=== PATIENT | male | born 1950 | race Caucasian/White ===

== ENCOUNTER → 2017-12-14 09:04 | Outpatient (CLI) | payer MEDICARE, OTHER, SELFPAY ==
[2017-12-14 09:44] VITALS: BP 145/74; BP 149/88; PULSE 110; PULSE 67; RESP 18; RESP 22; O2SAT 75; O2SAT 88
== END ==
PROVIDERS: PCP Family Medicine; Visit Provider Internal Medicine
DX: R06.02 Shortness of breath (principal); J84.9 Interstitial pulmonary disease, unspecified; R09.02 Hypoxemia
CPT/HCPCS: 94618

== ENCOUNTER → 2018-01-08 10:10 | Outpatient (POV) | payer MEDICARE, OTHER, SELFPAY ==
[2018-01-08 12:33] LABS: Basophils # 0.1 K/mm3 (0-0.2); Basophils % 0.7 % (0.1-2.0); Eosinophils # 0.2 K/mm3 (0.0-0.4); Hematocrit 48.2 % (42.0-52.0); Hemoglobin 16.1 g/dL (14.1-18.0); Lymphocytes # 2.2 K/mm3 (0.7-4.5); Lymphocytes % 28.4 K/mm3 (10-50); Mean Corpuscular HGB Conc 33.4 g/dL (31.8-35.4); Mean Corpuscular Hemoglobin 34.7 pg (27.0-31.2); Mean Platelet Volume 8.4 fl (7.4-10.4); Monocytes # 0.5 K/mm3 (0.1-1.0); Monocytes % 6.1 % (1.7-9.3); Platelet Count 192 K/mm3 (142-424); Red Blood Count 4.63 M/mm3 (4.60-6.20); White Blood Count 7.9 K/mm3 (4.8-10.8)
[2018-01-08 13:13] LABS: Alanine Aminotransferase 39 U/L (12-78); Albumin Level 3.7 gm/dL (3.4-5.0); Albumin/Globulin Ratio 0.9 (1.1-1.8); Alkaline Phosphatase 79 U/L (46-116); Anion Gap 14.5 mEq/L (5-15); Aspartate Amino Transferase 35 U/L (15-37); Bilirubin,Total 0.8 mg/dL (0.2-1.0); Blood Urea Nitrogen 15 mg/dL (7-18); Calcium 9.5 mg/dL (8.5-10.1); Carbon Dioxide 28 mmol/L (21.0-32.0); Chloride 103 mmol/L (98-107); Creatinine,Serum 0.93 mg/dL (0.70-1.30); Estimated Glomerular Filt Rate 81 ml/min (>60); GFR (African American) 98 ML/MIN (>60); Globulin 4.1 gm/dl (1.3-3.2); Glucose 108 mg/dL (74-106); Potassium 3.5 mmoL/L (3.5-5.1); Sodium 142 mmol/L (136-145); Total Protein,Serum 7.8 gm/dL (6.4-8.2)
== END ==
PROVIDERS: PCP Family Medicine; Visit Provider Internal Medicine
DX: J84.112 Idiopathic pulmonary fibrosis (principal)
CPT/HCPCS: 36415; 80053; 85025

== ENCOUNTER → 2018-06-12 12:13 | Outpatient (CLI) | payer MEDICARE, OTHER, SELFPAY ==
[2018-06-12 13:00] VITALS: PULSE 82; PULSE 88
[2018-06-12 13:30] VITALS: BP 128/87; BP 150/95; PULSE 127; PULSE 83; RESP 18; RESP 24; O2SAT 82; O2SAT 93
--- NOTE | 2018-06-12 13:38 | CT_ITS ---
CT chest wo con HISTORY: idiopathic pulmonary fibrosis ITS.REASON: SHORTNESS OF BREATH,HYPOXEMIA,IPF ORDERING PHYSICIAN: Fausto Medina MD PATIENT AGE: 67 years COMPARISON: 06/06/2017 Technique: Axial images obtained with sagittal and coronal reformats. All CT scans at the facility use one or more dose reduction, viz: automated exposure control, ma/kV adjustment per patient size (including targeted exams where dose is matched to indication, i.e. head), or iterative reconstruction technique. FINDINGS: Scattered small nodes are present in the mediastinum. There is diffuse coronary artery calcification. No evidence of aortic aneurysm. The main pulmonary artery and right and left main pulmonary arteries are somewhat prominent with the pulmonary artery/aortic ratio slightly greater than 1 which may be seen with pulmonary arterial hypertension. No mediastinal or hilar mass. There are centrilobular emphysematous changes. There is mild diffuse pulmonary fibrosis in the peripheral lung sorto most prominent in the mid and lower lung zones. This is similar when compared to the previous exam. Mild diffuse bronchial thickening and mild traction bronchiectasis noted in the lung bases No suspicious nodules or infiltrates. No effusions. Upper abdominal images are unremarkable. IMPRESSION: 1. Mild diffuse pulmonary fibrosis with centrilobular emphysema and diffuse bronchial thickening with traction bronchiectasis overall not significantly changed 2. Coronary artery disease with 3. Mild prominence of the pulmonary arteries suggesting pulmonary arterial hypertension
== END ==
PROVIDERS: PCP Family Medicine; Visit Provider Internal Medicine
DX: R06.02 Shortness of breath (principal); J84.112 Idiopathic pulmonary fibrosis
CPT/HCPCS: 71250; 94060; 94618; 94640; 94726; 94729

== ENCOUNTER → 2018-07-23 08:35 | Outpatient (POV) | payer MEDICARE, OTHER, SELFPAY ==
--- NOTE | 2018-07-23 09:43 | CA_ITS ---
PROCEDURE: 2-D M-mode and color Doppler study INDICATIONS FOR THE TEST: Chest pain COPD Heart Murmur Tobacco Smoking Palpitations Fatigue Syncope Edema Hypertension Diabetes Mellitus Rheumatic Fever SOB+LENZ Obesity Hyperlipidemia Family History HD Additional History PULMONARY HTN PATIENT INFORMATION HEIGHT: 72 WEIGHT:240 GENDER: Male B/P:127/74 2-D/M-MODE INTERPRETATION: 2-D MEASUREMENTS OBSERVED VALUES IN CMS Right Ventricular Dimension (RVDd) 2.2 Interventricular Septum (Thickness)(IVsd) 1.2 Left Ventricular Internal Dimensions(LVIDd) 5.6 Left Ventricular Posterior Wall (Thickness)(LVPWd) 0.8 Aortic Root 3.3 Aortic Cusp Separation 2.0 Left Atrial Dimensions (LAD) 4.1 2D 1. Left atrium is mildly enlarged, left ventricle is normal size, mild concentric left ventricular hypertrophy, visually estimated ejection fraction 55% with no regional wall motion abnormality. 2. The right atrium and right ventricle are mildly enlarged with normal contractility. 3. The aortic valve is minimally thickened and fibrosed. 4. The mitral and tricuspid valvular grossly normal. 5. The pulmonic valve is poorly visualized. 6. No significant pericardial effusion noted. DOPPLER INTERROGATION: Doppler interrogation of the aortic, mitral and tricuspid valvular presence of mild mitral and tricuspid regurgitation, tricuspid regurgitation jet velocity is inadequate for calculation of the right ventricular systolic pressure, grade 1 diastolic dysfunction seen with tissue Doppler evidence of raised left atrial pressure. CONCLUSION: 1. Mild biatrial enlargement, normal left ventricular size, visually estimated ejection fraction 55% with no regional wall motion abnormality, grade 1 diastolic dysfunction seen with tissue Doppler evidence of raised left atrial pressure. 2. Mildly enlarged right ventricle with normal contractility. 3. Mild mitral and tricuspid regurgitation 4. No significant pericardial effusion noted.
[2018-07-23 10:38] LABS: Basophils # 0.1 K/mm3 (0-0.2); Basophils % 0.5 % (0.1-2.0); Eosinophils # 0.1 K/mm3 (0.0-0.4); Eosinophils % 1.4 % (0.1-12.0); Hemoglobin 16.3 g/dL (14.1-18.0); Lymphocytes # 1.9 K/mm3 (0.7-4.5); Lymphocytes % 22.6 K/mm3 (10-50); Mean Corpuscular HGB Conc 32.5 g/dL (31.8-35.4); Mean Corpuscular Hemoglobin 34.3 pg (27.0-31.2); Mean Corpuscular Volume 105.4 fl (80-94); Mean Platelet Volume 7.3 fl (7.4-10.4); Monocytes # 0.5 K/mm3 (0.1-1.0); Neutrophils # 5.8 K/mm3 (1.8-7.8); Neutrophils % 69.6 % (37.0-80.0); Platelet Count 207 K/mm3 (142-424); Red Blood Count 4.75 M/mm3 (4.60-6.20); Red Cell Distribution Width 13.4 % (11.5-17.5); White Blood Count 8.4 K/mm3 (4.8-10.8)
[2018-07-23 12:18] LABS: Alanine Aminotransferase 34 U/L (12-78); Albumin Level 3.8 gm/dL (3.4-5.0); Alkaline Phosphatase 67 U/L (46-116); Aspartate Amino Transferase 35 U/L (15-37); Bilirubin,Direct 0.3 mg/dL (0.0-0.2); Bilirubin,Total 0.8 mg/dL (0.2-1.0); Blood Urea Nitrogen 10 mg/dL (7-18); Carbon Dioxide 25 mmol/L (21.0-32.0); Chloride 99 mmol/L (98-107); Creatinine,Serum 0.94 mg/dL (0.70-1.30); Estimated Glomerular Filt Rate 80 ml/min (>60); GFR (African American) 97 ML/MIN (>60); Glucose 101 mg/dL (74-106); Sodium 139 mmol/L (136-145); Thyroid Stimulating Hormone 1.73 uIU/ml (0.358-3.740); Total Protein,Serum 7.8 gm/dL (6.4-8.2)
== END ==
LOC: SC 08:36 → RT 09:34
PROVIDERS: PCP Family Medicine; Visit Provider Internal Medicine
DX: I27.23 Pulmonary hypertension due to lung diseases and hypoxia (principal); J84.112 Idiopathic pulmonary fibrosis; Z79.899 Other long term (current) drug therapy
CPT/HCPCS: 36415; 80053; 80076; 82248; 84443; 85025; 93306

== ENCOUNTER 2018-09-08 08:59 | Inpatient (IN) ==
--- NOTE | 2018-09-08 09:18 | Emergency Department Note ---
ED Disposition Clinical Impression: Pulmonary fibrosis, Dyspnea on exertion, Hypoxia Community acquired pneumonia Qualifiers: Laterality: unspecified laterality Qualified Code(s): J18.9 - Pneumonia, unspecified organism Dyspnea Qualifiers: Dyspnea type: unspecified Qualified Code(s): R06.00 - Dyspnea, unspecified Disposition: Admitted As Inpatient Condition on Discharge: Fair (Stable) Referrals: Pilar Saez MD [Primary Care Provider] - Madi Toth MD [Staff Physician] - Time of Disposition: 11:35 - Critical Care Critical Care Time: No Attestation: On 09/08/18, the high probability of a clinically significant, sudden or life threatening deterioration of the following system(s) required my full and direct attention, intervention and personal management. The time I documented below is in addition to time spent performing reported procedures but includes the following listed in this critical care notation. Medical Decision Making - Medical Records Medical records reviewed: Yes: I reviewed the patient's medical records. - Subhash Inquiry Pt receiving controlled substance: No Subhash was queried for this patient: No Vital Signs: 09/08/18 09:00 09/08/18 09:04 09/08/18 09:17 Temperature 97.6 F Temperature Source Oral Pulse Rate 77 Pulse Rate [Apical] 77 114 H Respiratory Rate 20 28 H Blood Pressure [Right Radial Artery] 155/89 H 151/103 H Blood Pressure Mean [Right Radial Artery] 111 119 Blood Pressure Source [Right Radial Artery] Automatic Cuff Automatic Cuff Blood Pressure Position [Right Radial Artery] Sitting Sitting 02 Sat by Pulse Oximetry 94 L 70 L 93 L Oxygen Delivery Method Non-Rebreather Nasal Cannula Non-Rebreather Oxygen Flow Rate (LPM) 12 3 15 09/08/18 09:30 09/08/18 10:00 09/08/18 10:49 Temperature Temperature Source Pulse Rate Pulse Rate [Apical] 74 75 60 Respiratory Rate 20 22 20 Blood Pressure [Right Radial Artery] 144/88 H 137/88 132/72 Blood Pressure Mean [Right Radial Artery] 106 104 92 Blood Pressure Source [Right Radial Artery] Automatic Cuff Automatic Cuff Automatic Cuff Blood Pressure Position [Right Radial Artery] Sitting Sitting Sitting 02 Sat by Pulse Oximetry 92 L 93 L 93 L Oxygen Delivery Method Non-Rebreather Venturi Mask Venturi Mask Oxygen Flow Rate (LPM) 12 12 12 - Lab Data Lab results reviewed: Yes: I reviewed the patient's lab results. Lab Results 09/08/18 09:12: Specimen Source Right radial, O2 % 40, ABG pH 7.52 H, ABG pCO2 28.2 L, ABG pO2 60.9 L, ABG HCO3 22.4, ABG Total CO2 23.2, ABG O2 Saturation 92, ABG Base Excess -0.5, Jean Test Acceptable 09/08/18 09:14: WBC 8.8, RBC 4.66, Hgb 16.8, Hct 49.0, MCV 105.3 H, MCH 36.1 H, MCHC 34.3, RDW 14.4, Plt Count 202, MPV 8.0, Neut % (Auto) 73.5, Lymph % (Auto) 18.8, [place] % (Auto) 5.1, Eos % (Auto) 2.0, Baso % (Auto) 0.6, Neut # (Auto) 6.4, Lymph # (Auto) 1.7, [place] # (Auto) 0.4, Eos # (Auto) 0.2, Baso # (Auto) 0.1 09/08/18 09:14: Sodium 140, Potassium 3.1 L, Chloride 100, Carbon Dioxide 27, Anion Gap 12.7, BUN 14, Creatinine 1.09, Estimated Creat Clear 98, Estimated GFR 67, Est GFR ( Amer) 81, Glucose 137 H, Calcium 9.9, Total Bilirubin 1.2 H , AST 23, ALT 28, Alkaline Phosphatase 79, Total Creatine Kinase 50, CK-MB (CK-2) 0.7, Troponin I < 0.02, Total Protein 8.6 H, Albumin 3.7, Globulin 4.9 H, Albumin/Globulin Ratio 0.8 L 09/08/18 09:14: D-Dimer 768 H* 09/08/18 09:14: Magnesium 1.4 09/08/18 09:14: B-Natriuretic Peptide 128 H Result diagrams: 09/08/18 09:14 09/08/18 09:14 Orders (Tests/Meds): ED MEDICATIONS Generic Name Dose Route Start Last Admin Trade Name Freq PRN Reason Stop Dose Admin Aspirin 81 mg 09/08/18 11:45 Aspirin 81mg Enteric Coated Tablet PO 10/08/18 11:44 DAILY GINA Hydrochlorothiazide 25 mg 09/08/18 11:45 Hctz 25mg Tablet PO 10/08/18 11:44 DAILY GINA Azithromycin 500 mg/ Sodium 250 mls @ 250 mls/hr 09/08/18 11:45 Chloride IV 09/22/18 11:44 Q24H [facility] Protocol Ceftriaxone Sodium 1 gm/ 50 mls @ 100 mls/hr 09/08/18 11:45 Sodium Chloride IV 09/22/18 11:44 Q24H [facility] Protocol Metoprolol Tartrate 50 mg 09/08/18 11:45 Lopressor 50mg Tablet PO 10/08/18 11:44 BID GINA Non-Formulary Medication 1 cap 09/08/18 11:45 Beta-Carotene(A)-Vits C,E/Mins [Antioxidant Softgel] PO 10/08/18 11:44 DAILY GINA Non-Formulary Medication 20 mg 09/08/18 11:37 Esomeprazole Magnesium [Esomeprazole Magnesium] PO DAILY PRN stomach Non-Formulary Medication 267 mg 09/08/18 13:00 Pirfenidone [Esbriet] PO 10/08/18 12:59 TID GINA Non-Formulary Medication 100 mg 09/08/18 11:45 Ubidecarenone [Coenzyme Q10] PO 10/08/18 11:44 DAILY [facility] Pravastatin Sodium 40 mg 09/08/18 11:45 Pravachol 40mg Tablet PO 10/08/18 11:44 DAILY [facility] Sodium Chloride 3 ml 09/08/18 09:12 Sodium Chloride 3% 15ml [facility] 10/08/18 09:11 ONCE PRN INDUCE SPUTUM COLLECTION Discontinued Medications Generic Name Dose Route Start Last Admin Trade Name Freq PRN Reason Stop Dose Admin Albuterol/Ipratropium 3 ml 09/08/18 09:12 09/08/18 09:17 Duoneb 3ml Neb 09/08/18 09:13 3 ml ONCE ONE Administration Iopamidol 75 ml 09/08/18 10:42 09/08/18 10:43 [id number]; 75ml Vial IV 09/08/18 10:43 75 ml ONCE ONE Administration Protocol Methylprednisolone Sodium Succinate 125 mg 09/08/18 09:24 09/08/18 09:31 Solu-Medrol 125mg/2ml Vial IV 09/08/18 09:25 125 mg ONCE ONE Administration Potassium Chloride 40 meq 09/08/18 09:57 09/08/18 10:48 Klor-Con 20meq Tablet PO 09/08/18 09:58 40 meq ONCE ONE Administration Sodium Chloride 10 ml 09/08/18 10:42 09/08/18 10:42 Rad-Saline Flush 10ml Syringe IV 09/08/18 10:43 10 ml ONCE ONE Administration Sodium Chloride 50 ml 09/08/18 10:42 09/08/18 10:43 Rad-Sod Chloride 0.9% 250ml IV 09/08/18 10:43 50 ml ONCE ONE Administration ORDERS Category Date Time Status Blood Culture Stat Micro 09/08/18 09:14 Ordered Sputum Culture & Gram Stain Stat Micro 09/08/18 09:12 Ordered Arterial Blood Gas Stat RT 09/08/18 09:12 Ordered EKG Request [ECG Request by /Dread] Stat Y 09/08/18 09:13 Ordered - Radiology Data #1 Image(s): Chest Image Reviewed: Yes I reviewed the patient's radiology image Bilateral pulmonary fibrosis changes. Increased opacification LLL. - ECG Data Tracing #1 I reviewed this ECG and interpreted as documented below: (EKG at 09:32 showed NSR at 72 BPM with age undetermined anterior and inferior infarct changes.) Medical Decision Narrative: 09:21 Pt evaluated. EKG, PCXR and screening labs ordered. DuoNeb ordered. 10:04 EKG, PCXR and labs reviewed. D-dimer elevated so CT PE chest ordered. KCL 40 mEq PO ordered for potassium 3.1. Results of work up to this point discussed with pt, spouse and family. All questions answered. 11:32 CT PE report reviewed. Rocephin 1 gm IVPB and Zithromax 500 mg IVPB ordered. Results of work up, diagnosis and care plan discussed with pt, spouse and family. They understand and all questions answered. I will contact Dr. Toth hearing care practitioner for Dr. Saez and pt will be admitted. Resp/SOB HPI - General Stated Complaint: SOB Time Seen by Provider: 09/08/18 09:07 Mode of Arrival: Wheelchair Source of Information: Patient, Spouse, Relative Limitations: No Limitations - History of Present Illness Pt is here in the ER via POV from home for evaluation c/o increasing dyspnea and LENZ over the past 5 days. Pt does have pulmonary fibrosis and has been getting treated by pipeline engineer Dr. Medina in [place]. He has had a cough that has been nonproductive. No chest pain. Pt is scheduled for a stress test next Sunday. He uses home O2 at night. Pt has not taken any of his usual home medicines this morning. No other complaints. - Related Data Home Medications Medication Instructions Recorded Confirmed aspirin 81 mg tablet,delayed 81 mg PO DAILY 09/04/18 09/08/18 release coenzyme Q10 100 mg capsule 100 mg PO DAILY 09/04/18 09/08/18 esomeprazole magnesium 20 mg 20 mg PO DAILY PRN 09/04/18 09/08/18 capsule,delayed release hydrochlorothiazide 25 mg tablet 25 mg PO DAILY 09/04/18 09/08/18 metoprolol tartrate 50 mg tablet 50 mg PO BID 09/04/18 09/08/18 pirfenidone 267 mg capsule 267 mg PO TID 09/04/18 09/08/18 pravastatin 40 mg tablet 40 mg PO DAILY 09/04/18 09/08/18 vitamin A-vitamin C-vit E-min 1 cap PO DAILY cap 09/04/18 09/08/18 capsule Allergies Allergy/AdvReac Type Severity Reaction Status Date / Time No Known Allergies Allergy Unknown Uncoded 09/18/17 14:49 [facility] History I have reviewed the patient's past medical history: Yes Medical History: Reports:: Gastroesophageal Reflux Disease(GERD), Hepatitis (as a kid), Home Oxygen, Hyperlipidemia, Hypertension, Lung Disease (Pulmonary fibrosis) Comment: Pulmonary fibrosis Other Surgeries: Yes: Appendectomy Amputation: No Fractures: No - Social History Smoking Status: Former smoker Alcohol Intake: current Alcohol Intake Frequency:: holidays/special occasions only Substance Use Type: denies use Household Members: spouse Family Hx:: No significant family history ROS Obtained: Yes All systems reviewed & no additional complaints - Constitutional Constitutional: Reports system reviewed and no additional complaints, except as docu - Eyes Eyes: Reports system reviewed and no additional complaints, except as docu - ENT Ears, Nose, Mouth, and Throat: Reports system reviewed and no additional complaints, except as docu - Cardiovascular Cardiovascular: Reports system reviewed and no additional complaints, except as docu - Respiratory Respiratory: Yes system reviewed and no additional complaints, except as docu, Yes as per HPI, Yes non-productive cough, Yes dyspnea, Yes dyspnea on exertion - Gastrointestinal Gastrointestingal: Reports: system reviewed and no additional complaints, except as docu - Genitourinary Male Genitourinary: Reports system reviewed and no additional complaints, except as docu - Musculoskeletal Musculoskeletal: Reports system reviewed and no additional complaints, except as docu - Integumentary/Breasts Skin/Breast: Reports system reviewed and no additional complaints, except as docu - Neurologic Neurologic: Reports system reviewed and no additional complaints, except as docu - Endocrine Endocrine: Reports system reviewed and no additional complaints, except as docu - Hematologic/Lymphatic Henatologic/Lymphatic: Reports system reviewed and no additional complaints, except as docu - Allergic/Immunologic Allergic/Immunologic: Reports system reviewed and no additional complaints, except as docu Physical Exam - General General appearance: alert, anxious (mild), other (appears dyspneic) - Head Head exam: atraumatic, normocephalic - Eye Eye exam: Present: PERRL, EOMI - ENT ENT exam: Present: mucous membranes moist - Neck Neck exam: Present: trachea midline - Chest Chest inspection: Present: normal inspection, symmetric chest wall rise - Respiratory Respiratory exam: Present: other (Equally diminished BS bilaterally with scattered end expiratory wheeze.) - Cardiovascular Cardiovascular exam: Present: tachycardia, normal heart sounds - Abdominal Exam Abdominal exam: Present: soft. Absent: tenderness, rebound - Extremities Exam Extremities exam: Present: normal inspection, full ROM. Absent: tenderness, pedal edema - Neurological Exam Neurological exam: Present: alert, oriented X3, CN II-XII intact - Psychiatric Psychiatric exam: Present: anxious (mildly) - Skin Skin exam: Present: warm, dry, other (ashen )
[2018-09-08 09:34] LABS: Basophils # 0.1 K/mm3 (0-0.2); Basophils % 0.6 % (0.1-2.0); Eosinophils # 0.2 K/mm3 (0.0-0.4); Hemoglobin 16.8 g/dL (14.1-18.0); Lymphocytes # 1.7 K/mm3 (0.7-4.5); Lymphocytes % 18.8 % (10-50); Mean Corpuscular HGB Conc 34.3 g/dL (31.8-35.4); Mean Corpuscular Hemoglobin 36.1 pg (27.0-31.2); Mean Corpuscular Volume 105.3 fl (80-94); Monocytes # 0.4 K/mm3 (0.1-1.0); Monocytes % 5.1 % (1.7-9.3); Neutrophils # 6.4 K/mm3 (1.8-7.8); Neutrophils % 73.5 % (37.0-80.0); Platelet Count 202 K/mm3 (142-424); Red Blood Count 4.66 M/mm3 (4.60-6.20); Red Cell Distribution Width 14.4 % (11.5-17.5); White Blood Count 8.8 K/mm3 (4.8-10.8)
[2018-09-08 09:42] LABS: ABG Base Excess -0.5 mmol/L (-2.4-2.3); ABG HCO3 22.4 mmhg (22.0-26.0); ABG Oxygen Saturation 92 % (90-100); ABG PCO2 28.2 mmhg (35.0-45.0); ABG PH 7.52 mmol/L (7.35-7.45); ABG PO2 60.9 mmhg (80-100); ABG TCO2 23.2 mmhg (23-27)
[2018-09-08 09:44] LABS: Oxygen 40 %
[2018-09-08 09:45] LABS: Allen's Test Acceptable
[2018-09-08 09:55] LABS: Anion Gap 12.7 mEq/L (5-15); Blood Urea Nitrogen 14 mg/dL (7-18); Carbon Dioxide 27 mmol/L (21.0-32.0); Chloride 100 mmol/L (98-107); Creatine Kinase 50 U/L (39-308); Potassium 3.1 mmoL/L (3.5-5.1); Sodium 140 mmol/L (136-145)
[2018-09-08 09:56] LABS: Alanine Aminotransferase 28 U/L (12-78); Albumin Level 3.7 gm/dL (3.4-5.0); Albumin/Globulin Ratio 0.8 (1.1-1.8); Alkaline Phosphatase 79 U/L (46-116); Aspartate Amino Transferase 23 U/L (15-37); Bilirubin,Total 1.2 mg/dL (0.2-1.0); Calcium 9.9 mg/dL (8.5-10.1); Globulin 4.9 gm/dl (1.3-3.2); Glucose 137 mg/dL (74-106); Total Protein,Serum 8.6 gm/dL (6.4-8.2)
--- NOTE | 2018-09-08 12:39 | Pharmacy Consult Notes ---
[facility] Pharmacy VTE Monitoring - Patient Demographics Admission date: 09/08/18 Report Date: 09/08/18 Time: 12:39 Allergies/Adverse Reactions: Patient Allergies No Known Allergies Allergy (Unverified 09/08/18 12:32) Height: 1.83 m Weight: 108.862 kg Patient Problems: Current Active Problems Community acquired pneumonia (Acute) Dyspnea (Acute) Dyspnea on exertion (Acute) Hypoxia (Acute) Pulmonary fibrosis (Chronic) - VTE Risk Labs: VTE Related Lab Results Hgb 16.8 g/dL (14.1-18.0) 09/08/18 09:14 Hct 49.0 % (42.0-52.0) 09/08/18 09:14 Plt Count 202 K/mm3 (142-424) 09/08/18 09:14 BUN 14 mg/dL (7-18) 09/08/18 09:14 Creatinine 1.09 mg/dL (0.70-1.30) 09/08/18 09:14 Estimated Creat Clear 98 mL/min (50-200) 09/08/18 09:14 - Prophylaxis VTE Prophylaxis Ordered?: Yes Types of VTE Prophylaxis: TEDS Knee High Location of Applied Device: Bilateral Lower Extremeties - VTE Diagnosis Confirmed Treatment or plan recommended: Continue Current Treatment
--- NOTE | 2018-09-09 08:55 | History & Physical Report ---
*Admission Date: 09/08/18 <Suzie Lowry 09/09/18 08:55> *Chief complaint: Shortness of breath <Suzie Lowry 09/09/18 08:55> *History of present illness: Mr. Aviles is a 68-year-old male with a history of idiopathic pulmonary fibrosis/pulmonary emphysema, pulmonary hypertension due to the interstitial lung disease, and high risk medication use. Presented to [facility] emergency room yesterday after progressive shortness of breath over the past 4 to 5 days. Describes a dry nonproductive cough. He has had difficulty ambulating very short distances. He denies fever and chest pain. Patient is followed by cigar brander Dr. Medina in [place]. Pt is scheduled for a stress test next Sunday. He uses home O2 at night. He is also on the drug Esbriet which has caused diarrhea. He has had minimal p.o. intake for the last 2-3 days. <Suzie Lowry 09/09/18 09:17> [facility] History Medical History: Reports:: Gastroesophageal Reflux Disease(GERD), Hepatitis (as a kid), Home Oxygen, Hyperlipidemia, Hypertension, Lung Disease (Pulmonary fibrosis) Denies:: Cancer, Diabetes Mellitus Type 1, Diabetes Mellitus Type 2, Pulmonary Embolism <Suzie Lowry 09/09/18 09:17> Comment: Pulmonary fibrosis; pulmonary hypertension <Suzie Lowry 09/09/18 09:17> Other Surgeries: Yes: Appendectomy <Suzie Lowry 09/09/18 08:55> Amputation: No <Suzie Lowry 09/09/18 08:55> Fractures: No <Suzie Lowry 09/09/18 08:55> - *Social History Educational Level: Attended College <Suzie Lowry 09/09/18 08:55> Tobacco Type: e-cigarettes <Suzie Lowry 09/09/18 08:55> Alcohol Intake: current <Suzie Lowry 09/09/18 08:55> Alcohol Intake Frequency:: holidays/special occasions only <Suzie Lowry 09/09/18 08:55> Substance Use Type: denies use <Suzie Lowry 09/09/18 08:55> Occupational Status: employed, retired <Suzie Lowry 09/09/18 08:55> Household Members: spouse <Suzie Lowry 09/09/18 08:55> - Psychiatric History Expresses thoughts of harming self/others: None <Suzie oLwry 09/09/18 08:55> Suicide Plan Description: No Plan <Suzie Lowry 09/09/18 08:55> *Family Hx:: No significant family history <Suzie Lowry 09/09/18 08:55> Review of Systems - Constitutional Reports weakness, Denies fever(s) <Suzie Lowry 09/09/18 09:17> - ENT Denies headache(s), Denies sore throat <Suzie Lowry 09/09/18 09:17> - *Cardiovascular Reports shortness of breath, Reports shortness of breath with activity, Denies chest pain, Denies generalized swelling, Denies irregular heart rhythm, Denies leg swelling, Denies rapid, pounding, or irregular heartbeat <Suzie Lowry 09/09/18 09:17> - *Respiratory Reports cough, Reports shortness of breath, Reports shortness of breath with activity, Denies chest congestion, Denies coughing up blood, Denies pain with cough, Denies wheezing <Suzie Lowry 09/09/18 09:17> - *Gastrointestinal Reports loose stools (Watery stools 2 times daily. Occurs mostly after he eats), Denies abdominal pain, Denies heartburn, Denies black, tarry stools, Denies nausea, Denies vomiting <LowrySuzie 09/09/18 09:17> - *Genitourinary Denies difficulty urinating <Suzie Lowry 09/09/18 09:17> - *Musculoskeletal Comments: Shortness of breath with walking to the bathroom <Suzie Lowry 09/09/18 09:17> - *Neurologic Reports dizziness, Denies behavioral changes, Denies confusion, Denies seizure- like activity, Denies seizure-like activity <Suzie Lowry 09/09/18 09:17> Meds Home Medications Medication Instructions Recorded Confirmed Type aspirin 81 mg tablet,delayed 81 mg PO DAILY 09/04/18 09/08/18 History release coenzyme Q10 100 mg capsule 100 mg PO DAILY 09/04/18 09/08/18 History esomeprazole magnesium 20 mg 20 mg PO DAILYP PRN 09/04/18 09/08/18 History capsule,delayed release hydrochlorothiazide 25 mg tablet 25 mg PO DAILY 09/04/18 09/08/18 History metoprolol tartrate 50 mg tablet 50 mg PO BID 09/04/18 09/08/18 History pirfenidone 267 mg capsule 267 mg PO TID 09/04/18 09/08/18 History pravastatin 40 mg tablet 40 mg PO DAILY 09/04/18 09/08/18 History vitamin A-vitamin C-vit E-min 1 cap PO DAILY cap 09/04/18 09/08/18 History capsule Losartan Potassium [Cozaar] 50 mg PO DAILY 09/08/18 09/08/18 History <Madi Toth - 09/09/18 14:18> Allergies Allergy/AdvReac Type Severity Reaction Status Date / Time No Known Allergies Allergy Unverified 09/08/18 12:32 <Madi Toth - 09/09/18 14:18> Exam Vital signs and Labs for Last 24 Hours: Temp Pulse Resp BP Pulse Ox 97.5 F L 85 22 126/74 92 L 09/09/18 11:41 09/09/18 13:28 09/09/18 11:41 09/09/18 11:41 09/09/18 11:41 Laboratory Results - last 24 hr 09/08/18 15:36: Lactate 1.7 09/09/18 09:40: Sodium 140, Potassium 3.3 L, Chloride 104, Carbon Dioxide 23, Anion Gap 16.3 H, BUN 17, Creatinine 1.11, Estimated Creat Clear 95, Estimated GFR 66, Est GFR ( Amer) 79, Glucose 231 H, Calcium 8.2 L D <Madi Toth - 09/09/18 14:18> Temp Pulse Resp BP Pulse Ox 97.5 F L 93 H 21 137/64 91 L 09/09/18 08:00 09/09/18 08:00 09/09/18 08:00 09/09/18 08:00 09/09/18 08:00 Laboratory Results - last 24 hr 09/08/18 09:12: Specimen Source Right radial, O2 % 40, ABG pH 7.52 H, ABG pCO2 28.2 L, ABG pO2 60.9 L, ABG HCO3 22.4, ABG Total CO2 23.2, ABG O2 Saturation 92, ABG Base Excess -0.5, Jean Test Acceptable 09/08/18 09:14: WBC 8.8, RBC 4.66, Hgb 16.8, Hct 49.0, MCV 105.3 H, MCH 36.1 H, MCHC 34.3, RDW 14.4, Plt Count 202, MPV 8.0, Neut % (Auto) 73.5, Lymph % (Auto) 18.8, [place] % (Auto) 5.1, Eos % (Auto) 2.0, Baso % (Auto) 0.6, Neut # (Auto) 6.4, Lymph # (Auto) 1.7, [place] # (Auto) 0.4, Eos # (Auto) 0.2, Baso # (Auto) 0.1 09/08/18 09:14: Sodium 140, Potassium 3.1 L, Chloride 100, Carbon Dioxide 27, Anion Gap 12.7, BUN 14, Creatinine 1.09, Estimated Creat Clear 98, Estimated GFR 67, Est GFR ( Amer) 81, Glucose 137 H, Calcium 9.9, Total Bilirubin 1.2 H, AST 23, ALT 28, Alkaline Phosphatase 79, Total Creatine Kinase 50, CK-MB (CK- 2) 0.7, Troponin I < 0.02, Total Protein 8.6 H, Albumin 3.7, Globulin 4.9 H, Albumin/Globulin Ratio 0.8 L 09/08/18 09:14: D-Dimer 768 H* 09/08/18 09:14: Magnesium 1.4 09/08/18 09:14: B-Natriuretic Peptide 128 H 09/08/18 09:14: Lactate 3.0 H 09/08/18 13:30: Lactate 2.3 H 09/08/18 15:36: Lactate 1.7 <Suzie Lowry - 09/09/18 08:55> I & O for Last 24 hours: Intake & Output 09/07/18 09/08/18 09/09/18 09/10/18 11:59 11:59 11:59 11:59 Intake Total 222 / 2227 480 / 480 Balance 2226 / 2227 480 / 480 Weight 240 lb 236 lb 6 oz <Madi Toth - 09/09/18 14:18> Intake & Output 09/06/18 09/07/18 09/08/18 09/09/18 11:59 11:59 11:59 11:59 Intake Total 2226 / 7 Balance 222 / 2227 Weight 240 lb 236 lb 6 oz <Suzie Lowry - 09/09/18 08:55> Microbiology Reports for the Last 24 Hours: Microbiology 09/09/18 11:10 Sputum - Expectorated Sputum Gram Stain - Final <Madi Toth - 09/09/18 14:18> Radiology Reports for the Last 24 Hours: 09/08/2018 chest x-ray IMPRESSION: Cardiomegaly with pulmonary fibrosis 09/08/2018 CT of chest IMPRESSION: 1. No evidence of pulmonary embolus, aortic aneurysm, or aortic dissection. 2. Diffuse pulmonary fibrosis with superimposed ground glass density in the left upper lobe, right apex, and right lower lobe which could be due to edema or pneumonitis <Suzie Lowry 09/09/18 09:17> - Constitutional no acute distress <Suzie Lowry 09/09/18 09:17> - *Routine HEENT Exam Head: Present: normocephalic, atraumatic <Suzie Lowry 09/09/18 09:17> Eye: Present: PERRL. Absent: conjunctival icterus, scleral injection <Suzie Lowry 09/09/18 09:17> ENT: Present: mucous membranes moist, oropharynx clear <Suzie Lowry 09/09/18 09:17> - *Routine Neck Exam Present: supple, full ROM. Absent: carotid bruit, lymphadenopathy, thyromegaly <Suzie Lowry 09/09/18 09:17> - *Routine Respiratory Exam Comments: Fibrotic crackles posteriorly and bases <Suzie Lowry 09/09/18 09:17> - *Routine Cardiovascular Exam Present: RRR <Suzie Lowry 09/09/18 09:17> Comments: Monitor showing sinus rhythm in the 90s <Suzie Lowry 09/09/18 09:17> - *Routine Abdominal Exam Present: soft, normoactive bowel sounds. Absent: tenderness, distended, guarding <Suzie Lowry - 09/09/18 09:17> - *Routine Extremities Exam Absent: edema, calf tenderness <Suzie Lowry - 09/09/18 09:17> - *Routine Neurological Exam Present: alert, oriented X3 <Suzie Lowry - 09/09/18 09:17> Assessment and Plan (1) Community acquired pneumonia Current visit: Yes Status: Acute Qualifiers: Laterality: unspecified laterality Qualified Code(s): J18.9 - Pneumonia, unspecified organism Category: Medical Code(s): J18.9 - Pneumonia, unspecified organism (2) Pulmonary hypertension Current visit: Yes Status: Chronic Category: Medical Code(s): I27.20 - Pulmonary hypertension, unspecified (3) High risk medication use Current visit: Yes Status: Chronic Category: Medical Code(s): Z79.899 - Other usp (current) drug therapy (4) Dyspnea Current visit: Yes Status: Acute Qualifiers: Dyspnea type: unspecified Qualified Code(s): R06.00 - Dyspnea, unspecified Category: Medical Code(s): R06.00 - Dyspnea, unspecified (5) Hypoxia Current visit: Yes Status: Acute Category: Medical Code(s): R09.02 - Hypoxemia (6) Pulmonary fibrosis Current visit: Yes Status: Chronic Category: Medical Code(s): J84.10 - Pulmonary fibrosis, unspecified (7) Dizziness Current visit: No Status: Acute Category: Medical Code(s): R42 - Dizziness and giddiness <Madi Toth - 09/09/18 14:18> (1) Community acquired pneumonia Current visit: Yes Status: Acute Qualifiers: Laterality: unspecified laterality Qualified Code(s): J18.9 - Pneumonia, unspecified organism Category: Medical Code(s): J18.9 - Pneumonia, unspecified organism (2) Pulmonary hypertension Current visit: Yes Status: Chronic Category: Medical Code(s): I27.20 - Pulmonary hypertension, unspecified (3) High risk medication use Current visit: Yes Status: Chronic Category: Medical Code(s): Z79.899 - Other field supervisor (current) drug therapy (4) Dyspnea Current visit: Yes Status: Acute Qualifiers: Dyspnea type: unspecified Qualified Code(s): R06.00 - Dyspnea, unspecified Category: Medical Code(s): R06.00 - Dyspnea, unspecified (5) Hypoxia Current visit: Yes Status: Acute Category: Medical Code(s): R09.02 - Hypoxemia (6) Pulmonary fibrosis Current visit: Yes Status: Chronic Category: Medical Code(s): J84.10 - Pulmonary fibrosis, unspecified (7) Dizziness Current visit: No Status: Acute Category: Medical Code(s): R42 - Dizziness and giddiness <Suzie Lowry - 09/09/18 08:57> - Assessment and plan all Dx Assessment and Plan for all problems:: Saw patient, agree with above note. <Madi Toth - 09/09/18 14:18> Antibiotics Rocephin and Zithromax, duo nebs, and steroids. Will repeat BMP this morning. IV fluid rate decreased. <Suzie Lowry - 09/09/18 09:17>
[2018-09-09 10:06] LABS: Anion Gap 16.3 mEq/L (5-15); Potassium 3.3 mmoL/L (3.5-5.1)
[2018-09-09 10:12] LABS: Calcium 8.2 mg/dL (8.5-10.1)
--- NOTE | 2018-09-09 21:46 | Cardiology Report ---
PROCEDURE: 2-D M-mode and color Doppler study INDICATIONS FOR THE TEST: Chest pain COPD Heart Murmur Tobacco Smoking+ Palpitations Fatigue Syncope Edema Hypertension+Diabetes Mellitus Rheumatic Fever SOB+LENZ Obesity Hyperlipidemia+ Family History HD Additional History pulmonary fibrosis, pulmonary htn PATIENT INFORMATION HEIGHT:72 WEIGHT:236 GENDER: Male B/P:137/64 2-D/M-MODE INTERPRETATION: 2-D MEASUREMENTS OBSERVED VALUES IN CMS Right Ventricular Dimension (RVDd) 1.8 Interventricular Septum (Thickness)(IVsd) 0.8 Left Ventricular Internal Dimensions(LVIDd) 5.1 Left Ventricular Posterior Wall (Thickness)(LVPWd) 0.7 Aortic Root 2.8 Aortic Cusp Separation 1.6 Left Atrial Dimensions (LAD) 4.3 2D 1. Technically very difficult study because of the patient's factor and poor acoustic windows 2. Left atrium is mildly enlarged, left ventricle is normal size, mild concentric left ventricular hypertrophy, preserved left ventricular systolic function, visually estimated ejection fraction of 55% with no regional wall motion abnormality. Endocardial surfaces are poorly visualized. 3. The right atrium and right ventricle are moderately enlarged, contractility of the right ventricle is normal. 4. The aortic valve is thickened and calcified leaflet continue to display mobility 5. The mitral and tricuspid valve leaflets are minimally thickened. 6. The pulmonic valve is poorly visualized. 7. No significant pericardial effusion noted. DOPPLER INTERROGATION: Doppler interrogation of the aortic, mitral and tricuspid valvular presence of mild mitral and tricuspid regurgitation, tricuspid regurgitation jet velocity is inadequate for calculation of the right ventricular systolic pressure, diastolic parameters are inconclusive. CONCLUSION: 1. Biatrial enlargement, normal left ventricular size, mild concentric left ventricular hypertrophy, visually estimated ejection fraction of 55% with no regional wall motion abnormality. Diastolic parameters are inconclusive. 2. Moderately enlarged right ventricle with normal contractility. 3. Mild mitral and tricuspid regurgitation 4. No significant pericardial effusion noted.
[2018-09-10 06:21] LABS: Hematocrit 44.3 % (42.0-52.0); Hemoglobin 13.9 g/dL (14.1-18.0); Lymphocytes # 0.7 K/mm3 (0.7-4.5); Lymphocytes % 4.9 % (10-50); Mean Corpuscular HGB Conc 31.3 g/dL (31.8-35.4); Mean Corpuscular Hemoglobin 33.7 pg (27.0-31.2); Mean Corpuscular Volume 107.4 fl (80-94); Mean Platelet Volume 8.3 fl (7.4-10.4); Monocytes # 0.3 K/mm3 (0.1-1.0); Monocytes % 2.2 % (1.7-9.3); Neutrophils # 12.2 K/mm3 (1.8-7.8); Neutrophils % 92.8 % (37.0-80.0); Platelet Count 168 K/mm3 (142-424); Red Blood Count 4.12 M/mm3 (4.60-6.20); Red Cell Distribution Width 14.4 % (11.5-17.5); White Blood Count 13.2 K/mm3 (4.8-10.8)
[2018-09-10 06:24] LABS: Anion Gap 14.6 mEq/L (5-15); Calcium 8.2 mg/dL (8.5-10.1); Potassium 3.6 mmoL/L (3.5-5.1)
--- NOTE | 2018-09-10 07:48 | Progress Note ---
<Suzie Lowry - Last Filed: 09/10/18 07:42> Internal Medicine - PN: Subj *Date: 09/10/18 *Time: 07:42 Interval history: Walked into [facility] and patient found extremely SOB after walking to BR with help; O2 sat low at 43% and increased to 70's with O2 at 4 LPM. Changed to nathan mask at 50% with ncrease in sats to 89%; given IV lasix 40mg ( reviewed I&O for last 24 hours). Labs reviewed. Pt denies CP but did feel like he would pass out. Stat EKG,ABG's TI,CXR to be done. 751AM pt better --changed back to O2 per NC at 4 1/2 LPM . pt hungry and wants to eat. IV changed to saline lock Patient states he did sleep well last night. He is hungry this AM; states he never has CP. Exam Vital signs and Labs for Last 24 Hours: Temp Pulse Resp BP Pulse Ox 97.9 F 94 H 22 142/86 H 90 L 09/10/18 04:00 09/10/18 06:12 09/10/18 04:00 09/10/18 04:00 09/10/18 06:12 Laboratory Results - last 24 hr 09/09/18 09:40: Sodium 140, Potassium 3.3 L, Chloride 104, Carbon Dioxide 23, Anion Gap 16.3 H, BUN 17, Creatinine 1.11, Estimated Creat Clear 95, Estimated GFR 66, Est GFR ( Amer) 79, Glucose 231 H, Calcium 8.2 L D 09/10/18 06:05: WBC 13.2 H D, RBC 4.12 L, Hgb 13.9 L, Hct 44.3, MCV 107.4 H, MCH 33.7 H, MCHC 31.3 L, RDW 14.4, Plt Count 168, MPV 8.3, Neut % (Auto) 92.8 H, Lymph % (Auto) 4.9 L, [place] % (Auto) 2.2, Eos % (Auto) 0.0 L, Baso % (Auto) 0.0 L , Neut # (Auto) 12.2 H, Lymph # (Auto) 0.7, [place] # (Auto) 0.3, Eos # (Auto) 0.0, Baso # (Auto) 0.0 09/10/18 06:05: Sodium 142, Potassium 3.6, Chloride 107, Carbon Dioxide 24, Anion Gap 14.6, BUN 18, Creatinine 1.10, Estimated Creat Clear 96, Estimated GFR 66, Est GFR ( Amer) 80, Glucose 180 H D, Calcium 8.2 L I & O for Last 24 hours: Intake & Output 09/07/18 09/08/18 09/09/18 09/10/18 11:59 11:59 11:59 11:59 Intake Total 2227 / 2227 2787 / 2787 Output Total 400 / 400 Balance 2227 / 2227 2387 / 2387 Weight 240 lb 236 lb 6 oz Microbiology Reports for the Last 24 Hours: Microbiology 09/09/18 11:10 Sputum - Expectorated Sputum Gram Stain - Final - Constitutional severe distress Comments: see note; dyspneic with talking - *Routine Respiratory Exam Comments: fine crackles throughout - *Routine Cardiovascular Exam Present: RRR (tachcardia) - *Routine Abdominal Exam Present: soft, normoactive bowel sounds. Absent: tenderness - *Routine Extremities Exam Absent: edema, calf tenderness - *Routine Skin Exam Comments: cyanotic nailbeds - *Routine Neurological Exam Present: alert, oriented X3 Assessment and Plan (1) Community acquired pneumonia Current visit: Yes Status: Acute Qualifiers: Laterality: unspecified laterality Qualified Code(s): J18.9 - Pneumonia, unspecified organism Category: Medical Code(s): J18.9 - Pneumonia, unspecified organism (2) Pulmonary hypertension Current visit: Yes Status: Chronic Category: Medical Code(s): I27.20 - Pulmonary hypertension, unspecified (3) High risk medication use Current visit: Yes Status: Chronic Category: Medical Code(s): Z79.899 - Other custodial (current) drug therapy (4) Dyspnea Current visit: Yes Status: Acute Qualifiers: Dyspnea type: unspecified Qualified Code(s): R06.00 - Dyspnea, unspecified Category: Medical Code(s): R06.00 - Dyspnea, unspecified (5) Hypoxia Current visit: Yes Status: Acute Category: Medical Code(s): R09.02 - Hypoxemia (6) Pulmonary fibrosis Current visit: Yes Status: Chronic Category: Medical Code(s): J84.10 - Pulmonary fibrosis, unspecified (7) Dizziness Current visit: No Status: Acute Category: Medical Code(s): R42 - Dizziness and giddiness - Assessment and plan all Dx Assessment and Plan for all problems:: tests as listed; will do continuous O2 monitoring and adjust O2 accordingly; Lasix has been given; O2 decreased on O2 per NC and will change back to a mask; will place in stepdown as well. <Madi Toth - Last Filed: 09/10/18 09:11> Exam Vital signs and Labs for Last 24 Hours: Temp Pulse Resp BP Pulse Ox 97.9 F 94 H 22 142/86 H 90 L 09/10/18 04:00 09/10/18 06:12 09/10/18 04:00 09/10/18 04:00 09/10/18 06:12 Laboratory Results - last 24 hr 09/09/18 09:40: Sodium 140, Potassium 3.3 L, Chloride 104, Carbon Dioxide 23, Anion Gap 16.3 H, BUN 17, Creatinine 1.11, Estimated Creat Clear 95, Estimated GFR 66, Est GFR ( Amer) 79, Glucose 231 H, Calcium 8.2 L D 09/10/18 06:05: WBC 13.2 H D, RBC 4.12 L, Hgb 13.9 L, Hct 44.3, MCV 107.4 H, MCH 33.7 H, MCHC 31.3 L, RDW 14.4, Plt Count 168, MPV 8.3, Neut % (Auto) 92.8 H, Lymph % (Auto) 4.9 L, [place] % (Auto) 2.2, Eos % (Auto) 0.0 L, Baso % (Auto) 0.0 L , Neut # (Auto) 12.2 H, Lymph # (Auto) 0.7, [place] # (Auto) 0.3, Eos # (Auto) 0.0, Baso # (Auto) 0.0 09/10/18 06:05: Sodium 142, Potassium 3.6, Chloride 107, Carbon Dioxide 24, Anion Gap 14.6, BUN 18, Creatinine 1.10, Estimated Creat Clear 96, Estimated GFR 66, Est GFR ( Amer) 80, Glucose 180 H D, Calcium 8.2 L 09/10/18 07:48: Specimen Source R radial, O2 % 4.5lpm, ABG pH 7.47 H, ABG pCO2 25.0 L, ABG pO2 45.6 L, ABG HCO3 17.6 L, ABG Total CO2 18.3 L, ABG O2 Saturation 82 L*, ABG Base Excess -6.2 L, Jean Test Acceptable 09/10/18 07:58: Troponin I < 0.02 I & O for Last 24 hours: Intake & Output 09/07/18 09/08/18 09/09/18 09/10/18 11:59 11:59 11:59 11:59 Intake Total 2227 / 2227 2787 / 2787 Output Total 550 / 550 Balance 2227 / 2227 2237 / 2237 Weight 240 lb 236 lb 6 oz Microbiology Reports for the Last 24 Hours: Microbiology 09/09/18 11:10 Sputum - Expectorated Sputum Gram Stain - Final 09/09/18 11:10 Sputum - Expectorated Sputum Sputum Culture - Preliminary Assessment and Plan (1) Community acquired pneumonia Current visit: Yes Status: Acute Qualifiers: Laterality: unspecified laterality Qualified Code(s): J18.9 - Pneumonia, unspecified organism Category: Medical Code(s): J18.9 - Pneumonia, unspecified organism (2) Pulmonary hypertension Current visit: Yes Status: Chronic Category: Medical Code(s): I27.20 - Pulmonary hypertension, unspecified (3) High risk medication use Current visit: Yes Status: Chronic Category: Medical Code(s): Z79.899 - Other custodial (current) drug therapy (4) Dyspnea Current visit: Yes Status: Acute Qualifiers: Dyspnea type: unspecified Qualified Code(s): R06.00 - Dyspnea, unspecified Category: Medical Code(s): R06.00 - Dyspnea, unspecified (5) Hypoxia Current visit: Yes Status: Acute Category: Medical Code(s): R09.02 - Hypoxemia (6) Pulmonary fibrosis Current visit: Yes Status: Chronic Category: Medical Code(s): J84.10 - Pulmonary fibrosis, unspecified (7) Dizziness Current visit: No Status: Acute Category: Medical Code(s): R42 - Dizziness and giddiness - Assessment and plan all Dx Assessment and Plan for all problems:: Saw patient, agree with above note. He is on NRB mask at this point, sats re in mid 90's, have asked Dr. Medina to see patient today.
[2018-09-10 08:14] LABS: ABG Base Excess -6.2 mmol/L (-2.4-2.3); ABG HCO3 17.6 mmhg (22.0-26.0); ABG Oxygen Saturation 82 % (90-100); ABG PH 7.47 mmol/L (7.35-7.45); ABG TCO2 18.3 mmhg (23-27); Allen's Test ACCEPTABLE; Oxygen 4.5LPM %
[2018-09-10 08:15] LABS: ABG PO2 45.6 mmhg (80-100)
[2018-09-10 09:53] LABS: Lymphocytes % 2 % (10-50); Macrocytosis 2+; Monocytes % 1 % (2-9); Neutrophils % 96 % (42-76); Total Cells Counted 100
--- NOTE | 2018-09-10 12:32 | Consult Report ---
*Admission Date: 09/08/18 *Chief complaint: I'm so short of breath. *History of present illness: Mr. 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 He has been taking Esbriet for over a year and I have had to reduce the dose, initially because of elevated liver function tests and, most recently, because of diarrhea. When I last saw him in July, he was feeling more breathless on exertion to the point where it was difficult to carry groceries in from the car. Pulmonary function studies showed a decline in total lung capacity and diffusing capacity over the prior year but the CT scan of the chest had not changed much in the year. I thought that, possibly, orthostatic hypotension might be contributing to some of his symptoms and asked him to modify his blood pressure medication. A week or so ago, he called me to say that he was feeling worse and I had him check his blood pressure from home. He did seem to drop significantly with standing and I totally stopped his blood pressure medication and asked him to see cardiology. He was evaluated last Sunday but, upon leaving the clinic, felt much more short of breath. Dyspnea progressed over the weekend to the point where he could not even put on is closed without turning blue and becoming quite short winded. His and daughter have been sick with a respiratory illness consisting of cough and weakness. He has had no fever or chills and no chest pain, nausea or vomiting. Diarrhea seems less. He said no symptoms of esophageal reflux. His appetite had been pretty good up to this point and his weight has been stable. [facility] History Medical History: Reports:: Gastroesophageal Reflux Disease(GERD), Hepatitis (as a kid), Home Oxygen, Hyperlipidemia, Hypertension, Lung Disease (Pulmonary fibrosis) Denies:: Cancer, Diabetes Mellitus Type 1, Diabetes Mellitus Type 2, Pulmonary Embolism Other Surgeries: Yes: Appendectomy Amputation: No Fractures: No - *Social History Educational Level: Attended College Smoking Status: Current every day smoker Tobacco Type: e-cigarettes Alcohol Intake: current Alcohol Intake Frequency:: holidays/special occasions only Substance Use Type: denies use Occupational Status: employed, retired Household Members: spouse - Psychiatric History Expresses thoughts of harming self/others: None Suicide Plan Description: No Plan *Family Hx:: No significant family history Review of Systems - Review of Systems Review of systems:: pertinent systems reviewed and negative unless documented below - *Gastrointestinal Comments: see hpi - *Genitourinary Comments: occas nocturia - *Neurologic Reports dizziness, Reports weakness, Denies behavioral changes, Denies confusion, Denies seizure-like activity, Denies headache(s), Denies seizure-like activity Meds Home Medications Medication Instructions Recorded Confirmed Type aspirin 81 mg tablet,delayed 81 mg PO DAILY 09/04/18 09/08/18 History release coenzyme Q10 100 mg capsule 100 mg PO DAILY 09/04/18 09/08/18 History esomeprazole magnesium 20 mg 20 mg PO DAILYP PRN 09/04/18 09/08/18 History capsule,delayed release hydrochlorothiazide 25 mg tablet 25 mg PO DAILY 09/04/18 09/08/18 History metoprolol tartrate 50 mg tablet 50 mg PO BID 09/04/18 09/08/18 History pirfenidone 267 mg capsule 267 mg PO TID 09/04/18 09/08/18 History pravastatin 40 mg tablet 40 mg PO DAILY 09/04/18 09/08/18 History vitamin A-vitamin C-vit E-min 1 cap PO DAILY cap 09/04/18 09/08/18 History capsule Losartan Potassium [Cozaar] 50 mg PO DAILY 09/08/18 09/08/18 History Allergies Allergy/AdvReac Type Severity Reaction Status Date / Time No Known Allergies Allergy Unverified 09/08/18 12:32 Exam Vital signs and Labs for Last 24 Hours: Temp Pulse Resp BP Pulse Ox 97.8 F 94 H 30 H 143/87 H 96 09/10/18 12:00 09/10/18 12:00 09/10/18 12:00 09/10/18 12:00 09/10/18 12:00 Laboratory Results - last 24 hr 09/10/18 06:05: WBC 13.2 H D, RBC 4.12 L, Hgb 13.9 L, Hct 44.3, MCV 107.4 H, MCH 33.7 H, MCHC 31.3 L, RDW 14.4, Plt Count 168, MPV 8.3, Neut % (Auto) 92.8 H, Lymph % (Auto) 4.9 L, [place] % (Auto) 2.2, Eos % (Auto) 0.0 L, Baso % (Auto) 0.0 L , Neut # (Auto) 12.2 H, Lymph # (Auto) 0.7, [place] # (Auto) 0.3, Eos # (Auto) 0.0, Baso # (Auto) 0.0, Total Counted 100, Neutrophils % (Manual) 96 H, Lymphocytes % (Manual) 2 L, Atypical Lymphs % 1.0, Monocytes % (Manual) 1 L, Platelet Estimate Normal, Macrocytosis 2+ 09/10/18 06:05: Sodium 142, Potassium 3.6, Chloride 107, Carbon Dioxide 24, Anion Gap 14.6, BUN 18, Creatinine 1.10, Estimated Creat Clear 96, Estimated GFR 66, Est GFR ( Amer) 80, Glucose 180 H D, Calcium 8.2 L 09/10/18 07:48: Specimen Source R radial, O2 % 4.5lpm, ABG pH 7.47 H, ABG pCO2 25.0 L, ABG pO2 45.6 L, ABG HCO3 17.6 L, ABG Total CO2 18.3 L, ABG O2 Saturation 82 L*, ABG Base Excess -6.2 L, Jean Test Acceptable 09/10/18 07:58: Troponin I < 0.02 I & O for Last 24 hours: Intake & Output 09/07/18 09/08/18 09/09/18 09/10/18 23:59 23:59 23:59 23:59 Intake Total 1090 / 1090 3349 / 3349 815 / 815 Output Total 200 / 200 1000 / 1000 Balance 1090 / 1090 3149 / 3149 -185 / -185 Weight 107.218 kg Microbiology Reports for the Last 24 Hours: Microbiology 09/08/18 09:14 Blood Blood Culture - Preliminary NO GROWTH AFTER 48 HOURS 09/08/18 09:14 Blood Blood Culture - Preliminary NO GROWTH AFTER 48 HOURS 09/09/18 11:10 Sputum - Expectorated Sputum Gram Stain - Final 09/09/18 11:10 Sputum - Expectorated Sputum Sputum Culture - Preliminary Narrative: Mr. Aviles is a very pleasant and articulate, overweight man who is sitting upright in bed wearing a nonrebreather mask. He does not seem very breathless in conversation but quickly becomes short of breath if he moves about in bed. HEENT: Sclerae clear; conjunctivae pink; external nares unremarkable; oropharynx shows no mucosal lesions but his mouth is dry. Neck: No JVD; no adenopathy. Chest: Symmetrical expansion; normal percussion note bilaterally; good breath sounds with high-pitched inspiratory crackles at both bases, extending to the mid scapula on the right. Heart: Regular rhythm; no murmur Abdomen: Bowel sounds diminished; soft, nontender, no masses or organomegaly Extremities: No clubbing and trace ankle edema. Internal Medicine - CN: Reslt - Labs CBC & Chem 7: 09/10/18 06:05 09/10/18 06:05 Labs: Short CBC 09/10/18 Range/Units 06:05 WBC 13.2 H D (4.8-10.8) K/mm3 Hgb 13.9 L (14.1-18.0) g/dL Hct 44.3 (42.0-52.0) % Plt Count 168 (142-424) K/mm3 BMP 09/10/18 06:05 Sodium 142 Potassium 3.6 Chloride 107 Carbon Dioxide 24 BUN 18 Creatinine 1.10 Glucose 180 H D Calcium 8.2 L Cardiac Enzymes 09/10/18 Range/Units 07:58 Troponin I < 0.02 (0.00-0.06) ng/ml - ABG Interpretation ABG results: 09/08/18 09/10/18 09:12 07:48 ABG pH 7.52 H 7.47 H ABG pCO2 28.2 L 25.0 L ABG pO2 60.9 L 45.6 L ABG HCO3 22.4 17.6 L ABG Total CO2 23.2 18.3 L ABG O2 Saturation 92 82 L* ABG Base Excess -0.5 -6.2 L Interpretation: respiratory alkalosis (ABG shows a partially compensated respiratory alkalosis with significant hypoxemia.) - Imaging and Cardiology CT scan - chest Additional comments: I personally reviewed the CT scan of the chest are compared to prior CTs. He has extensive changes consistent with the usual interstitial pneumonia pattern of idiopathic pulmonary fibrosis. There may be some subtle increase in these changes, especially on the left. He also has groundglass opacities which are patchy in nature, especially in the left upper lobe. There is no evidence of pneumothorax, atelectasis or consolidation. Assessment and Plan (1) Community acquired pneumonia Current visit: Yes Status: Acute Qualifiers: Laterality: unspecified laterality Qualified Code(s): J18.9 - Pneumonia, unspecified organism Category: Medical Code(s): J18.9 - Pneumonia, unspecified organism (2) Pulmonary hypertension Current visit: Yes Status: Chronic Category: Medical Code(s): I27.20 - Pulmonary hypertension, unspecified (3) High risk medication use Current visit: Yes Status: Chronic Category: Medical Code(s): Z79.899 - Other jail (current) drug therapy (4) Dyspnea Current visit: Yes Status: Acute Qualifiers: Dyspnea type: unspecified Qualified Code(s): R06.00 - Dyspnea, unspecified Category: Medical Code(s): R06.00 - Dyspnea, unspecified (5) Hypoxia Current visit: Yes Status: Acute Category: Medical Code(s): R09.02 - Hypoxemia (6) Pulmonary fibrosis Current visit: Yes Status: Chronic Category: Medical Code(s): J84.10 - Pulmonary fibrosis, unspecified (7) Dizziness Current visit: No Status: Acute Category: Medical Code(s): R42 - Dizziness and giddiness - Assessment and plan all Dx Assessment and Plan for all problems:: Mr. Aviles has idiopathic pulmonary fibrosis complicated by chronic respiratory failure but has developed acute respiratory failure recently. His and daughter have been ill and he does have a patchy groundglass infiltrate. He has not had fever but has had an increasing cough. I think it is possible he is suffering from an atypical pneumonia, possible viral and I have ordered viral PCR. I would continue treatment with a azithromycin for now. I agree with corticosteroids in case this is an acute exacerbation of idiopathic pulmonary f ibrosis. Sometimes, it will respond to pulse dose steroids. I would taper the dose down in a couple of days, however. He has had abnormal liver function tests in the past were presumably related to Esbriet. I have ordered a comprehensive metabolic panel to investigate this. Because he has become so profoundly hypoxemic with minimal exertion, I have ordered a bubble echo to look for a patent foramen ovale with [id number] shunt. The high flow oxygen is drying his nose and mouth quite a bit. It would help if you could humidify it. Please keep in touch with me over the next several days and, if he does not improve, please let me know. Thank you for the opportunity to participate in Mr. Aviles's care.
[2018-09-10 13:04] LABS: Coronavirus 229E Not Detected (NotDetected); Coronavirus NL63 Not Detected (NotDetected); Coronavirus OC43 Not Detected (NotDetected); Coronovirus HKU1,PCR Not Detected (NotDetected)
[2018-09-10 13:31] LABS: Albumin Level 3.2 gm/dL (3.4-5.0); Albumin/Globulin Ratio 0.8 (1.1-1.8); Anion Gap 16.2 mEq/L (5-15); Bilirubin,Total 0.6 mg/dL (0.2-1.0); Calcium 8.1 mg/dL (8.5-10.1); Globulin 4.2 gm/dl (1.3-3.2); Potassium 3.2 mmoL/L (3.5-5.1); Total Protein,Serum 7.4 gm/dL (6.4-8.2)
--- NOTE | 2018-09-10 22:41 | Cardiology Report ---
PROCEDURE: Saline contrast bubble study INDICATIONS FOR THE TEST: Chest pain COPD Heart Murmur Tobacco Smoking + Palpitations Fatigue Syncope Edema Hypertension+Diabetes Mellitus Rheumatic Fever SOB+LENZ Obesity Hyperlipidemia+ Family History HD Additional History PULMONARY FIBROSIS, FULL ECHO YESTERDAY, PUL HTN, BUBBLE STUDY ONLY PATIENT INFORMATION HEIGHT:72 WEIGHT:236 GENDER: Male B/P:137/61 2-D/M-MODE INTERPRETATION: 2-D MEASUREMENTS OBSERVED VALUES IN CMS Right Ventricular Dimension (RVDd) Interventricular Septum (Thickness)(IVsd) Left Ventricular Internal Dimensions(LVIDd) Left Ventricular Posterior Wall (Thickness)(LVPWd) Aortic Root Aortic Cusp Separation Left Atrial Dimensions (LAD) 2D DOPPLER INTERROGATION: CONCLUSION: Saline contrast study fails to identify intracardiac shunt
[2018-09-11 06:11] LABS: Hematocrit 44.3 % (42.0-52.0); Hemoglobin 14.1 g/dL (14.1-18.0); Lymphocytes # 0.8 K/mm3 (0.7-4.5); Lymphocytes % 8.3 % (10-50); Mean Corpuscular HGB Conc 31.8 g/dL (31.8-35.4); Mean Corpuscular Hemoglobin 33.9 pg (27.0-31.2); Mean Corpuscular Volume 106.6 fl (80-94); Mean Platelet Volume 7.8 fl (7.4-10.4); Monocytes # 0.4 K/mm3 (0.1-1.0); Monocytes % 3.5 % (1.7-9.3); Neutrophils # 8.9 K/mm3 (1.8-7.8); Neutrophils % 88.1 % (37.0-80.0); Platelet Count 178 K/mm3 (142-424); Red Blood Count 4.15 M/mm3 (4.60-6.20); Red Cell Distribution Width 14.5 % (11.5-17.5); White Blood Count 10.1 K/mm3 (4.8-10.8)
[2018-09-11 06:17] LABS: Anion Gap 14.6 mEq/L (5-15); Calcium 8.1 mg/dL (8.5-10.1); Potassium 3.6 mmoL/L (3.5-5.1)
[2018-09-11 07:14] LABS: Lymphocytes % 6 % (10-50); Monocytes % 3 % (2-9); Neutrophils % 91 % (42-76); Total Cells Counted 100
[2018-09-11 07:16] LABS: Macrocytosis 2+
--- NOTE | 2018-09-11 08:03 | Progress Note ---
Internal Medicine - PN: Subj *Date: 09/11/18 *Time: 08:03 Exam Vital signs and Labs for Last 24 Hours: Temp Pulse Resp BP Pulse Ox 97.8 F 63 18 146/84 H 97 09/11/18 04:00 09/11/18 06:34 09/11/18 06:34 09/11/18 06:34 09/11/18 06:34 Laboratory Results - last 24 hr 09/10/18 06:05: Total Counted 100, Neutrophils % (Manual) 96 H, Lymphocytes % (Manual) 2 L, Atypical Lymphs % 1.0, Monocytes % (Manual) 1 L, Platelet Estimate Normal, Macrocytosis 2+ 09/10/18 07:48: Specimen Source R radial, O2 % 4.5lpm, ABG pH 7.47 H, ABG pCO2 25.0 L, ABG pO2 45.6 L, ABG HCO3 17.6 L, ABG Total CO2 18.3 L, ABG O2 Saturation 82 L*, ABG Base Excess -6.2 L, Jean Test Acceptable 09/10/18 07:58: Troponin I < 0.02 09/10/18 12:30: Chlamy pneumoniae PCR Not detected, Adenovirus (PCR) Not detected, B. pertussis DNA (PCR) Not detected, Coronavirus OC43 (PCR) Not detected, Coronavirus HKU1 (PCR) Not detected, Coronavirus 229E (PCR) Not detected, Coronavirus NL63 (PCR) Not detected, Human Metapneumovir PCR Not detected, Influenza A (H1) PCR Not detected, Influ A (H1N1/09) PCR Not detected, Influenza A (H3) PCR Not detected, Influenza Type A (PCR) Not detected, Influenza Type B (PCR) Not detected, M. pneumoniae (PCR) Not detected, Parainfluenza 1 (PCR) Not detected, Parainfluenza 2 (PCR) Not detected, Parainfluenza 3 (PCR) Not detected, Parainfluenza 4 (PCR) Not detected, RSV (PCR) Not detected, Entero/Rhino (PCR) Not detected 09/10/18 12:55: Sodium 141, Potassium 3.2 L, Chloride 104, Carbon Dioxide 24, Anion Gap 16.2 H, BUN 20 H, Creatinine 1.31 H, Estimated Creat Clear 81, E stimated GFR 54 L, Est GFR ( Amer) 66, Glucose 160 H, Calcium 8.1 L, Total Bilirubin 0.6, AST 34 D, ALT 37 D, Alkaline Phosphatase 60, Total Protein 7.4, Albumin 3.2 L, Globulin 4.2 H, Albumin/Globulin Ratio 0.8 L 09/11/18 05:30: WBC 10.1, RBC 4.15 L, Hgb 14.1, Hct 44.3, MCV 106.6 H, MCH 33.9 H, MCHC 31.8, RDW 14.5, Plt Count 178, MPV 7.8, Neut % (Auto) 88.1 H, Lymph % (Auto) 8.3 L, [place] % (Auto) 3.5, Eos % (Auto) 0.0 L, Baso % (Auto) 0.0 L, Neut # (Auto) 8.9 H, Lymph # (Auto) 0.8, [place] # (Auto) 0.4, Eos # (Auto) 0.0, Baso # (Auto) 0.0, Total Counted 100, Neutrophils % (Manual) 91 H, Lymphocytes % (Manual) 6 L, Monocytes % (Manual) 3, Platelet Estimate Normal, Macrocytosis 2+ 09/11/18 05:30: Sodium 139, Potassium 3.6, Chloride 104, Carbon Dioxide 24, Anion Gap 14.6, BUN 26 H D, Creatinine 1.00 D, Estimated Creat Clear 106, Estimated GFR 74, Est GFR ( Amer) 90 D, Glucose 149 H, Calcium 8.1 L I & O for Last 24 hours: Intake & Output 09/08/18 09/09/18 09/10/18 09/11/18 23:59 23:59 23:59 23:59 Intake Total 1090 / 1090 3349 / 3349 2927 / 2927 Output Total 200 / 200 1400 / 1400 450 / 450 Balance 1090 / 1090 3149 / 3149 1527 / 1527 -450 / -450 Weight 107.218 kg Microbiology Reports for the Last 24 Hours: Microbiology 09/09/18 11:10 Sputum - Expectorated Sputum Gram Stain - Final 09/09/18 11:10 Sputum - Expectorated Sputum Sputum Culture - Preliminary 09/08/18 09:14 Blood Blood Culture - Preliminary NO GROWTH AFTER 48 HOURS 09/08/18 09:14 Blood Blood Culture - Preliminary NO GROWTH AFTER 48 HOURS Assessment and Plan (1) Community acquired pneumonia Current visit: Yes Status: Acute Qualifiers: Laterality: unspecified laterality Qualified Code(s): J18.9 - Pneumonia, unspecified organism Category: Medical Code(s): J18.9 - Pneumonia, unspecified organism (2) Pulmonary hypertension Current visit: Yes Status: Chronic Category: Medical Code(s): I27.20 - Pul monary hypertension, unspecified (3) High risk medication use Current visit: Yes Status: Chronic Category: Medical Code(s): Z79.899 - Other retirement (current) drug therapy (4) Dyspnea Current visit: Yes Status: Acute Qualifiers: Dyspnea type: unspecified Qualified Code(s): R06.00 - Dyspnea, unspecified Category: Medical Code(s): R06.00 - Dyspnea, unspecified (5) Hypoxia Current visit: Yes Status: Acute Category: Medical Code(s): R09.02 - Hypoxemia (6) Pulmonary fibrosis Current visit: Yes Status: Chronic Category: Medical Code(s): J84.10 - Pulmonary fibrosis, unspecified (7) Dizziness Current visit: No Status: Acute Category: Medical Code(s): R42 - Dizziness and giddiness The patient's infection will respond to the chosen ABx?: Yes Is the patient receiving the right drug, dose, and route?: Yes Could a more targeted ABx be ordered?: No
--- NOTE | 2018-09-11 08:18 | Progress Note ---
<Suzie Lowry - Last Filed: 09/11/18 08:14> Internal Medicine - PN: Subj *Date: 09/11/18 (radha) *Time: 08:15 (Pavel) Interval history: Seems somewhat better today. States his O2 stats dropped when getting up to the bedside commode and with using the bedpan. His main complaint is nasal congestion of the lip left nares. States he uses [id number] nasal sprays for this at home. He continues he continues with a productive cough and has some hemoptysis. He is eating without difficulty. Bowels have moved.. Kidneys are functioning well. He denies chest pain. Patient was switched to Vapotherm yesterday and is now on 100%. Exam Vital signs and Labs for Last 24 Hours: Temp Pulse Resp BP Pulse Ox 97.8 F 63 18 146/84 H 97 09/11/18 04:00 09/11/18 06:34 09/11/18 06:34 09/11/18 06:34 09/11/18 06:34 Laboratory Results - last 24 hr 09/10/18 06:05: Total Counted 100, Neutrophils % (Manual) 96 H, Lymphocytes % (Manual) 2 L, Atypical Lymphs % 1.0, Monocytes % (Manual) 1 L, Platelet Estimate Normal, Macrocytosis 2+ 09/10/18 07:48: Specimen Source R radial, O2 % 4.5lpm, ABG pH 7.47 H, ABG pCO2 25.0 L, ABG pO2 45.6 L, ABG HCO3 17.6 L, ABG Total CO2 18.3 L, ABG O2 Saturation 82 L*, ABG Base Excess -6.2 L, Jean Test Acceptable 09/10/18 07:58: Troponin I < 0.02 09/10/18 12:30: Chlamy pneumoniae PCR Not detected, Adenovirus (PCR) Not detected, B. pertussis DNA (PCR) Not detected, Coronavirus OC43 (PCR) Not detected, Coronavirus HKU1 (PCR) Not detected, Coronavirus 229E (PCR) Not detected, Coronavirus NL63 (PCR) Not detected, Human Metapneumovir PCR Not detected, Influenza A (H1) PCR Not detected, Influ A (H1N1/09) PCR Not detected, Influenza A (H3) PCR Not detected, Influenza Type A (PCR) Not detected, Influenza Type B (PCR) Not detected, M. pneumoniae (PCR) Not detected, Parainfluenza 1 (PCR) Not detected, Parainfluenza 2 (PCR) Not detected, Parainfluenza 3 (PCR) Not detected, Parainfluenza 4 (PCR) Not detected, RSV (PCR) Not detected, Entero/Rhino (PCR) Not detected 09/10/18 12:55: Sodium 141, Potassium 3.2 L, Chloride 104, Carbon Dioxide 24, Anion Gap 16.2 H, BUN 20 H, Creatinine 1.31 H, Estimated Creat Clear 81, Estimated GFR 54 L, Est GFR ( Amer) 66, Glucose 160 H, Calcium 8.1 L, Total Bilirubin 0.6, AST 34 D, ALT 37 D, Alkaline Phosphatase 60, Total Protein 7.4, Albumin 3.2 L, Globulin 4.2 H, Albumin/Globulin Ratio 0.8 L 09/11/18 05:30: WBC 10.1, RBC 4.15 L, Hgb 14.1, Hct 44.3, MCV 106.6 H, MCH 33.9 H, MCHC 31.8, RDW 14.5, Plt Count 178, MPV 7.8, Neut % (Auto) 88.1 H, Lymph % (Auto) 8.3 L, [place] % (Auto) 3.5, Eos % (Auto) 0.0 L, Baso % (Auto) 0.0 L, Neut # (Auto) 8.9 H, Lymph # (Auto) 0.8, [place] # (Auto) 0.4, Eos # (Auto) 0.0, Baso # (Auto) 0.0, Total Counted 100, Neutrophils % (Manual) 91 H, Lymphocytes % (Manual) 6 L, Monocytes % (Manual) 3, Platelet Estimate Normal, Macrocytosis 2+ 09/11/18 05:30: Sodium 139, Potassium 3.6, Chloride 104, Carbon Dioxide 24, Anion Gap 14.6, BUN 26 H D, Creatinine 1.00 D, Estimated Creat Clear 106, Estimated GFR 74, Est GFR ( Amer) 90 D, Glucose 149 H, Calcium 8.1 L I & O for Last 24 hours: Intake & Output 09/08/18 09/09/18 09/10/18 09/11/18 11:59 11:59 11:59 11:59 Intake Total 2226 / 7 3027 / 3027 2112 / 2112 Output Total 825 / 825 1225 / 1225 Balance 7 / 2227 2202 / 2202 887 / 887 Weight 240 lb 236 lb 6 oz Microbiology Reports for the Last 24 Hours: Microbiology 09/09/18 11:10 Sputum - Expectorated Sputum Gram Stain - Final 09/09/18 11:10 Sputum - Expectorated Sputum Sputum Culture - Preliminary 09/08/18 09:14 Blood Blood Culture - Preliminary NO GROWTH AFTER 48 HOURS 09/08/18 09:14 Blood Blood Culture - Preliminary NO GROWTH AFTER 48 HOURS - Constitutional no acute distress Comments: Sitting up in the bed doing crossword puzzles and appears comfortable. Breathing not labored today with talking. - *Routine Respiratory Exam Comments: Bilateral expiratory wheezing. - *Routine Cardiovascular Exam Present: RRR Comments: Monitor showing sinus rhythm - *Routine Abdominal Exam Present: soft, normoactive bowel sounds. Absent: tenderness - *Routine Extremities Exam Absent: edema, calf tenderness - *Routine Neurological Exam Present: alert, oriented X3 Assessment and Plan (1) Community acquired pneumonia Current visit: Yes Status: Acute Qualifiers: Laterality: unspecified laterality Qualified Code(s): J18.9 - Pneumonia, unspecified organism Category: Medical Code(s): J18.9 - Pneumonia, unspecified organism (2) Pulmonary hypertension Current visit: Yes Status: Chronic Category: Medical Code(s): I27.20 - Pulmonary hypertension, unspecified (3) High risk medication use Current visit: Yes Status: Chronic Category: Medical Code(s): Z79.899 - Other long term care social worker (current) drug therapy (4) Dyspnea Current visit: Yes Status: Acute Qualifiers: Dyspnea type: unspecified Qualified Code(s): R06.00 - Dyspnea, unspecified Category: Medical Code(s): R06.00 - Dyspnea, unspecified (5) Hypoxia Current visit: Yes Status: Acute Category: Medical Code(s): R09.02 - Hypoxemia (6) Pulmonary fibrosis Current visit: Yes Status: Chronic Category: Medical Code(s): J84.10 - Pulmonary fibrosis, unspecified (7) Dizziness Current visit: No Status: Acute Category: Medical Code(s): R42 - Dizziness and giddiness - Assessment and plan all Dx Assessment and Plan for all problems:: Will give an additional dose of Lasix today. We will add a nasal spray for nasal congestion. Otherwise will continue with current care. White blood cell count has normalized this a.m. liver function studies were normal yesterday. Repeat echocardiogram is pending. <Sergei Tothian - Last Filed: 09/11/18 08:27> Exam Vital signs and Labs for Last 24 Hours: Temp Pulse Resp BP Pulse Ox 97.8 F 63 18 146/84 H 97 09/11/18 04:00 09/11/18 06:34 09/11/18 06:34 09/11/18 06:34 09/11/18 06:34 Laboratory Results - last 24 hr 09/10/18 06:05: Total Counted 100, Neutrophils % (Manual) 96 H, Lymphocytes % (Manual) 2 L, Atypical Lymphs % 1.0, Monocytes % (Manual) 1 L, Platelet Estimate Normal, Macrocytosis 2+ 09/10/18 07:58: Troponin I < 0.02 09/10/18 12:30: Chlamy pneumoniae PCR Not detected, Adenovirus (PCR) Not detected, B. pertussis DNA (PCR) Not detected, Coronavirus OC43 (PCR) Not detected, Coronavirus HKU1 (PCR) Not detected, Coronavirus 229E (PCR) Not detected, Coronavirus NL63 (PCR) Not detected, Human Metapneumovir PCR Not detected, Influenza A (H1) PCR Not detected, Influ A (H1N1/09) PCR Not detected, Influenza A (H3) PCR Not detected, Influenza Type A (PCR) Not detected, Influenza Type B (PCR) Not detected, M. pneumoniae (PCR) Not detected, Parainfluenza 1 (PCR) Not detected, Parainfluenza 2 (PCR) Not detected, Pa rainfluenza 3 (PCR) Not detected, Parainfluenza 4 (PCR) Not detected, RSV (PCR) Not detected, Entero/Rhino (PCR) Not detected 09/10/18 12:55: Sodium 141, Potassium 3.2 L, Chloride 104, Carbon Dioxide 24, Anion Gap 16.2 H, BUN 20 H, Creatinine 1.31 H, Estimated Creat Clear 81, Estimated GFR 54 L, Est GFR ( Amer) 66, Glucose 160 H, Calcium 8.1 L, Total Bilirubin 0.6, AST 34 D, ALT 37 D, Alkaline Phosphatase 60, Total Protein 7.4, Albumin 3.2 L, Globulin 4.2 H, Albumin/Globulin Ratio 0.8 L 09/11/18 05:30: WBC 10.1, RBC 4.15 L, Hgb 14.1, Hct 44.3, MCV 106.6 H, MCH 33.9 H, MCHC 31.8, RDW 14.5, Plt Count 178, MPV 7.8, Neut % (Auto) 88.1 H, Lymph % (Auto) 8.3 L, [place] % (Auto) 3.5, Eos % (Auto) 0.0 L, Baso % (Auto) 0.0 L, Neut # (Auto) 8.9 H, Lymph # (Auto) 0.8, [place] # (Auto) 0.4, Eos # (Auto) 0.0, Baso # (Auto) 0.0, Total Counted 100, Neutrophils % (Manual) 91 H, Lymphocytes % (Manual) 6 L, Monocytes % (Manual) 3, Platelet Estimate Normal, Macrocytosis 2+ 09/11/18 05:30: Sodium 139, Potassium 3.6, Chloride 104, Carbon Dioxide 24, Anion Gap 14.6, BUN 26 H D, Creatinine 1.00 D, Estimated Creat Clear 106, Estimated GFR 74, Est GFR ( Amer) 90 D, Glucose 149 H, Calcium 8.1 L I & O for Last 24 hours: Intake & Output 09/08/18 09/09/18 09/10/18 09/11/18 11:59 11:59 11:59 11:59 Intake Total 2227 / 2227 3027 / 3027 211 / 2112 Output Total 825 / 825 1225 / 1225 Balance 2227 / 2227 2202 / 2202 887 / 887 Weight 240 lb 236 lb 6 oz Microbiology Reports for the Last 24 Hours: Microbiology 09/09/18 11:10 Sputum - Expectorated Sputum Gram Stain - Final 09/09/18 11:10 Sputum - Expectorated Sputum Sputum Culture - Preliminary 09/08/18 09:14 Blood Blood Culture - Preliminary NO GROWTH AFTER 48 HOURS 09/08/18 09:14 Blood Blood Culture - Preliminary NO GROWTH AFTER 48 HOURS Assessment and Plan (1) Community acquired pneumonia Current visit: Yes Status: Acute Qualifiers: Laterality: unspecified laterality Qualified Code(s): J18.9 - Pneumonia, unspecified organism Category: Medical Code(s): J18.9 - Pneumonia, unspecified organism (2) Pulmonary hypertension Current visit: Yes Status: Chronic Category: Medical Code(s): I27.20 - Pu lmonary hypertension, unspecified (3) High risk medication use Current visit: Yes Status: Chronic Category: Medical Code(s): Z79.899 - Other long term care social worker (current) drug therapy (4) Dyspnea Current visit: Yes Status: Acute Qualifiers: Dyspnea type: unspecified Qualified Code(s): R06.00 - Dyspnea, unspecified Category: Medical Code(s): R06.00 - Dyspnea, unspecified (5) Hypoxia Current visit: Yes Status: Acute Category: Medical Code(s): R09.02 - Hypoxemia (6) Pulmonary fibrosis Current visit: Yes Status: Chronic Category: Medical Code(s): J84.10 - Pulmonary fibrosis, unspecified (7) Dizziness Current visit: No Status: Acute Category: Medical Code(s): R42 - Dizziness and giddiness - Assessment and plan all Dx Assessment and Plan for all problems:: Saw patient, agree with above note.
--- NOTE | 2018-09-12 08:24 | Progress Note ---
<Jazmin Nagy - Last Filed: 09/12/18 08:20> Internal Medicine - PN: Subj *Date: 09/12/18 *Time: 08:21 Interval history: Patient states he is feeling slightly better today. He still has episodes of shortness of breath. He does have some chest pain from coughing. He rested well last night and is tolerating the Vapotherm. He did eat most of his breakfast this morning. Exam Vital signs and Labs for Last 24 Hours: Temp Pulse Resp BP Pulse Ox 97.8 F 60 17 167/70 H 96 09/12/18 04:00 09/12/18 06:00 09/11/18 20:00 09/12/18 06:00 09/12/18 06:00 I & O for Last 24 hours: Intake & Output 09/09/18 09/10/18 09/11/18 09/12/18 11:59 11:59 11:59 11:59 Intake Total 2227 / 2227 3027 / 3027 2472 / 2472 862 / 862 Output Total 825 / 825 1600 / 1600 870 / 870 Balance 2227 / 2227 2202 / 2202 872 / 872 -8 / -8 Weight 236 lb 6 oz 240 lb 8 oz 242 lb 9 oz Microbiology Reports for the Last 24 Hours: Microbiology 09/09/18 11:10 Sputum - Expectorated Sputum Gram Stain - Final 09/09/18 11:10 Sputum - Expectorated Sputum Sputum Culture - Final Normal Respiratory Shelley - Constitutional no acute distress - *Routine Respiratory Exam Present: wheezes (bilaterally) - *Routine Cardiovascular Exam Present: RRR - *Routine Abdominal Exam Present: soft, normoactive bowel sounds. Absent: tenderness - *Routine Extremities Exam Absent: cyanosis, clubbing, edema Assessment and Plan (1) Community acquired pneumonia Current visit: Yes Status: Acute Qualifiers: Laterality: unspecified laterality Qualified Code(s): J18.9 - Pneumonia, unspecified organism Category: Medical Code(s): J18.9 - Pneumonia, unspecified organism (2) Pulmonary hypertension Current visit: Yes Status: Chronic Category: Medical Code(s): I27.20 - Pulmonary hypertension, unspecified (3) High risk medication use Current visit: Yes Status: Chronic Category: Medical Code(s): Z79.899 - Other jail (current) drug therapy (4) Dyspnea Current visit: Yes Status: Acute Qualifiers: Dyspnea type: unspecified Qualified Code(s): R06.00 - Dyspnea, unspecified Category: Medical Code(s): R06.00 - Dyspnea, unspecified (5) Hypoxia Current visit: Yes Status: Acute Category: Medical Code(s): R09.02 - Hypoxemia (6) Pulmonary fibrosis Current visit: Yes Status: Chronic Category: Medical Code(s): J84.10 - Pulmonary fibrosis, unspecified (7) Dizziness Current visit: No Status: Acute Category: Medical Code(s): R42 - Dizziness and giddiness - Assessment and plan all Dx Assessment and Plan for all problems:: Tolerating vapotheram and sats are above 90%. Will discuss further care with Dr. Toth. <Madi Toth - Last Filed: 09/12/18 08:42> Exam Vital signs and Labs for Last 24 Hours: Temp Pulse Resp BP Pulse Ox 97.8 F 60 17 167/70 H 96 09/12/18 04:00 09/12/18 06:00 09/11/18 20:00 09/12/18 06:00 09/12/18 06:00 I & O for Last 24 hours: Intake & Output 09/09/18 09/10/18 09/11/18 09/12/18 11:59 11:59 11:59 11:59 Intake Total 2227 / 2227 3027 / 3027 2472 / 2472 862 / 862 Output Total 825 / 825 1600 / 1600 870 / 870 Balance 2227 / 2227 2202 / 2202 872 / 872 -8 / -8 Weight 236 lb 6 oz 240 lb 8 oz 242 lb 9 oz Microbiology Reports for the Last 24 Hours: Microbiology 09/09/18 11:10 Sputum - Expectorated Sputum Gram Stain - Final 09/09/18 11:10 Sputum - Expectorated Sputum Sputum Culture - Final Normal Respiratory Shelley Assessment and Plan (1) Community acquired pneumonia Current visit: Yes Status: Acute Qualifiers: Laterality: unspecified laterality Qualified Code(s): J18.9 - Pneumonia, unspecified organism Category: Medical Code(s): J18.9 - Pneumonia, unspecified organism (2) Pulmonary hypertension Current visit: Yes Status: Chronic Category: Medical Code(s): I27.20 - Pulmonary hypertension, unspecified (3) High risk medication use Current visit: Yes Status: Chronic Category: Medical Code(s): Z79.899 - Other long term care administrator (current) drug therapy (4) Dyspnea Current visit: Yes Status: Acute Qualifiers: Dyspnea type: unspecified Qualified Code(s): R06.00 - Dyspnea, unspecified Category: Medical Code(s): R06.00 - Dyspnea, unspecified (5) Hypoxia Current visit: Yes Status: Acute Category: Medical Code(s): R09.02 - Hypoxemia (6) Pulmonary fibrosis Current visit: Yes Status: Chronic Category: Medical Code(s): J84.10 - Pulmonary fibrosis, unspecified (7) Dizziness Current visit: No Status: Acute Category: Medical Code(s): R42 - Dizziness and giddiness (8) GERD (gastroesophageal reflux disease) Current visit: Yes Status: Acute Category: Medical Code(s): K21.9 - Gastro-esophageal reflux disease without esophagitis (9) HTN (hypertension) Current visit: Yes Status: Acute Category: Medical Code(s): I10 - [place] l (primary) hypertension (10) Bradycardia Current visit: Yes Status: Acute Category: Medical Code(s): R00.1 - Bradycardia, unspecified (11) BMI 32.0-32.9,adult Current visit: Yes Status: Acute Category: Medical Code(s): Z68.32 - Body mass index (BMI) 32.0-32.9, adult (12) Non morbid obesity Current visit: Yes Status: Acute Category: Medical Code(s): E66.9 - Obesity, unspecified - Assessment and plan all Dx Assessment and Plan for all problems:: Saw patient, agree with above note. Decrease steroid dose today, OK to transfer out of step down.
--- NOTE | 2018-09-13 08:30 | Progress Note ---
<Jazmin Nagy - Last Filed: 09/13/18 08:29> Internal Medicine - PN: Subj *Date: 09/13/18 *Time: 08:29 Interval history: Patient states he is feeling slightly better today. He is short of breath with any exertion. He denies any pain today. He slept off and on. Exam Vital signs and Labs for Last 24 Hours: Temp Pulse Resp BP Pulse Ox 97.6 F 89 22 153/82 H 93 L 09/13/18 04:00 09/13/18 05:19 09/13/18 04:00 09/13/18 04:00 09/13/18 05:19 Laboratory Results - last 24 hr 09/10/18 12:55: Procalcitonin 0.04 I & O for Last 24 hours: Intake & Output 09/10/18 09/11/18 09/12/18 09/13/18 11:59 11:59 11:59 11:59 Intake Total 3027 / 3027 2472 / 2472 1222 / 1222 780 / 780 Output Total 825 / 825 1600 / 1600 1170 / 1170 330 / 330 Balance 2202 / 2202 872 / 872 52 / 52 450 / 450 Weight 240 lb 8 oz 242 lb 9 oz 263 lb 7 oz Microbiology Reports for the Last 24 Hours: Microbiology 09/09/18 11:10 Sputum - Expectorated Sputum Gram Stain - Final 09/09/18 11:10 Sputum - Expectorated Sputum Sputum Culture - Final Normal Respiratory Shelley - Constitutional no acute distress - *Routine Respiratory Exam Present: wheezes (improved from yesterday, better air movement) - *Routine Cardiovascular Exam Present: RRR - *Routine Abdominal Exam Present: soft, normoactive bowel sounds. Absent: tenderness - *Routine Extremities Exam Absent: cyanosis, clubbing, edema Assessment and Plan (1) Community acquired pneumonia Current visit: Yes Status: Acute Qualifiers: Laterality: unspecified laterality Qualified Code(s): J18.9 - Pneumonia, unspecified organism Category: Medical Code(s): J18.9 - Pneumonia, unspecified organism (2) Pulmonary hypertension Current visit: Yes Status: Chronic Category: Medical Code(s): I27.20 - Pulmonary hypertension, unspecified (3) High risk medication use Current visit: Yes Status: Chronic Category: Medical Code(s): Z79.899 - Ot her termite control service representative (current) drug therapy (4) Dyspnea Current visit: Yes Status: Acute Qualifiers: Dyspnea type: unspecified Qualified Code(s): R06.00 - Dyspnea, unspecified Category: Medical Code(s): R06.00 - Dyspnea, unspecified (5) Hypoxia Current visit: Yes Status: Acute Category: Medical Code(s): R09.02 - Hypoxemia (6) Pulmonary fibrosis Current visit: Yes Status: Chronic Category: Medical Code(s): J84.10 - Pulmonary fibrosis, unspecified (7) Dizziness Current visit: No Status: Acute Category: Medical Code(s): R42 - Dizziness and giddiness (8) GERD (gastroesophageal reflux disease) Current visit: Yes Status: Acute Category: Medical Code(s): K21.9 - Gastro-esophageal reflux disease without esophagitis (9) HTN (hypertension) Current visit: Yes Status: Acute Category: Medical Code(s): I10 - [place] (primary) hypertension (10) Bradycardia Current visit: Yes Status: Acute Category: Medical Code(s): R00.1 - Bradycardia, unspecified (11) BMI 32.0-32.9,adult Current visit: Yes Status: Acute Category: Medical Code(s): Z68.32 - Body mass index (BMI) 32.0-32.9, adult (12) Non morbid obesity Current visit: Yes Status: Acute Category: Medical Code(s): E66.9 - Obesity, unspecified - Assessment and plan all Dx Assessment and Plan for all problems:: Patient is still tolerating Vapotherm well. He got up to go to the bathroom and his sats dropped into the 70s today. His heart rate increased as well. Once he got back in the bed, his sats improved and his heart rate decreased. <Madi Toth - Last Filed: 09/13/18 08:41> Exam Vital signs and Labs for Last 24 Hours: Temp Pulse Resp BP Pulse Ox 98.6 F 67 24 157/80 H 91 L 09/13/18 08:00 09/13/18 08:00 09/13/18 08:00 09/13/18 08:00 09/13/18 08:00 Laboratory Results - last 24 hr 09/10/18 12:55: Procalcitonin 0.04 I & O for Last 24 hours: Intake & Output 09/10/18 09/11/18 09/12/18 09/13/18 11:59 11:59 11:59 11:59 Intake Total 3027 / 3027 2472 / 2472 1222 / 1222 1260 / 1260 Output Total 825 / 825 1600 / 1600 1170 / 1170 330 / 330 Balance 2202 / 2202 872 / 872 52 / 52 930 / 930 Weight 240 lb 8 oz 242 lb 9 oz 263 lb 7 oz Microbiology Reports for the Last 24 Hours: Microbiology 09/09/18 11:10 Sputum - Expectorated Sputum Gram Stain - Final 09/09/18 11:10 Sputum - Expectorated Sputum Sputum Culture - Final Normal Respiratory Shelley Assessment and Plan (1) Community acquired pneumonia Current visit: Yes Status: Acute Qualifiers: Laterality: unspecified laterality Qualified Code(s): J18.9 - Pneumonia, unspecified organism Category: Medical Code(s): J18.9 - Pneumonia, unspecified organism (2) Pulmonary hypertension Current visit: Yes Status: Chronic Category: Medical Code(s): I27.20 - Pulmonary hypertension, unspecified (3) High risk medication use Current visit: Yes Status: Chronic Category: Medical Code(s): Z79.899 - Other alf (current) drug therapy (4) Dyspnea Current visit: Yes Status: Acute Qualifiers: Dyspnea type: unspecified Qualified Code(s): R06.00 - Dyspnea, unspecified Category: Medical Code(s): R06.00 - Dyspnea, unspecified (5) Hypoxia Current visit: Yes Status: Acute Category: Medical Code(s): R09.02 - Hypoxemia (6) Pulmonary fibrosis Current visit: Yes Status: Chronic Category: Medical Code(s): J84.10 - Pulmonary fibrosis, unspecified (7) Dizziness Current visit: No Status: Acute Category: Medical Code(s): R42 - Dizziness and giddiness (8) GERD (gastroesophageal reflux disease) Current visit: Yes Status: Acute Category: Medical Code(s): K21.9 - Gastro-esophageal reflux disease without esophagitis (9) HTN (hypertension) Current visit: Yes Status: Acute Category: Medical Code(s): I10 - [place] (primary) hypertension (10) Bradycardia Current visit: Yes Status: Acute Category: Medical Code(s): R00.1 - Bradycardia, unspecified (11) BMI 32.0-32.9,adult Current visit: Yes Status: Acute Category: Medical Code(s): Z68.32 - Body mass index (BMI) 32.0-32.9, adult (12) Non morbid obesity Current visit: Yes Status: Acute Category: Medical Code(s): E66.9 - Obesity, unspecified - Assessment and plan all Dx Assessment and Plan for all problems:: Saw patient, agree with above note. His FiO2 is down to 50%, he feels better today, Metoprolol has been stopped and Irbesartan started, continue current treatment.
[2018-09-13 09:35] LABS: Basophils % 0.1 % (0.1-2.0); Eosinophils # 0.1 K/mm3 (0.0-0.4); Eosinophils % 0.5 % (0.1-12.0); Hematocrit 45.2 % (42.0-52.0); Hemoglobin 14.7 g/dL (14.1-18.0); Lymphocytes # 0.7 K/mm3 (0.7-4.5); Lymphocytes % 7.5 % (10-50); Mean Corpuscular HGB Conc 32.4 g/dL (31.8-35.4); Mean Corpuscular Hemoglobin 34.4 pg (27.0-31.2); Mean Corpuscular Volume 106.1 fl (80-94); Mean Platelet Volume 7.9 fl (7.4-10.4); Monocytes # 0.5 K/mm3 (0.1-1.0); Monocytes % 5.7 % (1.7-9.3); Neutrophils # 7.9 K/mm3 (1.8-7.8); Neutrophils % 86.2 % (37.0-80.0); Platelet Count 190 K/mm3 (142-424); Red Blood Count 4.26 M/mm3 (4.60-6.20); Red Cell Distribution Width 13.8 % (11.5-17.5); White Blood Count 9.2 K/mm3 (4.8-10.8)
[2018-09-13 09:45] LABS: Anion Gap 13.2 mEq/L (5-15); Calcium 7.7 mg/dL (8.5-10.1); Potassium 3.2 mmoL/L (3.5-5.1)
[2018-09-13 10:46] LABS: Lymphocytes % 9 % (10-50); Macrocytosis 2+; Monocytes % 6 % (2-9); Neutrophils % 85 % (42-76); Total Cells Counted 100
--- NOTE | 2018-09-14 08:55 | Progress Note ---
Internal Medicine - PN: Subj *Date: 09/14/18 *Time: 08:50 Interval history: Chart reviewed. He seems to be doing better at this point. Rested OK last night. Has not been using the Incentive spirometry. Exam Vital signs and Labs for Last 24 Hours: Temp Pulse Resp BP Pulse Ox 97.8 F 77 22 147/80 H 91 L 09/14/18 08:00 09/14/18 08:00 09/14/18 08:00 09/14/18 08:00 09/14/18 08:00 Laboratory Results - last 24 hr 09/13/18 09:20: WBC 9.2, RBC 4.26 L, Hgb 14.7, Hct 45.2, MCV 106.1 H, MCH 34.4 H , MCHC 32.4, RDW 13.8, Plt Count 190, MPV 7.9, Neut % (Auto) 86.2 H, Lymph % (Auto) 7.5 L, [place] % (Auto) 5.7, Eos % (Auto) 0.5, Baso % (Auto) 0.1, Neut # (Auto) 7.9 H, Lymph # (Auto) 0.7, [place] # (Auto) 0.5, Eos # (Auto) 0.1, Baso # (Auto) 0.0, Total Counted 100, Neutrophils % (Manual) 85 H, Lymphocytes % (Manual) 9 L, Monocytes % (Manual) 6, Platelet Estimate Normal, Macrocytosis 2+ 09/13/18 09:20: Sodium 139, Potassium 3.2 L, Chloride 104, Carbon Dioxide 25, Anion Gap 13.2, BUN 23 H, Creatinine 1.07, Estimated Creat Clear 110, Estimated GFR 69, Est GFR ( Amer) 83, Glucose 201 H, Calcium 7.7 L I & O for Last 24 hours: Intake & Output 09/11/18 09/12/18 09/13/18 09/14/18 11:59 11:59 11:59 11:59 Intake Total 2472 / 2472 1222 / 1222 1600 / 1600 1452 / 1452 Output Total 1600 / 1600 1170 / 1170 630 / 630 650 / 650 Balance 872 / 872 52 / 52 970 / 970 802 / 802 Weight 240 lb 8 oz 242 lb 9 oz 263 lb 7 oz 248 lb Microbiology Reports for the Last 24 Hours: Microbiology 09/08/18 09:14 Blood Blood Culture - Final NO GROWTH AFTER 5 DAYS 09/08/18 09:14 Blood Blood Culture - Final NO GROWTH AFTER 5 DAYS - Constitutional no acute distress Comments: VapoTherm in place. - *Routine Respiratory Exam Present: decreased breath sounds Comments: Bibasilar fibrotic rales. - *Routine Cardiovascular Exam Present: RRR - *Routine Extremities Exam Absent: edema Assessment and Plan (1) Community acquired pneumonia Current visit: Yes Status: Acute Qualifiers: Laterality: unspecified laterality Qualified Code(s): J18.9 - Pneumonia, unspecified organism Category: Medical Code(s): J18.9 - Pneumonia, unspecified organism (2) Pulmonary hypertension Current visit: Yes Status: Chronic Category: Medical Code(s): I27.20 - Pu lmonary hypertension, unspecified (3) High risk medication use Current visit: Yes Status: Chronic Category: Medical Code(s): Z79.899 - Other nursing home (current) drug therapy (4) Dyspnea Current visit: Yes Status: Acute Qualifiers: Dyspnea type: unspecified Qualified Code(s): R06.00 - Dyspnea, unspecified Category: Medical Code(s): R06.00 - Dyspnea, unspecified (5) Hypoxia Current visit: Yes Status: Acute Category: Medical Code(s): R09.02 - Hypoxemia (6) Pulmonary fibrosis Current visit: Yes Status: Chronic Category: Medical Code(s): J84.10 - Pulmonary fibrosis, unspecified (7) Dizziness Current visit: No Status: Acute Category: Medical Code(s): R42 - Dizziness and giddiness (8) GERD (gastroesophageal reflux disease) Current visit: Yes Status: Acute Category: Medical Code(s): K21.9 - Gastro-esophageal reflux disease without esophagitis (9) HTN (hypertension) Current visit: Yes Status: Acute Category: Medical Code(s): I10 - Essential (primary) hypertension (10) Bradycardia Current visit: Yes Status: Acute Category: Medical Code(s): R00.1 - Bradycardia, unspecified (11) BMI 32.0-32.9,adult Current visit: Yes Status: Acute Category: Medical Code(s): Z68.32 - Body mass index (BMI) 32.0-32.9, adult (12) Non morbid obesity Current visit: Yes Status: Acute Category: Medical Code(s): E66.9 - Obesit y, unspecified - Assessment and plan all Dx Assessment and Plan for all problems:: Continue current treatment. Consider sildenifil, consider Theophylline.
--- NOTE | 2018-09-15 12:06 | Progress Note ---
Internal Medicine - PN: Subj *Date: 09/15/18 *Time: 12:05 Exam Vital signs and Labs for Last 24 Hours: Temp Pulse Resp BP Pulse Ox 98.5 F 78 23 131/75 93 L 09/15/18 11:54 09/15/18 11:54 09/15/18 11:54 09/15/18 11:54 09/15/18 11:54 I & O for Last 24 hours: Intake & Output 09/12/18 09/13/18 09/14/18 09/15/18 23:59 23:59 23:59 23:59 Intake Total 1160 / 1160 1300 / 1300 1512 / 1512 600 / 600 Output Total 1000 / 1000 950 / 950 800 / 800 1100 / 1100 Balance 160 / 160 350 / 350 712 / 712 -500 / -500 Weight 110.024 kg 119.493 kg 112.491 kg Assessment and Plan (1) Community acquired pneumonia Current visit: Yes Status: Acute Qualifiers: Laterality: unspecified laterality Qualified Code(s): J18.9 - Pneumonia, unspecified organism Category: Medical Code(s): J18.9 - Pneumonia, unspecified organism (2) Pulmonary hypertension Current visit: Yes Status: Chronic Category: Medical Code(s): I27.20 - Pulmonary hypertension, unspecified (3) High risk medication use Current visit: Yes Status: Chronic Category: Medical Code(s): Z79.899 - Other prison (current) drug therapy (4) Dyspnea Current visit: Yes Status: Acute Qualifiers: Dyspnea type: unspecified Qualified Code(s): R06.00 - Dyspnea, unspecified Category: Medical Code(s): R06.00 - Dyspnea, unspecified (5) Hypoxia Current visit: Yes Status: Acute Category: Medical Code(s): R09.02 - Hypoxemia (6) Pulmonary fibrosis Current visit: Yes Status: Chronic Category: Medical Code(s): J84.10 - Pulmonary fibrosis, unspecified (7) Dizziness Current visit: No Status: Acute Category: Medical Code(s): R42 - Dizziness and giddiness (8) GERD (gastroesophageal reflux disease) Current visit: Yes Status: Acute Category: Medical Code(s): K21.9 - Gastro-esophageal reflux disease without esophagitis (9) HTN (hypertension) Current visit: Yes Status: Acute Category: Medical Code(s): I10 - Essential (primary) hypertension (10) Bradycardia Current visit: Yes Status: Acute Category: Medical Code(s): R00.1 - Bradycardia, unspecified (11) BMI 32.0-32.9,adult Current visit: Yes Status: Acute Category: Medical Code(s): Z68.32 - Body mass index (BMI) 32.0-32.9, adult (12) Non morbid obesity Current visit: Yes Status: Acute Category: Medical Code(s): E66.9 - Obesity, unspecified The patient's infection will respond to the chosen ABx?: Yes Is the patient receiving the right drug, dose, and route?: Yes Could a more targeted ABx be ordered?: No
--- NOTE | 2018-09-15 15:08 | Progress Note ---
Internal Medicine - PN: Subj *Date: 09/15/18 *Time: 15:05 Exam Vital signs and Labs for Last 24 Hours: Temp Pulse Resp BP Pulse Ox 98.5 F 88 23 131/75 91 L 09/15/18 11:54 09/15/18 13:04 09/15/18 11:54 09/15/18 11:54 09/15/18 13:04 I & O for Last 24 hours: Intake & Output 09/13/18 09/14/18 09/15/18 09/16/18 11:59 11:59 11:59 11:59 Intake Total 1600 / 1600 1452 / 1452 1140 / 1140 480 / 480 Output Total 630 / 630 650 / 650 1900 / 1900 Balance 970 / 970 802 / 802 -760 / -760 480 / 480 Weight 263 lb 7 oz 248 lb - Constitutional no acute distress - *Routine HEENT Exam Head: Present: normocephalic Eye: Present: PERRL ENT: Present: mucous membranes moist - Routine Chest/Breast/Axilla Exam Chest wall: Absent: tenderness - *Routine Respiratory Exam Present: decreased breath sounds Comments: fibrotic rales. - *Routine Cardiovascular Exam Present: RRR Comments: 85 - *Routine Abdominal Exam Present: soft. Absent: tenderness - *Routine Extremities Exam Present: edema (minimal) - *Routine Neurological Exam Present: alert, oriented X3 Assessment and Plan (1) Community acquired pneumonia Current visit: Yes Status: Acute Qualifiers: Laterality: unspecified laterality Qualified Code(s): J18.9 - Pneumonia, unspecified organism Category: Medical Code(s): J18.9 - Pneumonia, unspecified organism (2) Pulmonary hypertension Current visit: Yes Status: Chronic Category: Medical Code(s): I27.20 - Pulmonary hypertension, unspecified (3) High risk medication use Current visit: Yes Status: Chronic Category: Medical Code(s): Z79.899 - Other intermediate school teacher (current) drug therapy (4) Dyspnea Current visit: Yes Status: Acute Qualifiers: Dyspnea type: unspecified Qualified Code(s): R06.00 - Dyspnea, unspecified Category: Medical Code(s): R06.00 - Dyspnea, unspecified (5) Hypoxia Current visit: Yes Status: Acute Category: Medical Code(s): R09.02 - Hypoxemia (6) Pulmonary fibrosis Current visit: Yes Status: Chronic Category: Medical Code(s): J84.10 - Pulmonary fibrosis, unspecified (7) Dizziness Current visit: No Status: Acute Category: Medical Code(s): R42 - Dizziness and giddiness (8) GERD (gastroesophageal reflux disease) Current visit: Yes Status: Acute Category: Medical Code(s): K21.9 - Gastro-esophageal reflux disease without esophagitis (9) HTN (hypertension) Current visit: Yes Status: Acute Category: Medical Code(s): I10 - Essential (primary) hypertension (10) Bradycardia Current visit: Yes Status: Acute Category: Medical Code(s): R00.1 - Bradycardia, unspecified (11) BMI 32.0-32.9,adult Current visit: Yes Status: Acute Category: Medical Code(s): Z68.32 - Body mass index (BMI) 32.0-32.9, adult (12) Non morbid obesity Current visit: Yes Status: Acute Category: Medical Code(s): E66.9 - Obesity, unspecified - Assessment and plan all Dx Assessment and Plan for all problems:: will discuss tomorrow with Dr. Medina. Disposition will be an issue. Recheck labs,
[2018-09-15 15:45] LABS: Anion Gap 12.2 mEq/L (5-15); Potassium 4.2 mmoL/L (3.5-5.1)
[2018-09-15 15:50] LABS: Basophils % 0.2 % (0.1-2.0); Eosinophils % 0.4 % (0.1-12.0); Hematocrit 49.1 % (42.0-52.0); Hemoglobin 15.4 g/dL (14.1-18.0); Lymphocytes # 0.5 K/mm3 (0.7-4.5); Mean Corpuscular HGB Conc 31.3 g/dL (31.8-35.4); Mean Corpuscular Hemoglobin 33.5 pg (27.0-31.2); Mean Corpuscular Volume 106.9 fl (80-94); Mean Platelet Volume 9.2 fl (7.4-10.4); Monocytes # 0.7 K/mm3 (0.1-1.0); Monocytes % 7.4 % (1.7-9.3); Neutrophils % 87.1 % (37.0-80.0); Platelet Count 198 K/mm3 (142-424); Red Blood Count 4.59 M/mm3 (4.60-6.20); Red Cell Distribution Width 13.4 % (11.5-17.5); White Blood Count 9.2 K/mm3 (4.8-10.8)
[2018-09-15 16:09] LABS: Lymphocytes % 9 % (10-50); Monocytes % 3 % (2-9); Neutrophils % 87 % (42-76); Total Cells Counted 100
[2018-09-15 16:10] LABS: Macrocytosis 2+
--- NOTE | 2018-09-16 08:42 | Progress Note ---
Internal Medicine - PN: Subj *Date: 09/16/18 *Time: 08:39 Interval history: Patient is discouraged. He feels that he is making improvement but it is slow. He remains short of breath with any activity and continually denies chest pain. He is not sleeping well due to the fact that he cannot sleep on his back. He is short of breath with any activity. He only gets up to the bedside commode. He is voiding without problems and bowels are moving. He feels that he has been eating better. Exam Vital signs and Labs for Last 24 Hours: Temp Pulse Resp BP Pulse Ox 97.8 F 88 22 116/74 89 L 09/16/18 07:59 09/16/18 07:59 09/16/18 07:59 09/16/18 07:59 09/16/18 07:59 Laboratory Results - last 24 hr 09/15/18 15:20: WBC 9.2, RBC 4.59 L, Hgb 15.4, Hct 49.1, MCV 106.9 H, MCH 33.5 H , MCHC 31.3 L, RDW 13.4, Plt Count 198, MPV 9.2, Neut % (Auto) 87.1 H, Lymph % (Auto) 5.0 L, [place] % (Auto) 7.4, Eos % (Auto) 0.4, Baso % (Auto) 0.2, Neut # (Auto) 8.0 H, Lymph # (Auto) 0.5 L, [place] # (Auto) 0.7, Eos # (Auto) 0.0, Baso # (Auto) 0.0, Total Counted 100, Neutrophils % (Manual) 87 H, Lymphocytes % (Manual) 9 L, Atypical Lymphs % 1.0, Monocytes % (Manual) 3, Platelet Estimate Normal, Macrocytosis 2+ 09/15/18 15:20: Sodium 135 L, Potassium 4.2 D, Chloride 103, Carbon Dioxide 24, Anion Gap 12.2, BUN 22 H, Creatinine 0.97, Estimated Creat Clear 111, Estimated GFR 77, Est GFR ( Amer) 93, Glucose 184 H, Calcium 8.0 L I & O for Last 24 hours: Intake & Output 09/13/18 09/14/18 09/15/18 09/16/18 11:59 11:59 11:59 11:59 Intake Total 1600 / 1600 1452 / 1452 1140 / 1140 1282 / 1282 Output Total 630 / 630 650 / 650 1900 / 1900 780 / 780 Balance 970 / 970 802 / 802 -760 / -760 502 / 502 Weight 263 lb 7 oz 248 lb 251 lb 7 oz - Constitutional no acute distress Comments: Sitting up in the bed working on crossword puzzles. Appears comfortable. - *Routine Respiratory Exam Present: CTA bilaterally (Anteriorly and posteriorly. No wheezing.) - *Routine Cardiovascular Exam Present: RRR - *Routine Abdominal Exam Present: soft, normoactive bowel sounds. Absent: tenderness - *Routine Extremities Exam Absent: edema, calf tenderness - *Routine Neurological Exam Present: alert, oriented X3 Assessment and Plan (1) Community acquired pneumonia Current visit: Yes Status: Acute Qualifiers: Laterality: unspecified laterality Qualified Code(s): J18.9 - Pneumonia, unspecified organism Category: Medical Code(s): J18.9 - Pneumonia, unspecified organism (2) Pulmonary hypertension Current visit: Yes Status: Chronic Category: Medical Code(s): I27.20 - Pulmonary hypertension, unspecified (3) High risk medication use Current visit: Yes Status: Chronic Category: Medical Code(s): Z79.899 - Other [facility] (current) drug therapy (4) Dyspnea Current visit: Yes Status: Acute Qualifiers: Dyspnea type: unspecified Qualified Code(s): R06.00 - Dyspnea, unspecified Category: Medical Code(s): R06.00 - Dyspnea, unspecified (5) Hypoxia Current visit: Yes Status: Acute Category: Medical Code(s): R09.02 - Hypoxemia (6) Pulmonary fibrosis Current visit: Yes Status: Chronic Category: Medical Code(s): J84.10 - Pulmonary fibrosis, unspecified (7) Dizziness Current visit: No Status: Acute Category: Medical Code(s): R42 - Dizziness and giddiness (8) GERD (gastroesophageal reflux disease) Current visit: Yes Status: Acute Category: Medical Code(s): K21.9 - Gastro-esophageal reflux disease without esophagitis (9) HTN (hypertension) Current visit: Yes Status: Acute Category: Medical Code(s): I10 - Essential (primary) hypertension (10) Bradycardia Current visit: Yes Status: Acute Category: Medical Code(s): R00.1 - Bradycardia, unspecified (11) BMI 32.0-32.9,adult Current visit: Yes Status: Acute Category: Medical Code(s): Z68.32 - Body mass index (BMI) 32.0-32.9, adult (12) Non morbid obesity Current visit: Yes Status: Acute Category: Medical Code(s): E66.9 - Obesity, unspecified - Assessment and plan all Dx Assessment and Plan for all problems:: Patient has been started on theophylline. We will decrease steroids. Will consult physical therapy. Discussed disposition with care management.
--- NOTE | 2018-09-17 08:33 | Progress Note ---
Internal Medicine - PN: Subj *Date: 09/17/18 *Time: 08:30 Interval history: Patient is miserable. He states that he does not sleep more than 2 hours a night. Someone is always waking him up taking blood pressure and checking his oxygen. He has been leaning down to 35% on the Vapotherm. He has been up and out of bed with physical therapy yesterday. He said his O2 stats dropped in the 70s during this. He denies dizziness. He had no problems with getting up and walking. See physical therapy note. He denies chest pain and feels that his breathing is better. Exam Vital signs and Labs for Last 24 Hours: Temp Pulse Resp BP Pulse Ox 98.2 F 68 23 150/94 H 90 L 09/17/18 04:00 09/17/18 06:02 09/17/18 04:00 09/17/18 04:00 09/17/18 04:00 I & O for Last 24 hours: Intake & Output 09/14/18 09/15/18 09/16/18 09/17/18 11:59 11:59 11:59 11:59 Intake Total 1452 / 1452 1140 / 1140 1282 / 1282 1330 / 1330 Output Total 650 / 650 1900 / 1900 980 / 980 1075 / 1075 Balance 802 / 802 -760 / -760 302 / 302 255 / 255 Weight 248 lb 251 lb 7 oz 253 lb 1 oz - Constitutional no acute distress Comments: Appears comfortable sitting up in the bed and working crossword puzzles. - *Routine Respiratory Exam Present: CTA bilaterally Comments: Anteriorly and posteriorly. No wheezing - *Routine Cardiovascular Exam Present: RRR Comments: Normal sinus rhythm on the monitor - *Routine Abdominal Exam Present: soft, normoactive bowel sounds. Absent: tenderness - *Routine Extremities Exam Absent: edema, calf tenderness - *Routine Neurological Exam Present: alert, oriented X3 Assessment and Plan (1) Community acquired pneumonia Current visit: Yes Status: Acute Qualifiers: Laterality: unspecified laterality Qualified Code(s): J18.9 - Pneumonia, unspecified organism Category: Medical Code(s): J18.9 - Pneumonia, unspecified organism (2) Pulmonary hypertension Current visit: Yes Status: Chronic Category: Medical Code(s): I27.20 - Pulmonary hypertension, unspecified (3) High risk medication use Current visit: Yes Status: Chronic Category: Medical Code(s): Z79.899 - Other alf (current) drug therapy (4) Dyspnea Current visit: Yes Status: Acute Qualifiers: Dyspnea type: unspecified Qualified Code(s): R06.00 - Dyspnea, unspecified Category: Medical Code(s): R06.00 - Dyspnea, unspecified (5) Hypoxia Current visit: Yes Status: Acute Category: Medical Code(s): R09.02 - Hypoxemia (6) Pulmonary fibrosis Current visit: Yes Status: Chronic Category: Medical Code(s): J84.10 - Pulmonary fibrosis, unspecified (7) Dizziness Current visit: No Status: Acute Category: Medical Code(s): R42 - Dizziness and giddiness (8) GERD (gastroesophageal reflux disease) Current visit: Yes Status: Acute Category: Medical Code(s): K21.9 - Gastro-esophageal reflux disease without esophagitis (9) HTN (hypertension) Current visit: Yes Status: Acute Category: Medical Code(s): I10 - Essential (primary) hypertension (10) Bradycardia Current visit: Yes Status: Acute Category: Medical Code(s): R00.1 - Bradycardia, unspecified (11) BMI 32.0-32.9,adult Current visit: Yes Status: Acute Category: Medical Code(s): Z68.32 - Body mass index (BMI) 32.0-32.9, adult (12) Non morbid obesity Current visit: Yes Status: Acute Category: Medical Code(s): E66.9 - Obesity, unspecified - Assessment and plan all Dx Assessment and Plan for all problems:: Discussed with his nurse the planning for his nighttime sleeping with coordination with respiratory. Continue to wean oxygen and on to regular nasal cannula. Dr. Medina consulted again for today. Care management note reviewed.
--- NOTE | 2018-09-18 08:16 | Progress Note ---
Internal Medicine - PN: Subj *Date: 09/18/18 *Time: 08:14 Interval history: Patient states he feels about the same today. He still has shortness of breath with any exertion and his sats do drop when he is out of bed. He is currently off the Vapotherm. He denies any pain and states he slept well and ate a good breakfast. He wants to go home today. Exam Vital signs and Labs for Last 24 Hours: Temp Pulse Resp BP Pulse Ox 97.7 F 104 H 24 141/87 H 90 L 09/18/18 07:48 09/18/18 07:48 09/18/18 07:48 09/18/18 07:48 09/18/18 07:48 I & O for Last 24 hours: Intake & Output 09/15/18 09/16/18 09/17/18 09/18/18 11:59 11:59 11:59 11:59 Intake Total 1140 / 1140 1282 / 1282 1810 / 1810 1760 / 1760 Output Total 1900 / 1900 980 / 980 1075 / 1075 3300 / 3300 Balance -760 / -760 302 / 302 735 / 735 -1540 / -1540 Weight 251 lb 7 oz 253 lb 1 oz 249 lb 2 oz - Constitutional no acute distress - *Routine Respiratory Exam Present: decreased breath sounds, CTA bilaterally - *Routine Cardiovascular Exam Present: RRR - *Routine Abdominal Exam Present: soft, normoactive bowel sounds. Absent: tenderness - *Routine Extremities Exam Absent: cyanosis, clubbing, edema Assessment and Plan (1) Community acquired pneumonia Current visit: Yes Status: Acute Qualifiers: Laterality: unspecified laterality Qualified Code(s): J18.9 - Pneumonia, unspecified organism Category: Medical Code(s): J18.9 - Pneumonia, unspecified organism (2) Pulmonary hypertension Current visit: Yes Status: Chronic Category: Medical Code(s): I27.20 - Pulmonary hypertension, unspecified (3) High risk medication use Current visit: Yes Status: Chronic Category: Medical Code(s): Z79.899 - Other terminal superintendent (current) drug therapy (4) Dyspnea Current visit: Yes Status: Acute Qualifiers: Dyspnea type: unspecified Qualified Code(s): R06.00 - Dyspnea, unspecified Category: Medical Code(s): R06.00 - Dyspnea, unspecified (5) Hypoxia Current visit: Yes Status: Acute Category: Medical Code(s): R09.02 - Hypoxemia (6) Pulmonary fibrosis Current visit: Yes Status: Chronic Category: Medical Code(s): J84.10 - Pulmonary fibrosis, unspecified (7) Dizziness Current visit: No Status: Acute Category: Medical Code(s): R42 - Dizziness and giddiness (8) GERD (gastroesophageal reflux disease) Current visit: Yes Status: Acute Category: Medical Code(s): K21.9 - Gastr o-esophageal reflux disease without esophagitis (9) HTN (hypertension) Current visit: Yes Status: Acute Category: Medical Code(s): I10 - Essential (primary) hypertension (10) Bradycardia Current visit: Yes Status: Acute Category: Medical Code(s): R00.1 - Bradycardia, unspecified (11) BMI 32.0-32.9,adult Current visit: Yes Status: Acute Category: Medical Code(s): Z68.32 - Body mass index (BMI) 32.0-32.9, adult (12) Non morbid obesity Current visit: Yes Status: Acute Category: Medical Code(s): E66.9 - Obe sity, unspecified - Assessment and plan all Dx Assessment and Plan for all problems:: Will discuss further care with Dr. Saez.
--- NOTE | 2018-09-20 14:00 | Discharge Summary ---
General - General Admission date:: 09/08/18 Discharge date: 09/18/18 HPI HPI: Mr. Aviles is a 68-year-old male with a history of idiopathic pulmonary fibrosis/pulmonary emphysema, pulmonary hypertension due to the interstitial lung disease, and high risk medication use. He presented to [facility] emergency room yesterday after progressive shortness of breath over the past 4 to 5 days. Describes a dry nonproductive cough. He has had difficulty ambulating very short distances. He denies fever and chest pain. Patient is followed by visitor services information assistant Dr. Medina in [place]. Pt is scheduled for a stress test next Sunday. He uses home O2 at night. He is also on the drug Esbriet which has caused diarrhea. He has had minimal p.o. intake for the last 2-3 days. Hospital Course Hospital Course: The patient's CXR showed cardiomegaly with pulmonary fibrosis. His CTA showed no evidence of pulmonary embolus, aortic aneurysm, or aortic dissection. It did show diffuse pulmonary fibrosis with a superimposed ground glass density in the left upper lobe, right apex, and right lower lobe which could be due to edema or pneumonitis. He was started on rocephin and Zithromax, duo nebs, and steroids. On 09/10/18, Suzie Lowry walked into the patient's room and found him extremely SOB after walking to the with help. His O2 sat was low at 43% and increased to 70% with O2 at 4 LPM. He was changed to a nathan mask at 50% with an increase in sats to 89%. He was given IV lasix 40mg. He denied CP but did feel like he could pass out. A stat EKG, ABG's, TI, and CXR were ordered. His TI was normal, pH was 7.47, his pCO2 was 25.0, and his PO2 was 45.6, his CXR showed nothing acute. He was moved to step down. Dr. Medina was consulted. He felt the patient had idiopathic pulmonary fibrosis. He also felt he was suffering from an atypical pneumonia as his family members had been sick. He thought this may be viral and ordered a viral PCR panel. He recommended continuing Zithromax and agreed with corticosteroids for the acute exacerbation of his idiopathic pulmonary fibrosis. He also ordered a bubble echo to look for a patent foramen ovale with a right to left shunt due to his profound hypoxemia. The echo showed biatrial enlargement with an EF of 55%. There was a moderately enlarged right ventricle and mild mitral and tricuspid regurgitation. The saline contrast study failed to identify an intracardiac shunt. The patient was also switched to Vapotherm which seemed to improve his sats and shortness of breath. His PCR respiratory panel was negative. His white blood cell count normalized as did his liver function studies. He was given an additional dose of Lasix. His steroids were tapered and he was stable to be moved out of stepdown. He still became very dyspneic and his sats dropped with any activity. He was able to be weaned off the Vapotherm. His metoprolol was discontinued and he was started on irbesartan. He had a repeat chest x-ray showing a density throughout the left lung base mainly reflecting chronic fibrotic changes. There was a questionable additional infiltrate at the left mid lung and possibly the medial left lung base. He was started on theophylline and his steroids were decreased. Dr. saez discussed a pulmonary hospital with the patient as well as possible lung transplant. The patient declined both of these. He was seen by physical therapy who felt he can be discharged home once his oxygen was stable. The patient was able to maintain his sats in the 90% range on nasal cannula. His lungs did sound somewhat clear with bilateral fibrotic rales. He was anxious to be discharged home. He was stable to be discharged and will follow up with Dr. Saez and with Dr. Medina. He was on antibiotics for a week during his hospital stay, therefore he was not discharged home on any antibiotics. He was on IV Solu-Medrol during his admission, therefore he was continued on prednisone 20 mg a day at discharge. Objective Vital signs: Temp Pulse Resp BP Pulse Ox 97.7 F 63 24 141/87 H 91 L 09/18/18 07:48 09/18/18 09:22 09/18/18 07:48 09/18/18 07:48 09/18/18 09:22 Narrative: - Constitutional no acute distress - *Routine HEENT Exam Head: Present: normocephalic, atraumatic Eye: Present: PERRL. Absent: conjunctival icterus, scleral injection ENT: Present: mucous membranes moist, oropharynx clear - *Routine Neck Exam Present: supple, full ROM. Absent: carotid bruit, lymphadenopathy, thyromegaly - *Routine Respiratory Exam Comments: Fibrotic crackles posteriorly and bases - *Routine Cardiovascular Exam Present: RRR Comments: Monitor showing sinus rhythm in the 90s - *Routine Abdominal Exam Present: soft, normoactive bowel sounds. Absent: tenderness, distended, guarding - *Routine Extremities Exam Absent: edema, calf tenderness - *Routine Neurological Exam Present: alert, oriented X3 DS: Diagnosis - Discharge Diagnosis (1) Community acquired pneumonia Status: Acute (2) Pulmonary hypertension Status: Chronic (3) High risk medication use Status: Chronic (4) Dyspnea Status: Acute (5) Hypoxia Status: Acute (6) Pulmonary fibrosis Status: Chronic (7) Dizziness Status: Acute (8) GERD (gastroesophageal reflux disease) Status: Acute (9) HTN (hypertension) Status: Acute (10) Bradycardia Status: Acute (11) BMI 32.0-32.9,adult Status: Acute (12) Non morbid obesity Status: Acute Discharge Plan - Patient Discharge Instructions ACTIVITY: Limited activity DIET: continue same diet Patient Instructions: Pneumonia-Adult, Idiopathic Pulmonary Fibrosis, DI for Chronic Obstructive Pulmonary Disease, DI for Pneumonia -- Adult, Theophylline, Ceftriaxone Injection, Methylprednisolone Injection - Follow up Plan Follow up with: Pilar Saez MD [Primary Care Provider] - 1 week Unknown provider or service follow up:: 09/18/18 08:43 Also needs follow-up with Dr. Medina, pulmonology Disposition: Home, Self-Longterm Medications: Home Medications Medication Instructions Recorded Confirmed Type aspirin 81 mg tablet,delayed 81 mg PO DAILY 09/04/18 09/08/18 History release coenzyme Q10 100 mg capsule 100 mg PO DAILY 09/04/18 09/08/18 History esomeprazole magnesium 20 mg 20 mg PO DAILYP PRN 09/04/18 09/08/18 History capsule,delayed release hydrochlorothiazide 25 mg tablet 25 mg PO DAILY 09/04/18 09/08/18 History pirfenidone 267 mg capsule 267 mg PO TID 09/04/18 09/08/18 History pravastatin 40 mg tablet 40 mg PO DAILY 09/04/18 09/08/18 History vitamin A-vitamin C-vit E-min 1 cap PO DAILY cap 09/04/18 09/08/18 History capsule Losartan Potassium [Cozaar] 50 mg PO DAILY 09/08/18 09/08/18 History Ipratropium/Albuterol Sulfate 3 ml IH Q4H ampul.neb 09/18/18 Rx [Duoneb 3mL neb] Theophylline Anhydrous [Martin-Dur 300 mg PO DAILY #30 tab.er.12h 09/18/18 Rx 300mg tablet] predniSONE [Prednisone 20mg 20 mg PO DAILY #30 tab 09/18/18 Rx Tab] Prescriptions/Medication Reconciliation: New Theophylline Anhydrous [Martin-Dur 300mg tablet] 300 mg PO DAILY #30 tab.er.12h Ipratropium/Albuterol Sulfate [Duoneb 3mL neb] 3 ml IH Q4H ampul.neb predniSONE [Prednisone 20mg Tab] 20 mg PO DAILY #30 tab Continue pirfenidone 267 mg capsule 267 mg PO TID aspirin 81 mg tablet,delayed release 81 mg PO DAILY coenzyme Q10 100 mg capsule 100 mg PO DAILY pravastatin 40 mg tablet 40 mg PO DAILY esomeprazole magnesium 20 mg capsule,delayed release 20 mg PO DAILYP PRN PRN Reason: GERD vitamin A-vitamin C-vit E-min capsule 1 cap PO DAILY cap hydrochlorothiazide 25 mg tablet 25 mg PO DAILY Losartan Potassium [Cozaar] 50 mg PO DAILY Discontinued metoprolol tartrate 50 mg tablet 50 mg PO BID
== END 2018-09-18 10:31 | disposition home or self-care (01) ==
LOC: ER 08:59 → 2ND 12:08 → ICU 09-10 08:14 → 2ND 09-10 16:17
PROVIDERS: ADMIT Family Medicine; ATTEND Family Medicine
CPT/HCPCS: 36415; 71010; 71045; 71275; 80048; 80053; 82550; 82553; 82803; 83605; 83735; 83880; 84145; 84484; 85007; 85025; 85378; 87040; 87070; 87205; 87486; 87581; 87633; 87798; 93005; 93306; 93308; 94640; 94760; 94761; 96374; 97161; 99285; J0456; Q9967

== ENCOUNTER → 2018-10-15 10:17 | Outpatient (POV) | payer SELFPAY | PROVIDERS: Visit Provider Internal Medicine | DX: Z00.00 Encounter for general adult medical examination without abnormal findings (principal) ==

== ENCOUNTER 2018-11-02 16:59 | Inpatient (IN) | payer OTHER, MEDICARE, SELFPAY ==
[2018-11-02] VITALS (14 sets, daily range): BP systolic 110–134; BP diastolic 69–80; PULSE 77–135; RESP 18–44; TEMP 36.4–36.5; O2SAT 65–98; BMI 33.2; BMI 31.1
--- NOTE | 2018-11-02 17:03 | HMH.EDSOB ---
ED Disposition Clinical Impression: Pulmonary fibrosis, LLL pneumonia, Respiratory failure, Hypokalemia Disposition: Still a Patient Condition on Discharge: Fair Referrals: Provider,Referral, [Referring] - - Critical Care Critical Care Time: No Attestation: On , the high probability of a clinically significant, sudden or life threatening deterioration of the following system(s) required my full and direct attention, intervention and personal management. The time I documented below is in addition to time spent performing reported procedures but includes the following listed in this critical care notation. Medical Decision Making - Subhash Inquiry Pt receiving controlled substance: No Subhash was queried for this patient: No Vital Signs: 11/02/18 16:59 Temperature 97.6 F Temperature Source Temporal Artery Scan Pulse Rate [Apical] 135 H Respiratory Rate 44 H Blood Pressure [Right Arm] 130/75 Blood Pressure Mean [Right Arm] 93 Blood Pressure Source [Right Arm] Automatic Cuff Blood Pressure Position [Right Arm] Sitting 02 Sat by Pulse Oximetry 65 L Oxygen Delivery Method Room Air Oxygen Flow Rate (LPM) 5 - Lab Data Lab Results 11/02/18 17:13: Lactate 4.2 H 11/02/18 17:21: Specimen Source R/r, O2 % 50, ABG pH 7.51 H, ABG pCO2 33.9 L, ABG pO2 103.5 H, ABG HCO3 26.3 H, ABG Total CO2 27.3 H, ABG O2 Saturation 98, ABG Base Excess 3.2 H, Jean Test Y 11/02/18 17:22: WBC 9.5, RBC 4.85, Hgb 16.1, Hct 48.7, MCV 100.4 H, MCH 33.3 H, MCHC 33.1, RDW 14.2, Plt Count 195, MPV 7.8, Neut % (Auto) 80.3 H, Lymph % (Auto) 13.6, Ida % (Auto) 5.3, Eos % (Auto) 0.4, Baso % (Auto) 0.4, Neut # (Auto) 7.6, Lymph # (Auto) 1.3, Ida # (Auto) 0.5, Eos # (Auto) 0.0, Baso # (Auto) 0.0 11/02/18 17:22: Sodium 137, Potassium 2.9 L*, Chloride 97 L, Carbon Dioxide 27, Anion Gap 15.9 H, BUN 19 H, Creatinine 1.16, Estimated Creat Clear 92, Estimated GFR 62, Est GFR ( Amer) 76, Glucose 204 H, Calcium 9.5, Total Bilirubin 1.1 H, AST 22, ALT 20, Alkaline Phosphatase 84, Total Creatine Kinase 64, CK-MB (CK-2) < 0.5 D, CK-MB (CK-2) Rel Index 0.8, Troponin I 0.07 H, Total Protein 7.7, Albumin 3.2 L, Globulin 4.5 H, Albumin/Globulin Ratio 0.7 L 11/02/18 17:22: B-Natriuretic Peptide 153 H Result diagrams: 11/02/18 17:22 11/02/18 17:22 Orders (Tests/Meds): ED MEDICATIONS Generic Name Dose Route Start Last Admin Trade Name Freq PRN Reason Stop Dose Admin Potassium Chloride/Sodium Chloride 1,000 mls @ 100 mls/hr 11/02/18 18:00 Kcl 20 Meq In Ns 1,000 Ml Iv Soln IV 12/02/18 17:59 .Q10H GINA Cefepime HCl 1 gm/ Sodium 50 mls @ 100 mls/hr 11/02/18 18:30 Chloride IV 11/16/18 18:29 Q12H GINA Protocol Levofloxacin/Dextrose 750 mg in 150 mls @ 100 mls/hr 11/02/18 18:30 Levofloxacin 750mg/150ml Premix IV 11/16/18 18:29 Q24H GINA Protocol Methylprednisolone Sodium Succinate 125 mg 11/02/18 17:15 11/02/18 17:47 Solu-Medrol 125mg/2ml Vial IV 12/02/18 17:14 125 mg Q12H GINA Administration Sodium Chloride 10 ml 11/02/18 17:15 Saline Flush 10ml Syringe IV 12/02/18 17:14 NEEDED PRN Maintain IV Site Discontinued Medications Generic Name Dose Route Start Last Admin Trade Name Freq PRN Reason Stop Dose Admin Albuterol/Ipratropium 3 ml 11/02/18 17:01 Duoneb 3ml Neb IH 11/02/18 17:02 ONCE ONE Famotidine 20 mg 11/02/18 17:01 11/02/18 17:47 Pepcid 20mg/2ml Vial IV 11/02/18 17:02 20 mg ONCE ONE Administration Sodium Chloride 1,000 mls @ 125 mls/hr 11/02/18 18:00 Sod Chlor 0.9% 1000ml Bag IV 12/02/18 17:59 .Q8H GINA Potassium Chloride 40 meq 11/02/18 17:56 11/02/18 18:04 Klor-Con 20meq Tablet PO 11/02/18 17:57 40 meq ONCE O
--- NOTE | 2018-11-02 17:06 | PC.NURSE ---
RT at placing pt on Bipap per ER request
--- NOTE | 2018-11-02 17:07 | ED_ITS ---
ED Disposition Clinical Impression: Pulmonary fibrosis, LLL pneumonia, Respiratory failure, Hypokalemia Disposition: Still a Patient Condition on Discharge: Fair Referrals: Provider,Referral, [Referring] - - Critical Care Critical Care Time: No Attestation: On , the high probability of a clinically significant, sudden or life threatening deterioration of the following system(s) required my full and direct attention, intervention and personal management. The time I documented below is in addition to time spent performing reported procedures but includes the following listed in this critical care notation. Medical Decision Making - Subhash Inquiry Pt receiving controlled substance: No Subhash was queried for this patient: No Vital Signs: 11/02/18 16:59 Temperature 97.6 F Temperature Source Temporal Artery Scan Pulse Rate [Apical] 135 H Respiratory Rate 44 H Blood Pressure [Right Arm] 130/75 Blood Pressure Mean [Right Arm] 93 Blood Pressure Source [Right Arm] Automatic Cuff Blood Pressure Position [Right Arm] Sitting 02 Sat by Pulse Oximetry 65 L Oxygen Delivery Method Room Air Oxygen Flow Rate (LPM) 5 - Lab Data Lab Results 11/02/18 17:13: Lactate 4.2 H 11/02/18 17:21: Specimen Source R/r, O2 % 50, ABG pH 7.51 H, ABG pCO2 33.9 L, ABG pO2 103.5 H, ABG HCO3 26.3 H, ABG Total CO2 27.3 H, ABG O2 Saturation 98, ABG Base Excess 3.2 H, Jean Test Y 11/02/18 17:22: WBC 9.5, RBC 4.85, Hgb 16.1, Hct 48.7, MCV 100.4 H, MCH 33.3 H, MCHC 33.1, RDW 14.2, Plt Count 195, MPV 7.8, Neut % (Auto) 80.3 H, Lymph % (Auto) 13.6, Boone % (Auto) 5.3, Eos % (Auto) 0.4, Baso % (Auto) 0.4, Neut # (Auto) 7.6, Lymph # (Auto) 1.3, [place] # (Auto) 0.5, Eos # (Auto) 0.0, Baso # (Auto) 0.0 11/02/18 17:22: Sodium 137, Potassium 2.9 L*, Chloride 97 L, Carbon Dioxide 27, Anion Gap 15.9 H, BUN 19 H, Creatinine 1.16, Estimated Creat Clear 92, Estimated GFR 62, Est GFR ( Amer) 76, Glucose 204 H, Calcium 9.5, Total Bilirubin 1.1 H, AST 22, ALT 20, Alkaline Phosphatase 84, Total Creatine Kinase 64, CK-MB (CK-2) < 0.5 D, CK-MB (CK-2) Rel Index 0.8, Troponin I 0.07 H, Total Protein 7.7, Albumin 3.2 L, Globulin 4.5 H, Albumin/Globulin Ratio 0.7 L 11/02/18 17:22: B-Natriuretic Peptide 153 H Result diagrams: 11/02/18 17:22 11/02/18 17:22 Orders (Tests/Meds): ED MEDICATIONS Generic Name Dose Route Start Last Admin Trade Name Freq PRN Reason Stop Dose Admin Potassium Chloride/Sodium Chloride 1,000 mls @ 100 mls/hr 11/02/18 18:00 Kcl 20 Meq In Ns 1,000 Ml Iv Soln IV 12/02/18 17:59 .Q10H GINA Cefepime HCl 1 gm/ Sodium 50 mls @ 100 mls/hr 11/02/18 18:30 Chloride IV 11/16/18 18:29 Q12H GINA Protocol Levofloxacin/Dextrose 750 mg in 150 mls @ 100 mls/hr 11/02/18 18:30 Levofloxacin 750mg/150ml Premix IV 11/16/18 18:29 Q24H GINA Protocol Methylprednisolone Sodium Succinate 125 mg 11/02/18 17:15 11/02/18 17:47 Solu-Medrol 125mg/2ml Vial IV 12/02/18 17:14 125 mg Q12H GINA Administration
[2018-11-02 17:22] LABS: ABG Base Excess 3.2 mmol/L (-2.4-2.3); ABG HCO3 26.3 mmhg (22.0-26.0); ABG Oxygen Saturation 98 % (90-100); ABG PCO2 33.9 mmhg (35.0-45.0); ABG PH 7.51 mmol/L (7.35-7.45); ABG PO2 103.5 mmhg (80-100); ABG TCO2 27.3 mmhg (23-27); Allen's Test Y; Oxygen 50 %; Source R/R
--- NOTE | 2018-11-02 17:29 | PC.NURSE ---
family at BS
[2018-11-02 17:33] LABS: Basophils % 0.4 % (0.1-2.0); Eosinophils % 0.4 % (0.1-12.0); Hematocrit 48.7 % (42.0-52.0); Hemoglobin 16.1 g/dL (14.1-18.0); Lymphocytes # 1.3 K/mm3 (0.7-4.5); Lymphocytes % 13.6 % (10-50); Mean Corpuscular HGB Conc 33.1 g/dL (31.8-35.4); Mean Corpuscular Hemoglobin 33.3 pg (27.0-31.2); Mean Corpuscular Volume 100.4 fl (80-94); Mean Platelet Volume 7.8 fl (7.4-10.4); Monocytes # 0.5 K/mm3 (0.1-1.0); Monocytes % 5.3 % (1.7-9.3); Neutrophils # 7.6 K/mm3 (1.8-7.8); Neutrophils % 80.3 % (37.0-80.0); Platelet Count 195 K/mm3 (142-424); Red Blood Count 4.85 M/mm3 (4.60-6.20); Red Cell Distribution Width 14.2 % (11.5-17.5); White Blood Count 9.5 K/mm3 (4.8-10.8)
--- NOTE | 2018-11-02 17:44 | XR_ITS ---
XR chest portable HISTORY: ITS.REASON: soa and Rlower rib pain ORDERING PHYSICIAN: Shruti Lindquist MD PATIENT AGE: 68 years COMPARISON: 09/14/2018 FINDINGS: There is cardiomegaly without failure. Diffuse pulmonary fibrosis is noted with some sparing of the left upper lobe. There are low lung volumes. There is some increased density in the left lung base which could be related to underlying infiltrate. IMPRESSION: Cardiomegaly with pulmonary fibrosis. Possible left lower lobe infiltrate
[2018-11-02 17:50] LABS: Lactic Acid 4.2 mmol/L (0.4-2.0)
[2018-11-02 17:53] LABS: Blood Urea Nitrogen 19 mg/dL (7-18); Carbon Dioxide 27 mmol/L (21.0-32.0); Chloride 97 mmol/L (98-107); Creatine Kinase 64 U/L (39-308); Creatinine Clearance Estimated 92 mL/min (50-200); Creatinine,Serum 1.16 mg/dL (0.70-1.30); Estimated Glomerular Filt Rate 62 ml/min (>60); GFR (African American) 76 ML/MIN (>60); Sodium 137 mmol/L (136-145)
[2018-11-02 17:54] LABS: Alanine Aminotransferase 20 U/L (12-78); Albumin Level 3.2 gm/dL (3.4-5.0); Albumin/Globulin Ratio 0.7 (1.1-1.8); Alkaline Phosphatase 84 U/L (46-116); Aspartate Amino Transferase 22 U/L (15-37); Bilirubin,Total 1.1 mg/dL (0.2-1.0); Calcium 9.5 mg/dL (8.5-10.1); Globulin 4.5 gm/dl (1.3-3.2); Glucose 204 mg/dL (74-106); Total Protein,Serum 7.7 gm/dL (6.4-8.2)
[2018-11-02 17:55] LABS: Anion Gap 15.9 mEq/L (5-15); Potassium 2.9 mmoL/L (3.5-5.1)
--- NOTE | 2018-11-02 17:55 | PC.NURSE ---
ER notified of Lactic Acid 4.2 called per
--- NOTE | 2018-11-02 17:57 | PC.NURSE ---
Asked ER MD about Sepsis IVF bolus r/t lactic acid of greater than 4 and meeting sepsis bolus criteria ER MD stated he wanted to see the rest of pt lab values and his chest xray prior to making a decision about sepsis IVF bolus
--- NOTE | 2018-11-02 17:58 | PC.NURSE ---
ER stated to change order for normal saline IVF to Normal Saline with 20MeQ of potassium IVF at 100 mL/hr
[2018-11-02 18:04] LABS: Troponin I 0.07 ng/ml (0.00-0.06)
--- NOTE | 2018-11-02 18:05 | PC.NURSE ---
rad at BS
[2018-11-02 18:08] LABS: CKMB Relative Index 0.8 U/L (0-4.0); Creatine Kinase MB < 0.5 ng/ml (0.0-3.6)
--- NOTE | 2018-11-02 18:30 | PC.NURSE ---
ER spoke with Dr. Toth who is agreeable for admission
--- NOTE | 2018-11-02 18:31 | PC.NURSE ---
updated report called to saqib jennings
--- NOTE | 2018-11-02 18:31 | PC.NURSE ---
supervisor dimension warehouse assigned pt to room 205 notifying ER registration of admission information
--- NOTE | 2018-11-02 19:04 | PC.NURSE ---
waiting tax commissioner back from Chris in pharmacy to check compatability of IVF with potassium and IVF levaquin
--- NOTE | 2018-11-02 19:06 | PC.NURSE ---
Chris called back at this time stated NS with potassium and IV levaquin are compatible
--- NOTE | 2018-11-02 19:27 | PC.NURSE ---
report called to JOESPH Delgado on second floor at this time
--- NOTE | 2018-11-02 19:44 | PC.NURSE ---
ARRIVED TO FLOOR, PER CATHERINE, FROM ED @ 194
[2018-11-02 21:19] LABS: Reflex Lactic Add Lactic Reflex
[2018-11-02 21:54] LABS: Lactic Acid Follow Up (RFLX 1) 1.9 (0.4-2.0)
--- NOTE | 2018-11-02 23:22 | PC.NURSE ---
Pt arrived to the floor on Venti mask @ 50% FiO2, sats 93-96%. Pt denies any SOB, RR 27, and faint cyanosis noted to nail-bed and lips. Pt was on 50% Bipap in ER prior to transferring to floor, d/t pt's O2 sat wnl, RT kept pt on Ventimask @ 50%. Pt tolerated very well until he repositioned in bed and then could not keep sat >87. RT notified and requesting pt be placed back onto Bipap. RT requested this RN place pt on 100% NRB mask until RT could transition pt to Bipap. Pt's O2 quickly increased on NRB to 96%. Pt maintained 100% O2 sat on 100% NRB for over an hour. This RN removed 1 flap to titrate down on O2. However, pt decreased greatly after ambulated to [facility]. Pt c/o dyspnea and was tachypneic at 35. Flap was replaced on pt mask. Pt very slow to rise on O2 sat, attempting slow deep breaths to increase sat. Pt only able to reach 88%. RT notified and came to pt's room to start pt back onto the Bipap. At this time however, pt refusing bipap d/t pt not wanting to remove eye glasses for mask to fit properly. Dr. Toth called d/t pt's refusal to wear BiPap and continued low sat. Pt currently is not maintaining O2 sats > 92% as stipulated by Dr. Lindquist on admission. ordered trial of Vapotherm settings per RT.
[2018-11-03] VITALS (14 sets, daily range): BP systolic 115–142; BP diastolic 70–90; PULSE 68–96; RESP 21–29; TEMP 36.4–37.1; O2SAT 87–98
--- NOTE | 2018-11-03 00:25 | PC.NURSE ---
RT has completed pt with Vapotherm and pt has be comfortable & maintaining O2 sat of 94-97%. Current settings on vapotherm are: 36lpm, 90% Fio2, and temp 36 degrees. Pt tolerating well, will continue to monitor.
--- NOTE | 2018-11-03 05:15 | PC.NURSE ---
Pt noted to have sat of 79% on monitor, pt assessed and found to have bent over to get trash can near bed. Pt advised to not exert himself and to use call estrada to alert staff of needs in between hourly safety checks. O2 sat increasing with dependent position although increases slowly. RT notified and arrived soon after to administer neb tx. Pt denies any SOB and current sat is 92% on Vapotherm of 90% fio2. Will continue to monitor pt.
[2018-11-03 07:09] LABS: Basophils % 0.2 % (0.1-2.0); Eosinophils % 0.1 % (0.1-12.0); Hematocrit 42.7 % (42.0-52.0); Lymphocytes # 0.9 K/mm3 (0.7-4.5); Lymphocytes % 11.8 % (10-50); Mean Corpuscular HGB Conc 32.5 g/dL (31.8-35.4); Mean Corpuscular Hemoglobin 32.6 pg (27.0-31.2); Mean Corpuscular Volume 100.2 fl (80-94); Mean Platelet Volume 7.4 fl (7.4-10.4); Monocytes # 0.3 K/mm3 (0.1-1.0); Monocytes % 4.4 % (1.7-9.3); Neutrophils % 83.6 % (37.0-80.0); Platelet Count 165 K/mm3 (142-424); Red Blood Count 4.26 M/mm3 (4.60-6.20); Red Cell Distribution Width 14.1 % (11.5-17.5); White Blood Count 7.2 K/mm3 (4.8-10.8)
[2018-11-03 07:13] LABS: Hemoglobin 13.9 g/dL (14.1-18.0)
[2018-11-03 07:14] LABS: Anion Gap 13.1 mEq/L (5-15); Blood Urea Nitrogen 16 mg/dL (7-18); Calcium 9.1 mg/dL (8.5-10.1); Carbon Dioxide 27 mmol/L (21.0-32.0); Chloride 99 mmol/L (98-107); Creatinine Clearance Estimated 103 mL/min (50-200); Creatinine,Serum 0.84 mg/dL (0.70-1.30); Estimated Glomerular Filt Rate 91 ml/min (>60); GFR (African American) 110 ML/MIN (>60); Glucose 190 mg/dL (74-106); Magnesium 1.5 mg/dL (1.4-2.2); Potassium 3.1 mmoL/L (3.5-5.1); Sodium 136 mmol/L (136-145)
--- NOTE | 2018-11-03 07:29 | PC.NURSE ---
REPORT GIVEN TO Patricia HUNTER W/C
--- NOTE | 2018-11-03 08:02 | PC.NURSE ---
Report given to Sofia PINK
--- NOTE | 2018-11-03 08:56 | HMH.HP ---
*Admission Date: 11/02/18 *Chief complaint: Shortness of air. Pulmonary fibrosis. *History of present illness: This 68-year-old white male was admitted through the emergency room yesterday evening. He has known pulmonary fibrosis. He is followed by Dr. mg and by Dr. Medina. He states that he did well after his discharge in August. 6 days ago, however, he passed out and fell. Injuring his right lower rib area. He has remained more short of breath ever since. Thus his presentation to the emergency room. See the ER record. He was on BiPAP for a period of time in the emergency room. He has been maintained on Vapotherm since then. He feels somewhat better. Resting his sats have been in the 90% range but declined with any exertion whatsoever. He has had a cough with little sputum production. [facility] History Medical History: Reports:: Gastroesophageal Reflux Disease(GERD), Hepatitis (as a kid), Home Oxygen, Hyperlipidemia, Hypertension, Lung Disease (Pulmonary fibrosis) Denies:: Cancer, Diabetes Mellitus Type 1, Diabetes Mellitus Type 2, MRSA, Pulmonary Embolism Have you ever received a pneumonia vaccine?: No Have you received a flu vaccine this season?: Yes Other Surgeries: Yes: Appendectomy Amputation: No Fractures: No - *Social History Smoking Status: Former smoker Tobacco Type: e-cigarettes Alcohol Intake: current Alcohol Intake Frequency:: a few times a week Substance Use Type: denies use Occupational Status: retired Housing: house Household Members: spouse Travel in the last 8 weeks: None - Psychiatric History Expresses thoughts of harming self/others: None Suicide Plan Description: No Plan *Family Hx:: No significant family history Review of Systems - Constitutional Reports lack of energy, Reports weakness, Denies chills - Eyes Denies change in vision - ENT Denies abnormal hearing, Denies bleeding gums, Denies nasal congestion - *Cardiovascular Reports chest pain (Due to trauma as described), Reports shortness of breath, Reports shortness of breath with activity, Denies generalized swelling, Denies irregular heart rhythm, Denies leg swelling - *Respiratory Reports chest congestion, Reports cough, Reports shortness of breath, Reports shortness of breath with activity, Denies coughing up blood - *Gastrointestinal Denies abdominal pain, Denies change in bowel habits - *Genitourinary Denies difficulty urinating - *Musculoskeletal Denies limited joint movement - Integumentary/Breasts Denies dry skin, Denies yellowing of the skin - *Neurologic Reports unsteadiness, Reports dizziness, Reports weakness, Denies behavioral changes, Denies confusion, Denies seizure-like activity - Allergic/Immunologic Denies hives Meds Home Medications Medication Instructions Recorded Confirmed Type aspirin 81 mg tablet,delayed 81 mg PO DAILY 09/04/18 11/02/18 History release coenzyme Q10 100 mg capsule 200 mg PO DAILY 09/04/18 11/02/18 History esomeprazole magnesium 20 mg 20 mg PO DIRECTED PRN 09/04/18 11/02/18 History capsule,delayed release hydrochlorothiazide 25 mg tablet 25 mg PO DAILY 09/04/18 11/02/18 History pravastatin 40 mg tablet 40 mg PO DAILY 09/04/18 11/02/18 History vitamin A-vitamin C-vit E-min 1 cap PO DAILY cap 09/04/18 11/02/18 History capsule Ipratropium/Albuterol Sulfate 3 ml IH Q4H 10/31/18 10/31/18 History [Duoneb 3mL neb] Theophylline Anhydrous [Martin-Dur 300 mg PO DAILY 10/31/18 11/02/18 History 300mg tablet] predniSONE [Prednisone 20mg 10 mg PO DAILY 10/31/18 11/02/18 History Tab] Lidocaine [Lidoderm 5% transdermal 1 each TP Q24H 11/02/18 11/02/18 History patch] Metoprolol Tartrate 50 mg PO BID 11/02/18 11/02/18 History Pirfenidone [Esbriet] 267 mg PO TID 11/02/18 11/02/18 History Allergies Allergy/AdvReac Type Severity Reaction Status Date / Time No Known Allergies Allergy Verified 10/31/18 08:54 Exam Vital signs and Labs for Last 2
--- NOTE | 2018-11-03 08:59 | P.HP_ITS ---
*Admission Date: 11/02/18 *Chief complaint: Shortness of air. Pulmonary fibrosis. *History of present illness: This 68-year-old white male was admitted through the emergency room yesterday evening. He has known pulmonary fibrosis. He is followed by Dr. mg and by Dr. Medina. He states that he did well after his discharge in August. 6 days ago, however, he passed out and fell. Injuring his right lower rib area. He has remained more short of breath ever since. Thus his presentation to the emergency room. See the ER record. He was on BiPAP for a period of time in the emergency room. He has been maintained on Vapotherm since then. He feels somewhat better. Resting his sats have been in the 90% range but declined with any exertion whatsoever. He has had a cough with little sputum production. [facility] History Medical History: Reports:: Gastroesophageal Reflux Disease(GERD), Hepatitis (as a kid), Home Oxygen, Hyperlipidemia, Hypertension, Lung Disease (Pulmonary fibrosis) Denies:: Cancer, Diabetes Mellitus Type 1, Diabetes Mellitus Type 2, MRSA, Pulmonary Embolism Have you ever received a pneumonia vaccine?: No Have you received a flu vaccine this season?: Yes Other Surgeries: Yes: Appendectomy Amputation: No Fractures: No - *Social History Smoking Status: Former smoker Tobacco Type: e-cigarettes Alcohol Intake: current Alcohol Intake Frequency:: a few times a week Substance Use Type: denies use Occupational Status: retired Housing: house Household Members: spouse Travel in the last 8 weeks: None - Psychiatric History Expresses thoughts of harming self/others: None Suicide Plan Description: No Plan *Family Hx:: No significant family history Review of Systems - Constitutional Reports lack of energy, Reports weakness, Denies chills - Eyes Denies change in vision - ENT Denies abnormal hearing, Denies bleeding gums, Denies nasal congestion - *Cardiovascular Reports chest pain (Due to trauma as described), Reports shortness of breath, Reports shortness of breath with activity, Denies generalized swelling, Denies irregular heart rhythm, Denies leg swelling - *Respiratory Reports chest congestion, Reports cough, Reports shortness of breath, Reports shortness of breath with activity, Denies coughing up blood - *Gastrointestinal Denies abdominal pain, Denies change in bowel habits - *Genitourinary Denies difficulty urinating - *Musculoskeletal Denies limited joint movement - Integumentary/Breasts Denies dry skin, Denies yellowing of the skin - *Neurologic Reports unsteadiness, Reports dizziness, Reports weakness, Denies behavioral changes, Denies confusion, Denies seizure-like activity - Allergic/Immunologic Denies hives Meds Home Medications Medication Instructions Recorded Confirmed Type aspirin 81 mg tablet,delayed 81 mg PO DAILY 09/04/18 11/02/18 History release coenzyme Q10 100 mg capsule 200 mg PO DAILY 09/04/18 11/02/18 History esomeprazole magnesium 20 mg 20 mg PO DIRECTED PRN 09/04/18 11/02/18 History capsule,delayed release hydrochlorothiazide 25 mg tablet 25 mg PO DAILY 09/04/18 11/02/18 History pravastatin 40 mg tablet 40 mg PO DAILY 09/04/18 11/02/18 History vitamin A-vitamin C-vit E-min 1 cap PO DAILY cap 09/04/18 11/02/18 History capsule Ipratropium/Albuterol Sulfate 3 ml IH Q4H 10/31/18 10/31/18 History [Duoneb 3mL neb] Theophylline Anhydrous [Martin-Dur 300 mg PO DAILY
--- NOTE | 2018-11-03 09:19 | PC.NURSE ---
HOME MEDICATIONS IN LOCKED DRAWER, RN REMOVED MEDICATIONS TO GIVE TO PHARMACY. RN ROUNDED WITH DR. HURLEY IN PATIENT'S ROOM
--- NOTE | 2018-11-03 10:35 | PC.NURSE ---
trash was taken out, ice water was given. no other needs at this time.
--- NOTE | 2018-11-03 11:23 | HMH.PHAINT ---
MED REC DONE. COMPARED TO RX BOTTLES. MAKING SOME CHANGES. PATIENT'S ESTRIET BOTTLE WAS EMPTY. DISCUSSED WITH PATIENT AND HIS IS BRINGING IN MORE MEDICATION. OTHER HOME MEDICATIONS PACKAGED.
--- NOTE | 2018-11-03 11:25 | HMH.PHAVTE ---
[facility] Pharmacy VTE Monitoring - Patient Demographics Admission date: 11/03/18 Report Date: 11/03/18 Time: 11:25 Allergies/Adverse Reactions: Patient Allergies No Known Allergies Allergy (Verified 10/31/18 08:54) Height: 1.83 m Weight: 104.014 kg Patient Problems: Current Active Problems LLL pneumonia (Acute) Respiratory failure (Acute) Hypokalemia (Acute) Pulmonary fibrosis (Chronic) - VTE Risk Labs: VTE Related Lab Results Hgb 13.9 g/dL (14.1-18.0) L D 11/03/18 06:45 Hct 42.7 % (42.0-52.0) 11/03/18 06:45 Plt Count 165 K/mm3 (142-424) 11/03/18 06:45 BUN 16 mg/dL (7-18) 11/03/18 06:45 Creatinine 0.84 mg/dL (0.70-1.30) D 11/03/18 06:45 Estimated Creat Clear 103 mL/min (50-200) 11/03/18 06:45 Was VTE Risk Assessment Performed: Yes VTE Score: 7 VTE Risk Level: Moderate Risk - Prophylaxis Types of VTE Prophylaxis: TEDS Knee High (KEITH HOSE ORDER PLACED) Location of Applied Device: Not Applicable
--- NOTE | 2018-11-03 15:37 | PC.NURSE ---
RN AND PHARMACIST, MARY, EDUCATED PATIENT AND FAMILY IN REGARDS TO USING HOME MEDICATIONS.
--- NOTE | 2018-11-03 16:09 | PC.NURSE ---
patient is sitting up in bed awake, ice water was given & trash was taken out. no other needs voiced at this time.
--- NOTE | 2018-11-03 18:07 | PC.NURSE ---
PATIENT A&O, PERRLA, BUE AND BLE EQUAL, PULSES EQUAL. PATIENT SKIN COLOR IS RED IN THE FACE. PATIENT O2 WILL DROP TO THE HIGH 70S TO MID 80S WHEN MOVING IN BED. PATIENT HAD A BED BATH AND O2 DROPPED TO THE 80S. VAPOTHERM WAS MOVED DOWN TO 80 BUT PATIENT CONTINUED TO BE IN THE 80S. RESPIRATORY PUT PATIENT BACK AT 90% AND PATIENT REMAINS AT 92% PATIENT ABLE TO FEED SELF AND USE URINAL AT BEDSIDE. NO NEW NEEDS OR CONCERNS AT THIS TIME.
--- NOTE | 2018-11-03 18:51 | PC.NURSE ---
ROSHNI FROM LAB PHONED RN, NEEDS A REDO ON SPUTUM COLLECTION. COLLECTION SENT DOWN TODAY WAS NO ENOUGH. RN INFORMED HIM, MESSAGE WILL BE PASSED DOWN.
--- NOTE | 2018-11-03 19:50 | PC.NURSE ---
Pt noted to have O2 sat of 85-87% on Vapotherm with settings: 90% fio2, 40 flow rate. Deep breathing & IS completed wo increase to o2 sat. RT notified. RT arrived and increased Vapotherm settings: 98% fio2, 36 flow rate. sat's increased to 90-91%. Pt was A&O, not restless or cyanotic, and denied any SOB. O2 sensor site changed to multiple sites & fingertips warm. Will continue to monitor.
[2018-11-04] VITALS (11 sets, daily range): BP systolic 118–136; BP diastolic 78–87; PULSE 92–122; RESP 22–34; TEMP -13.3–36.9; O2SAT 84–96
--- NOTE | 2018-11-04 01:55 | PC.NURSE ---
Pt's o2 79-83%. Pt is found to be A&Ox3, pt reports he has not exerted himself in anyway. IS and deep slow breathing completed wo change to o2 sat. RT notified of changes. Pt previously refused Bipap d/t not fitting eye-glasses well with mask. Although with continued decreased sat's and pt teaching given, pt consented to trial bipap through the night. RT arrived to floor, pt completed breathing tx at this time as well. O2 sat currently 81-83% on 100% NRB during switch to Bipap. Bipap in place @ 85% fio2 & 16 forced breaths/min and pt tolerating well, sat currently 91%. RT was able to fit eye-glasses beneath mask while maintaining good seal on mask. Pt reassessed and sat's increased to 93-95% Pt continues to tolerates bipap well at this time.
--- NOTE | 2018-11-04 04:00 | PC.NURSE ---
Pt c/o of forced air from bipap and states That thing is burning me up , pt is adjusting mask continuously and over-breathing bipap. Pt encouraged to try and calm carol, focus on depp slow breaths, current RR is 37 and very irregular with adb breathing. O2 sat 94-95% currently. Pt RR not decreasing and pt still very uncomfortable. RT notified and arrived shortly to adjust changed to bipap to keep pt comfortable while maintaining sat's. RT changed setting from Bipap to CPAP, removing the controlled breathing. Pt starting to calm down and states he feels much better. Current sat 92%. will continue to monitor.
--- NOTE | 2018-11-04 05:55 | PC.NURSE ---
Pt found to be asleep, this is the 1st time pt slept this shift, only for a brief time, but was able to rest successfully. Pt continues to deny SOB/dysnpea, o2 sat 95% and RR 26, adb breathing still noted. Pt is tolerating well wo complaints at this time.
[2018-11-04 06:50] LABS: POC Glucose,Bedside 148 (70-110)
[2018-11-04 07:06] LABS: Anion Gap 11.5 mEq/L (5-15); Blood Urea Nitrogen 14 mg/dL (7-18); Calcium 9.3 mg/dL (8.5-10.1); Carbon Dioxide 30 mmol/L (21.0-32.0); Chloride 100 mmol/L (98-107); Creatinine Clearance Estimated 103 mL/min (50-200); Creatinine,Serum 0.96 mg/dL (0.70-1.30); Estimated Glomerular Filt Rate 78 ml/min (>60); GFR (African American) 94 ML/MIN (>60); Glucose 143 mg/dL (74-106); Potassium 3.5 mmoL/L (3.5-5.1); Sodium 138 mmol/L (136-145)
--- NOTE | 2018-11-04 07:19 | PC.NURSE ---
REPORT GIVEN TO Orion REYNOSO W/C
--- NOTE | 2018-11-04 07:30 | PC.NURSE ---
Report given to Sofia Moreno RN
--- NOTE | 2018-11-04 08:39 | HMH.ACPN2 ---
Internal Medicine - PN: Subj Interval history: Patient is dyspneic at present. He was being switched from BiPAP to Vapotherm which time Vapotherm was not working. He is temporarily on 100% nonrebreather. He is gradually beginning to feel better. He states he felt like he was going to pass out. He wanted the BiPAP switch so that he could make some phone calls this a.m. Exam Vital signs and Labs for Last 24 Hours: Temp Pulse Resp BP Pulse Ox 98.5 F 100 H 28 H 118/78 93 L 11/04/18 04:00 11/04/18 05:57 11/04/18 04:00 11/04/18 04:00 11/04/18 05:57 Laboratory Results - last 24 hr 11/04/18 06:18: Sodium 138, Potassium 3.5, Chloride 100, Carbon Dioxide 30, Anion Gap 11.5, BUN 14, Creatinine 0.96, Estimated Creat Clear 103, Estimated GFR 78, Est GFR ( Amer) 94, Glucose 143 H D, Calcium 9.3 11/04/18 06:19: POC Glucose 148 H I & O for Last 24 hours: Intake & Output 11/01/18 11/02/18 11/03/18 11/04/18 11:59 11:59 11:59 11:59 Intake Total 530 / 530 890 / 890 Output Total 400 / 400 775 / 775 Balance 130 / 130 115 / 115 Weight 229 lb 5 oz Microbiology Reports for the Last 24 Hours: Microbiology 11/03/18 15:38 Sputum - Expectorated Sputum Gram Stain - Final 11/03/18 15:38 Sputum - Expectorated Sputum Sputum Culture - Final - Constitutional Comments: Dyspneic at present - *Routine Respiratory Exam Comments: Fine crackles bilaterally anteriorly - *Routine Cardiovascular Exam Present: RRR - *Routine Abdominal Exam Present: soft, normoactive bowel sounds. Absent: tenderness - *Routine Extremities Exam Absent: edema - *Routine Neurological Exam Present: alert, oriented X3 Assessment and Plan (1) LLL pneumonia Current visit: Yes Status: Acute Category: Medical Code(s): J18.1 - Lobar pneumonia, unspecified organism (2) Respiratory failure Current visit: Yes Status: Acute Category: Medical Code(s): J96.90 - Respiratory failure, unspecified, unspecified whether with hypoxia or hypercapnia (3) Pulmonary fibrosis Current visit: Yes Status: Chronic Category: Medical Code(s): J84.10 - Pulmonary fibrosis, unspecified - Assessment and plan all Dx Assessment and Plan for all problems:: We will continue with respiratory support with BiPAP and Vapotherm. Patient is a known DNR and does not wish to be intubated. We will continue with antibiotics and duo nebs.
--- NOTE | 2018-11-04 08:57 | PC.NURSE ---
NURSE NOTIFIED OF PTS LOW O2 SATS & ELEVATED RESPIRATIONS.
--- NOTE | 2018-11-04 09:26 | XR_ITS ---
XR chest portable HISTORY: ITS.REASON: Respiratory failure ORDERING PHYSICIAN: Pilar Saez MD PATIENT AGE: 68 years Technique: AP portable upright chest 9:36 AM COMPARISON: AP portable chest 11/02/2018 & 09/14/2018. FINDINGS: Diffuse bilateral infiltrates I have developed. Diffuse interstitial infiltrate is seen throughout the entire right lung slightly more evident towards right lung base. Infiltrate at the left lung base is shown progression partially obscuring left hemidiaphragm. . There is hyperexpansion and emphysematous changes most evident at the left apical region with less evident infiltrate here. . I suspect we are viewing a focal pneumonic infiltrate at the left lower lobe. . diffuse infiltrate could be due to interstitial edema from vascular congestion or/fluid overload. Warrants correlation with BnP . Alternatively this could reflect a diffuse interstitial pneumonia (associated with the patient's underlying pulmonary fibrotic changes. There is less optimal inspiration. Cardiomegaly. Chest wall unremarkable. Mediastinum unchanged. IMPRESSION. . Prominent Change since prior study . interval development of Diffuse interstitial infiltrates throughout Right Lung & majority of Left Lung. .Also progression of previously noted infiltrate LLL, which now obscures left hemidiaphragm I suspect most likely there is CHF/pulmonary edema here associated yielding diffuse interstitial edema. Along with the previously noted left lower lobe pneumonia. Less likely diffuse interstitial new pneumonia/has developed bilaterally. . warrants correlation withBNP & WBC#and clinical picture
--- NOTE | 2018-11-04 10:51 | PC.NURSE ---
COURTESY ROUND AT THIS AKUA. PT RESTINGING IN BED WITH FAMILY AT BEDSIDE. FAMILY VOICED NO NEEDS.
--- NOTE | 2018-11-04 11:39 | PC.NURSE ---
NURSE NOTIFIED OF ALL OF PTS VITAL SIGNS.
[2018-11-04 12:44] LABS: POC Glucose,Bedside 183 (70-110)
--- NOTE | 2018-11-04 14:56 | SW/DCPLANNER ---
Addendum entered by Lucille Vanegas 11/04/18 19:24: I have spoke with Guerda from Hospice and she stated after patient evaluation and long discussion with family the decision was made to admit this patient under inpatient Hospice care. Per Guerda admit time is 11/04/18 at 6:10PM. I have made Dr Saez aware of this plan as well. Original Note: Addendum entered by Lucille Vanegas 11/04/18 16:04: Guerda Randhawa with [facility] will be here this evening to speak with family and evaluate this patient. I will follow up with this patient and [facility] [employer]penser nurse this evening. Original Note: I have spoke with this patients regarding comfort care and Hospice services with med/surg wireless development manager (Cliff Martins). is interested in Hospice services and would like for a major account representative to speak with herself and their two daughters this afternoon when daughters arrive at [facility]. I have faxed patient information to [facility] in [place] and spoke with Colleen. I have informed Colleen of situation and I will follow up with Colleen and family to arrange an appropriate time for meeting.
--- NOTE | 2018-11-04 15:50 | PC.NURSE ---
AT START OF SHIFT PATIENT WAS ON CPAP FOR O2 SATS DROPPING DOWN TO 70 THRU THE NIGHT. RN PHONED RESPIRATORY TO REMOVE MASK SO PATIENT MAY EAT BREAKFAST. WHEN MASK CAME OFF, O2 DROPPED AND PATIENT BEGAN STRUGGLING TO BREATH, PATIENT REFUSED TO EAT. RT WAS CALLED TO ROOM, PATIENT WAS PUT ON VAPOTHERM AT 40/95. O2 WAS STABLE AROUND HIGH 80S. ALARM ON VAPOTHERM WENT OFF, RN WENT TO ASSESS, O2 WAS IN LOW 60S AND PATIENT WAS STRUGGLING TO BREATH. RT WAS CALLED AGAIN, RT INSTRUCTED RN TO PLACE A NON REBREATHER MASK. RN PLACE NON REBREATHER. RT CAME TO ROOM AND PLACED PATIENT ON A BIPAP, PATIENT WAS FIGHTING FORCED RESPIRATIONS, RUNNING HIS RATE IN THE LOW 50S AND O2 LOW 70S. RN GOT DR. HURLEY TO COME TO ROOM TO EVALUTE PATIENT. XAVI ZIMMERMAN ORDERED PATIENT LASIX 20MG IV X1, SOLUMEDROL 125MG IV X1, , AND NORCO 5/325. 3 RNS AND 2RT IN ROOM WERE TRYING TO HAVE PATIENT RELAX TO CONTROL RR. PATIENT CONTINUED TO STRUGGLE. JOESPH HOLLEY PHONED DR. HURLEY AND GOT AN ORDER FOR SERAX 10MG PO. WHEN RN PROVIDED MEDICATION TO PATIENT, HE BEGAN TO CHOKE AND CONTINUED TO REMAIN IN RR OVER 40. JOESPH KINGSLEY PHONED MD AND GOT AN ORDER MORPHINE 1MG IV PUSH X1. RN CONTINUED TO TRY TO CALM PATIENT DOWN, TO STOP FIGHTING MACHINE. SPOUSE ARRIVED AND SPOKE WITH CRUSHING MACHINE OPERATOR, CAM. AT THIS POINT PATIENT STARTED TO RELAX AND FEEL ASLEEP WITH RR IN THE HIGH 30S
--- NOTE | 2018-11-04 18:57 | HMH.ACPN2 ---
Internal Medicine - PN: Subj *Date: 11/04/18 *Time: 18:57 Interval history: Since this morning the patient has required BiPAP in order to maintain his saturations at reasonable levels. He currently is at 89%. This afternoon I had a chance to speak with his and daughter. They were present in his room. They understand the gravity of the situation. They have decided to involve hospice. Exam Vital signs and Labs for Last 24 Hours: Temp Pulse Resp BP Pulse Ox 97.9 F 107 H 27 H 136/87 90 L 11/04/18 15:35 11/04/18 15:35 11/04/18 15:35 11/04/18 15:35 11/04/18 15:35 Laboratory Results - last 24 hr 11/04/18 06:18: Sodium 138, Potassium 3.5, Chloride 100, Carbon Dioxide 30, Anion Gap 11.5, BUN 14, Creatinine 0.96, Estimated Creat Clear 103, Estimated GFR 78, Est GFR ( Amer) 94, Glucose 143 H D, Calcium 9.3 11/04/18 06:19: POC Glucose 148 H 11/04/18 12:36: POC Glucose 183 H I & O for Last 24 hours: Intake & Output 11/02/18 11/03/18 11/04/18 11/05/18 11:59 11:59 11:59 11:59 Intake Total 530 / 530 890 / 890 Output Total 400 / 400 825 / 825 600 / 600 Balance 130 / 130 65 / 65 -600 / -600 Weight 229 lb 5 oz Microbiology Reports for the Last 24 Hours: Microbiology 11/02/18 17:22 Blood Blood Culture - Preliminary NO GROWTH AFTER 48 HOURS 11/02/18 17:13 Blood Blood Culture - Preliminary NO GROWTH AFTER 48 HOURS 11/03/18 15:38 Sputum - Expectorated Sputum Gram Stain - Final 11/03/18 15:38 Sputum - Expectorated Sputum Sputum Culture - Final - Constitutional Comments: Currently resting. (Morphine is been ordered 1 mg every 2 hours as needed.) - *Routine Respiratory Exam Comments: BiPAP in place. Sat at 89%. - *Routine Cardiovascular Exam Present: RRR - *Routine Extremities Exam Comments: Only trace of edema. Assessment and Plan (1) LLL pneumonia Current visit: Yes Status: Acute Category: Medical Code(s): J18.1 - Lobar pneumonia, unspecified organism (2) Respiratory failure Current visit: Yes Status: Acute Category: Medical Code(s): J96.90 - Respiratory failure, unspecified, unspecified whether with hypoxia or hypercapnia (3) Pulmonary fibrosis Current visit: Yes Status: Chronic Category: Medical Code(s): J84.10 - Pulmonary fibrosis, unspecified - Assessment and plan all Dx Assessment and Plan for all problems:: Continue present regimen. Dr. Medina plans to see the patient tomorrow. I did speak with him today briefly.
--- NOTE | 2018-11-04 19:18 | PC.NURSE ---
report given to lenard
--- NOTE | 2018-11-04 19:40 | PC.NURSE ---
PATIENT HAS BEEN ON BIPAP SONYA, HIS O2 SATS HAVE VARIED FROM HIGH 70S TO LOW 90S. FAMILY HAS BEEN AT BEDSIDE THROUGHOUT THE DAY. FAMILY HAS HAD MEETINGS WITH ISIDORO HILARIO AND HOSPICE. PATIENT HAS BEEN ABLE TO WAKE UP TO SAY HE HAS TO PEE OR ASK FOR A DRINK OF WATER, DURING THOSE TIMES, HE WILL FIGHT THE MACHINE AND DROP HIS O2 LEVEL. PATIENT IS A HOSPICE PATIENT. NO OTHER NEEDS OR CONCERNS AT THIS TIME.
[2018-11-05] VITALS (13 sets, daily range): BP systolic 126–128; BP diastolic 78–80; PULSE 78–99; RESP 20–25; TEMP 36.2–36.8; O2SAT 91–93
--- NOTE | 2018-11-05 03:00 | PC.NURSE ---
Pt is a 68 year old white male admitted with Respiratory failure. Pt is currently on a cpap with 02 remaining around 88-89%. Hospice Came yesterday and admitted pt. Through the night family request to give comfort medications only. Stated pt choked on a tablet yesterday. Educated family that nurse could crush some of the medications. Family and pt agreed to the anxiety and pain pill to be given. Resp has remained high in mid 30's at times. Pt states pain is at a tolerable level, at times no pain at all. Very SOA with any exertion such as talking or sipping water. Lungs Have rhonchi in the upper and lower lobes of right lung. Educated pt and family on pain management any activities to decrease shortness of air. Call light within reach. Will continue to monitor.
--- NOTE | 2018-11-05 08:26 | PC.NURSE ---
NURSE NOTIFIED OF PTS TEMP AXILLARY 97.1. PT REFUSED FOR RECTAL TEMP TO BE OBTAINED.NURSE NOTIFIED
--- NOTE | 2018-11-05 08:52 | HMH.ACPN2 ---
Internal Medicine - PN: Subj Interval history: Patient struggles with breathing after any stimulation. He becomes easily agitated. Family is at bedside and stated after anxiety and pain pill that patient did rest. He takes sips of liquids but has not eaten. He remains on CPAP. Patient care management no appreciated. Patient is now hospice patient. Dr. Medina to see patient today. Exam Vital signs and Labs for Last 24 Hours: Temp Pulse Resp BP Pulse Ox 97.1 F L 99 H 25 H 126/78 93 L 11/05/18 08:00 11/05/18 08:00 11/05/18 08:00 11/05/18 08:00 11/05/18 08:00 Laboratory Results - last 24 hr 11/04/18 12:36: POC Glucose 183 H I & O for Last 24 hours: Intake & Output 11/02/18 11/03/18 11/04/18 11/05/18 11:59 11:59 11:59 11:59 Intake Total 530 / 530 890 / 890 120 / 120 Output Total 400 / 400 825 / 825 1200 / 1200 Balance 130 / 130 65 / 65 -1080 / -1080 Weight 229 lb 5 oz Microbiology Reports for the Last 24 Hours: Microbiology 11/02/18 17:22 Blood Blood Culture - Preliminary NO GROWTH AFTER 48 HOURS 11/02/18 17:13 Blood Blood Culture - Preliminary NO GROWTH AFTER 48 HOURS - Constitutional Comments: Dozing when left alone. - *Routine Respiratory Exam Present: CTA bilaterally ( anteriorly and laterally) - *Routine Cardiovascular Exam Present: RRR - *Routine Extremities Exam Absent: edema - *Routine Neurological Exam Awakens easily. Agitated when awake. Assessment and Plan (1) LLL pneumonia Current visit: Yes Status: Acute Category: Medical Code(s): J18.1 - Lobar pneumonia, unspecified organism (2) Respiratory failure Current visit: Yes Status: Acute Category: Medical Code(s): J96.90 - Respiratory failure, unspecified, unspecified whether with hypoxia or hypercapnia (3) Pulmonary fibrosis Current visit: Yes Status: Chronic Category: Medical Code(s): J84.10 - Pulmonary fibrosis, unspecified - Assessment and plan all Dx Assessment and Plan for all problems:: Maintain comfort. Dr. Medina to see today.
--- NOTE | 2018-11-05 10:54 | PC.NURSE ---
COURTESY ROUND. PT ASLEEP IN BED. FAMILY AT BEDSIDE. NO NEEDS STATED.
--- NOTE | 2018-11-05 13:06 | NVE_ITS ---
Venous Exam Indications: 786.05 Shortness of breath. IMPRESSIONS No evidence of deep or superficial vein thrombosis involving the right lower extremity and left lower extremity History: Swelling of both lower extremities. Dyspneasecondary to pulmonary fibrosis. Risk factors: Former tobacco use. Hypertension. Complete lower extremity venous duplex evaluation. Doppler flow study including spectral analysis, color and gil scale imaging. Location: Bedside. Patient status: Inpatient. Tables: Venous flow and imaging: + +-------+ + Location Overall Flow properties + +-------+ + Right common femoral Patent Normal phasicity; spontaneous; normal augmentation; compressible + +-------+ + Right saphenofemoral junction Patent Compressible + +-------+ + Right profunda femoral Patent Compressible + +-------+ + Right femoral Patent Normal phasicity; spontaneous; normal augmentation; compressible; no reflux + +-------+ + Right popliteal Patent Normal phasicity; spontaneous; normal augmentation; compressible + +-------+ + Right posterior tibial Patent Compressible + +-------+ + Right peroneal Patent Compressible + +-------+ + Right gastrocnemius Patent Compressible + +-------+ + Right soleal Patent Compressible + +-------+ + Left common femoral Patent Normal phasicity; spontaneous; normal augmentation; compressible + +-------+ + Left saphenofemoral junction Patent Compressible + +-------+ + Left profunda femoral Patent Compressible + +-------+ + Left femoral Patent Normal phasicity; spontaneous; normal augmentation; compressible + +-------+ + Left greater saphenous Patent Normal phasicity; spontaneous; normal augmentation; compressible + +-------+ + Left popliteal Patent Normal phasicity; spontaneous; normal augmentation; compressible + +-------+ + Left posterior tibial Paten
--- NOTE | 2018-11-05 13:30 | CA_ITS ---
PROCEDURE: 2-D M-mode and color Doppler study INDICATIONS FOR THE TEST: Chest pain COPD Heart Murmur Tobacco Smoking+ Palpitations Fatigue Syncope Edema Hypertension+Diabetes Mellitus Rheumatic Fever SOB+LENZ+Obesity+Hyperlipidemia+ Family History HD Additional History pulmonary fibrosis, on bi-pap, hospice patient PATIENT INFORMATION HEIGHT: 72 WEIGHT: 229 GENDER: Male B/P:137/64 2-D/M-MODE INTERPRETATION: 2-D MEASUREMENTS OBSERVED VALUES IN CMS Right Ventricular Dimension (RVDd) 2.5 Interventricular Septum (Thickness)(IVsd) 1.0 Left Ventricular Internal Dimensions(LVIDd) 4.4 Left Ventricular Posterior Wall (Thickness)(LVPWd) 1.0 Aortic Root 3.1 Aortic Cusp Separation 2.3 Left Atrial Dimensions (LAD) 3.2 2D 1. Technically difficult study. 2. Left atrium is mildly enlarged, left ventricle is normal size, mild concentric left ventricular hypertrophy, visually estimated ejection fraction 55%, there is abnormal septal motion. 3.The right atrium and right ventricle are moderately enlarged, contractility of the right ventricle is normal. 4. The mitral and tricuspid valvular grossly normal. 5. The aortic valve is minimally thickened and fibrosed. 6. The pulmonic valve is poorly present. 7. No significant pericardial effusion noted. DOPPLER INTERROGATION: Doppler interrogation of the aortic, mitral and tricuspid valve reveals presence of mild mitral and tricuspid regurgitation, tricuspid regurgitation jet velocity is inadequate for calculation of the right ventricular systolic pressure, grade 1 diastolic dysfunction seen without tissue Doppler evidence of raised left atrial pressure. CONCLUSION: 1. Difficult study because of the patient's factors and poor acoustic windows 2. Mildly enlarged left atrium, normal left ventricular size, mild concentric left ventricular hypertrophy, visually estimated ejection fraction of 55% with no regional wall motion abnormality, there is abnormal septal motion. Grade 1 diastolic dysfunction seen without tissue Doppler evidence of raised left atrial pressure. 3. Moderately enlarged right ventricle with normal contractility. 4. Mild mitral and tricuspid regurgitation 5. No significant pericardial effusion noted.
--- NOTE | 2018-11-05 16:59 | HMH.CONS ---
*Admission Date: 11/03/18 *Chief complaint: Acute on chronic respiratory failure. History from the chart and his family *History of present illness: Mr. Aviles is a 68-year-old man who has had breathless on exertion for the last 3 or 4 years and whom I diagnosed with idiopathic pulmonary fibrosis complicated by exercise hypoxemia in 2017. He had been on Esbriet and tolerating it well recently although he had a bump in liver enzymes initially. Over the last 6-8 months, breathlessness has increased and he has begun to require oxygen with daily activities as well as with sleep. He suffered an exacerbation requiring hospitalization a month or so ago and I saw him in the office a few weeks ago. At that time, he had improved but he was complaining of much more shortness of breath on exertion and obviously needed to wear oxygen continuously. Cough was not a major problem at that time and, as we have done before, we discussed end-of-life planning. Although he would not have been an obvious candidate for lung transplantation because of his weight, I discussed this with him again and he declined to even consider it. About 8 days ago, he went out shopping with his , used a motorized cart and more oxygen and felt fairly well. He went for a haircut on that day and they remember it as a fairly good one. On that day or the next day, he fell at home injuring his right rib cage. He could not recall exactly how it happened and believes he blacked out first. Over the days that followed, he complained of pain on the right side with breathing and some cough but no fever or central chest pain. Breathlessness increased and on the Sunday before admission, he fell again. He believes he blacked out. Although most of my history is from his family and the medical record, he was able to give me a little bit of information. Communication was difficult because he is so breathless and because he required BiPAP. He had been eating fairly well before this and had not noticed any swelling of his legs. Since admission, he has not improved and is somewhat agitated and certainly uncomfortable breathing. Oxygenation has been helped by BiPAP with high oxygen concentrations. He has not responded to intravenous corticosteroids or antibiotics. Hospice has assumed some responsibility for his care and he is receiving morphine and sedative drugs. [facility] History Medical History: Reports:: Gastroesophageal Reflux Disease(GERD), Hepatitis (as a kid), Home Oxygen, Hyperlipidemia, Hypertension, Lung Disease (Pulmonary fibrosis) Denies:: Cancer, Diabetes Mellitus Type 1, Diabetes Mellitus Type 2, MRSA, Pulmonary Embolism Have you ever received a pneumonia vaccine?: No Have you received a flu vaccine this season?: Yes Other Surgeries: Yes: Appendectomy Amputation: No Fractures: No - *Social History Smoking Status: Former smoker Tobacco Type: e-cigarettes Alcohol Intake: current Alcohol Intake Frequency:: a few times a week Substance Use Type: denies use Occupational Status: retired Housing: house Household Members: spouse Travel in the last 8 weeks: None - Psychiatric History Expresses thoughts of harming self/others: None Suicide Plan Description: No Plan *Family Hx:: No significant family history Review of Systems - *Neurologic Reports unsteadiness, Reports dizziness, Reports weakness, Denies abnormal hearing, Denies behavioral changes, Denies confusion, Denies seizure-like activity Meds Home Medications Medication Instructions Recorded Confirmed Type aspirin 81 mg tablet,delayed 81 mg PO DAILY 09/04/18 11/02/18 History release esomeprazole magnesium 20 mg 20 mg PO MOFR PRN 09/04/18 11/03/18 History capsule,delayed release hydrochlorothiazide 25 mg tablet 25 mg PO DAILY 09/04/18 11/02/18 History pravastatin 40 mg tablet 40 mg PO HS 09/04/18 11/03/18 History vitamin A-vitamin C-vit E-min 1 cap PO DAILY cap 09/04/18 11/02/18 History capsule Ipratropium/Albut
--- NOTE | 2018-11-05 17:06 | P.CONS_ITS ---
*Admission Date: 11/03/18 *Chief complaint: Acute on chronic respiratory failure. History from the chart and his family *History of present illness: Mr. Aviles is a 68-year-old man who has had breathless on exertion for the last 3 or 4 years and whom I diagnosed with idiopathic pulmonary fibrosis complicated by exercise hypoxemia in 2017. He had been on Esbriet and tolerating it well recently although he had a bump in liver enzymes initially. Over the last 6-8 months, breathlessness has increased and he has begun to require oxygen with daily activities as well as with sleep. He suffered an exacerbation requiring hospitalization a month or so ago and I saw him in the office a few weeks ago. At that time, he had improved but he was complaining of much more shortness of breath on exertion and obviously needed to wear oxygen continuously. Cough was not a major problem at that time and, as we have done before, we discussed end-of-life planning. Although he would not have been an obvious candidate for lung transplantation because of his weight, I discussed this with him again and he declined to even consider it. About 8 days ago, he went out shopping with his , used a motorized cart and more oxygen and felt fairly well. He went for a haircut on that day and they remember it as a fairly good one. On that day or the next day, he fell at home injuring his right rib cage. He could not recall exactly how it happened and believes he blacked out first. Over the days that followed, he complained of pain on the right side with breathing and some cough but no fever or central chest pain. Breathlessness increased and on the Sunday before admission, he fell again. He believes he blacked out. Although most of my history is from his family and the medical record, he was able to give me a little bit of information. Communication was difficult because he is so breathless and because he required BiPAP. He had been eating fairly well before this and had not noticed any swelling of his legs. Since admission, he has not improved and is somewhat agitated and certainly uncomfortable breathing. Oxygenation has been helped by BiPAP with high oxygen concentrations. He has not responded to intravenous corticosteroids or antibiotics. Hospice has assumed some responsibility for his care and he is receiving morphine and sedative drugs. [facility] History Medical History: Reports:: Gastroesophageal Reflux Disease(GERD), Hepatitis (as a kid), Home Oxygen, Hyperlipidemia, Hypertension, Lung Disease (Pulmonary fibrosis) Denies:: Cancer, Diabetes Mellitus Type 1, Diabetes Mellitus Type 2, MRSA, Pulmonary Embolism Have you ever received a pneumonia vaccine?: No Have you received a flu vaccine this season?: Yes Other Surgeries: Yes: Appendectomy Amputation: No Fractures: No - *Social History Smoking Status: Former smoker Tobacco Type: e-cigarettes Alcohol Intake: current Alcohol Intake Frequency:: a few times a week Substance Use Type: denies use Occupational Status: retired Housing: house Household Members: spouse Travel in the last 8 weeks: None - Psychiatric History Expresses thoughts of harming self/others: None Suicide Plan Description: No Plan *Family Hx:: No significant family history Review of Systems - *Neurologic Reports unsteadiness, Reports dizziness, Reports weakness, Denies abnormal hearing, Denies behavioral changes, Denies confusion, Denies seizure-like activity Meds Home Medications Medication Instructions Recorded Confirmed Type aspirin 81 mg tablet,delayed 81 mg PO DAILY 09/04/18 11/02/18 History release
[2018-11-05 17:32] LABS: Lactate Dehydrogenase 691 U/L (82-234)
[2018-11-05 17:53] LABS: D-Dimer > 5000 ng/mL (0-400)
--- NOTE | 2018-11-05 18:50 | PC.NURSE ---
PATIENT RESTING IN BED WITH FAMILY AT BEDSIDE. HOSPICE MET WITH PATIENT AND FAMILY TODAY. PATIENT REMAINS ON BIPAP AND PAIN MEDICATIONS, STATES HE IS ALWAYS IN PAIN. MD GAVE NEW ORDER FOR 40 OF LASIX IV ONCE, SENT ORDER TO [facility] TWICE WITH NO RESPONSE. CALL RAPHAEL IN REACH, BED IN LOWEST POSITION. WILL CONTINUE TO MONITOR.
[2018-11-06] VITALS (14 sets, daily range): BP systolic 98–150; BP diastolic 77–85; PULSE 69–111; RESP 21–38; TEMP 36.2–36.9; O2SAT 83–100; BMI 31.0
--- NOTE | 2018-11-06 03:39 | PC.NURSE ---
PATIENT HAS RESTED ON AND OFF THIS SHIFT. HE HAS HAD URINARY FREQUENCY THROUGHOUT SHIFT, HOWEVER HE WAS GIVEN IV LASIX PER MD ORDER LAST NIGHT. IT IS NOTED THAT WITH ANY TYPE OF EXERTION (USING URINAL), PATIENT OXYGEN SATURATION DROPS TO MID-UPPER 70'S WITH BIPAP IN PLACE. HE HAS C/O PAIN AND RECEIVED PRN PAIN MEDS, AND HAS ALSO RECEIVED PRN ATIVAN X1 FOR ANXIETY. NO ACUTE CHANGES HAVE BEEN NOTED SINCE PREVIOUS ASSESSMENT. PATIENT IS CURRENTLY IN BED SLEEPING WITH FAMILY AT BEDSIDE. NO OTHER PROBLEMS NOTED AT THIS TIME. VSS. WILL CONTINUE TO MONITOR.
--- NOTE | 2018-11-06 07:44 | PC.NURSE ---
REPORT GIVEN TO Francisco COTA RN
--- NOTE | 2018-11-06 08:14 | HMH.ACPN2 ---
Internal Medicine - PN: Subj *Date: 11/06/18 *Time: 08:14 Interval history: Patient is still on BiPAP. He does state he is in no more pain than normal. His states that when he is given morphine and Ativan he does seem to rest and relax. She states even trying to pull himself up in bed, he gets very short of breath. She also states that when he has to urinate in the urinal, he gets very short of breath. She is requesting a possible sponge bath today and to see if there is something we can do so he can try to eat and also to relieve the work of having to try to move to urinate. Exam Vital signs and Labs for Last 24 Hours: Temp Pulse Resp BP Pulse Ox 98.4 F 90 21 98/77 L 90 L 11/06/18 02:45 11/06/18 05:53 11/06/18 02:45 11/06/18 02:45 11/06/18 05:55 Laboratory Results - last 24 hr 11/05/18 17:00: D-Dimer > 5000 H* 11/05/18 17:00: Lactate Dehydrogenase 691 H I & O for Last 24 hours: Intake & Output 11/03/18 11/04/18 11/05/18 11/06/18 11:59 11:59 11:59 11:59 Intake Total 530 / 530 1040 / 1040 240 / 240 150 / 150 Output Total 400 / 400 825 / 825 1350 / 1350 1250 / 1250 Balance 130 / 130 215 / 215 -1110 / -1110 -1100 / -1100 Weight 229 lb 5 oz Radiology Reports for the Last 24 Hours: Venous doppler - negative Echo: 1. Difficult study because of the patient's factors and poor acoustic windows 2. Mildly enlarged left atrium, normal left ventricular size, mild concentric left ventricular hypertrophy, visually estimated ejection fraction of 55% with no regional wall motion abnormality, there is abnormal septal motion. Grade 1 diastolic dysfunction seen without tissue Doppler evidence of raised left atrial pressure. 3. Moderately enlarged right ventricle with normal contractility. 4. Mild mitral and tricuspid regurgitation 5. No significant pericardial effusion noted. - Constitutional no acute distress - *Routine Respiratory Exam Present: decreased breath sounds - *Routine Cardiovascular Exam Present: RRR - *Routine Abdominal Exam Present: soft, normoactive bowel sounds. Absent: tenderness - *Routine Extremities Exam Absent: cyanosis, clubbing, edema Assessment and Plan (1) LLL pneumonia Current visit: Yes Status: Acute Category: Medical Code(s): J18.1 - Lobar pneumonia, unspecified organism (2) Respiratory failure Current visit: Yes Status: Acute Category: Medical Code(s): J96.90 - Respiratory failure, unspecified, unspecified whether with hypoxia or hypercapnia (3) Pulmonary fibrosis Current visit: Yes Status: Chronic Category: Medical Code(s): J84.10 - Pulmonary fibrosis, unspecified - Assessment and plan all Dx Assessment and Plan for all problems:: Venous Doppler was negative and echo was reviewed. Dr. Medina felt he was too unstable to undergo a CT scan. He spoke with the patient's and with him about the gravity of his condition. Will continue hospice care. Will discuss placing a soto with Dr. Mg so the patient does not have to move to urinate. I explained to the that we could try a sponge bath, but will be unable to move the patient around the bed due to decreasing oxygen saturations. She is requesting that he be able to eat. I will discuss this with Dr. mg as they state every time the mask is removed, his oxygen decreases. I am unsure if placing a Vapotherm would keep his oxygen up enough that he could try to eat.
--- NOTE | 2018-11-06 14:31 | HMH.ACPN ---
Internal Medicine - PN: Subj *Date: 11/06/18 *Time: 14:31 Exam Vital signs and Labs for Last 24 Hours: Temp Pulse Resp BP Pulse Ox 97.1 F L 88 22 118/78 90 L 11/06/18 08:00 11/06/18 14:18 11/06/18 08:00 11/06/18 08:00 11/06/18 14:18 Laboratory Results - last 24 hr 11/05/18 17:00: D-Dimer > 5000 H* 11/05/18 17:00: Lactate Dehydrogenase 691 H I & O for Last 24 hours: Intake & Output 11/03/18 11/04/18 11/05/18 11/06/18 23:59 23:59 23:59 23:59 Intake Total 1570 / 1570 240 / 240 390 / 390 Output Total 975 / 975 1250 / 1250 1200 / 1200 400 / 400 Balance 595 / 595 -1250 / -1250 -960 / -960 -10 / -10 Weight 104.014 kg Assessment and Plan (1) LLL pneumonia Current visit: Yes Status: Acute Category: Medical Code(s): J18.1 - Lobar pneumonia, unspecified organism (2) Respiratory failure Current visit: Yes Status: Acute Category: Medical Code(s): J96.90 - Respiratory failure, unspecified, unspecified whether with hypoxia or hypercapnia (3) Pulmonary fibrosis Current visit: Yes Status: Chronic Category: Medical Code(s): J84.10 - Pulmonary fibrosis, unspecified The patient's infection will respond to the chosen ABx?: Yes Is the patient receiving the right drug, dose, and route?: Yes Could a more targeted ABx be ordered?: No (NO CULTURES BACK YET, CONTINUE)
--- NOTE | 2018-11-06 14:54 | PC.NURSE ---
requesting nurse to room. Upon entering the room stating that pharmacy was filling his medications. This nurse inquired about the need for this refill if patient was going to continue to refuse his medications. Patient states that he is going to start taking his medications again.
--- NOTE | 2018-11-06 16:23 | SW/DCPLANNER ---
PATIENT REMAINS IN THE HOSPITAL UNDER HOSPICE PALLIATIVE/END OF LIFE CARE... HOSPICE IS HERE DAILY AND STAFF OFFERS SUPPORT.. FAMILY REMAINS AT BEDSIDE...
--- NOTE | 2018-11-06 19:20 | PC.NURSE ---
REPORT GIVEN TO TJ. REINOSO
--- NOTE | 2018-11-06 20:47 | PC.NURSE ---
pt states he in comfortable at this time. bipap in place. able to verbalize needs. will continue to monitor
[2018-11-06 22:55] LABS: Microscopic, Urine URINE MICROSCOPIC (MICROSCOPIC)
[2018-11-06 22:56] LABS: Appearance,Urine CLEAR (Clear); Bilirubin,Urine Negative (Negative); Blood, Urine Negative (Negative); Color,Urine YELLOW (Yellow); Glucose,Urine (UA) Negative (Negative); Ketones,Urine 1+ (Negative); Leukocyte Esterase,Urine Negative (Negative); Nitrate,Urine Negative (Negative); PH,Urine 6.5 (5.0-8.5); Protein,Urine Negative (Negative); Specific Gravity, Urine 1.015 (1.005-1.030); Urobilinogen,Urine 0.2 EU/dl (0.2)
[2018-11-06 23:11] LABS: Bacteria,Urine Trace /lpf; Squamous Epithelial Cell,Urine Occasional #/hpf (0-5); WBC,Urine Occasional #/hpf (0-3)
[2018-11-07] VITALS (10 sets, daily range): BP systolic 148–149; BP diastolic 87–95; PULSE 85–107; RESP 22–40; TEMP 36.3–37; O2SAT 86–91; BMI 30.7
--- NOTE | 2018-11-07 02:30 | PC.NURSE ---
pain reported arounf 0130, patient medicated. pt had complained of a general achiness over body. see emar. at this current time patient is sleeping well and doesnt appear to have signs of discomfort
--- NOTE | 2018-11-07 04:19 | PC.NURSE ---
pt remains stable, no change in condtion present. able to make needs known. pt repositioned and givne PO fluids for comfort. no signs of distress. cooperative with Bipap needs. will continue to monitor
--- NOTE | 2018-11-07 06:06 | PC.NURSE ---
pt doing well, family at bedside. questions encouraged and answered.
--- NOTE | 2018-11-07 08:46 | HMH.ACPN2 ---
Internal Medicine - PN: Subj *Date: 11/07/18 *Time: 08:46 Interval history: The patient's says he has been stable overnight. She states he did have a condom catheter placed, but it kept falling off, therefore they placed a Cruz catheter. The patient did get a bath and his sheets were changed yesterday. He is still short of breath with any movement and remains on BiPAP. Exam Vital signs and Labs for Last 24 Hours: Temp Pulse Resp BP Pulse Ox 97.3 F L 85 34 H 148/87 H 91 L 11/07/18 08:00 11/07/18 08:00 11/07/18 08:00 11/07/18 08:00 11/07/18 08:00 Laboratory Results - last 24 hr 11/06/18 18:49: Urine Color Yellow, Urine Appearance Clear, Urine pH 6.5, Ur Specific [place] 1.015, Urine Protein Negative, Urine Glucose (UA) Negative, Urine Ketones 1+, Urine Blood Negative, Urine Nitrate Negative, Urine Bilirubin Negative, Urine Urobilinogen 0.2, Ur Leukocyte Esterase Negative, Urine RBC None, Urine WBC Occasional, Ur Squamous Epith Cells Occasional, Urine Bacteria Trace I & O for Last 24 hours: Intake & Output 11/04/18 11/05/18 11/06/18 11/07/18 11:59 11:59 11:59 11:59 Intake Total 1040 / 1040 240 / 240 420 / 420 1097 / 1097 Output Total 825 / 825 1350 / 1350 1250 / 1250 1175 / 1175 Balance 215 / 215 -1110 / -1110 -830 / -830 -78 / -78 Weight 226 lb 9 oz - Constitutional no acute distress - *Routine Respiratory Exam Present: decreased breath sounds (BIPAP in place) - *Routine Cardiovascular Exam Present: RRR - *Routine Abdominal Exam Present: soft, normoactive bowel sounds. Absent: tenderness - *Routine Extremities Exam Absent: cyanosis, clubbing, edema Assessment and Plan (1) LLL pneumonia Current visit: Yes Status: Acute Category: Medical Code(s): J18.1 - Lobar pneumonia, unspecified organism (2) Respiratory failure Current visit: Yes Status: Acute Category: Medical Code(s): J96.90 - Respiratory failure, unspecified, unspecified whether with hypoxia or hypercapnia (3) Pulmonary fibrosis Current visit: Yes Status: Chronic Category: Medical Code(s): J84.10 - Pulmonary fibrosis, unspecified - Assessment and plan all Dx Assessment and Plan for all problems:: Will continue current treatment and discuss further care with Dr. mg. Maintain comfort.
--- NOTE | 2018-11-07 14:56 | PC.NURSE ---
Pt is alert and oriented, very difficult to understand at times due to wears BiPAP at all times. O2 sats running 88%, will drop into the 70's when BiPAP removed for short periods when pt takes meds or eats. Pt getting Morphine every 3 hours and Lorazepam every 4 hours prn, keeping pt comfortable at this time. Hospice nurse here to visit today. Family at bedside. Will continue to monitor.
--- NOTE | 2018-11-07 15:33 | HMH.CONS ---
*Admission Date: 11/03/18 *Chief complaint: severe shortness of breath *History of present illness: Mr. Aviles is a 68-year-old man who has had breathless on exertion for the last 3 or 4 years and whom I diagnosed with idiopathic pulmonary fibrosis complicated by exercise hypoxemia in 2017. He had been on Esbriet and tolerating it well recently although he had a bump in liver enzymes initially. Over the last 6-8 months, breathlessness has increased and he has begun to require oxygen with daily activities as well as with sleep. He suffered an exacerbation requiring hospitalization a month or so ago and I saw him in the office a few weeks ago. At that time, he had improved but he was complaining of much more shortness of breath on exertion and obviously needed to wear oxygen continuously. Cough was not a major problem at that time and, as we have done before, we discussed end-of-life planning. Although he would not have been an obvious candidate for lung transplantation because of his weight, I discussed this with him again and he declined to even consider it. About 8 days ago, he went out shopping with his , used a motorized cart and more oxygen and felt fairly well. He went for a haircut on that day and they remember it as a fairly good one. On that day or the next day, he fell at home injuring his right rib cage. He could not recall exactly how it happened and believes he blacked out first. Over the days that followed, he complained of pain on the right side with breathing and some cough but no fever or central chest pain. Breathlessness increased and on the Sunday before admission, he fell again. He believes he blacked out. Although most of my history is from his family and the medical record, he was able to give me a little bit of information. Communication was difficult because he is so breathless and because he required BiPAP. He had been eating fairly well before this and had not noticed any swelling of his legs. Since admission, he has not improved and is somewhat agitated and certainly uncomfortable breathing. Oxygenation has been helped by BiPAP with high oxygen concentrations. He has not responded to intravenous corticosteroids or antibiotics. Hospice has assumed some responsibility for his care and he is receiving morphine and sedative drugs. [facility] History Medical History: Reports:: Gastroesophageal Reflux Disease(GERD), Hepatitis (as a kid), Home Oxygen, Hyperlipidemia, Hypertension, Lung Disease (Pulmonary fibrosis) Denies:: Cancer, Diabetes Mellitus Type 1, Diabetes Mellitus Type 2, MRSA, Pulmonary Embolism Have you ever received a pneumonia vaccine?: No Have you received a flu vaccine this season?: Yes Other Surgeries: Yes: Appendectomy Amputation: No Fractures: No - *Social History Smoking Status: Former smoker Tobacco Type: e-cigarettes Alcohol Intake: current Alcohol Intake Frequency:: a few times a week Substance Use Type: denies use Occupational Status: retired Housing: house Household Members: spouse Travel in the last 8 weeks: None - Psychiatric History Expresses thoughts of harming self/others: None Suicide Plan Description: No Plan Family Hx:: No significant family history Review of Systems - Review of Systems Review of systems:: pertinent systems reviewed and negative unless documented below - ENT Reports other Comments: Shortness of breath - *Neurologic Reports unsteadiness, Reports dizziness, Reports weakness, Denies abnormal hearing, Denies behavioral changes, Denies confusion, Denies seizure-like activity Meds Home Medications Medication Instructions Recorded Confirmed Type aspirin 81 mg tablet,delayed 81 mg PO DAILY 09/04/18 11/02/18 History release esomeprazole magnesium 20 mg 20 mg PO MOFR PRN 09/04/18 11/03/18 History capsule,delayed release hydrochlorothiazide 25 mg tablet 25 mg PO DAILY 09/04/18 11/02/18 History pravastatin 40 mg tablet 40 mg PO HS 09/04/18 11/03/18
--- NOTE | 2018-11-07 15:43 | P.CONS_ITS ---
*Admission Date: 11/03/18 *Chief complaint: severe shortness of breath *History of present illness: Mr. Aviles is a 68-year-old man who has had breathless on exertion for the last 3 or 4 years and whom I diagnosed with idiopathic pulmonary fibrosis complicated by exercise hypoxemia in 2017. He had been on Esbriet and tolerating it well recently although he had a bump in liver enzymes initially. Over the last 6-8 months, breathlessness has increased and he has begun to require oxygen with daily activities as well as with sleep. He suffered an exacerbation requiring hospitalization a month or so ago and I saw him in the office a few weeks ago. At that time, he had improved but he was complaining of much more shortness of breath on exertion and obviously needed to wear oxygen continuously. Cough was not a major problem at that time and, as we have done before, we discussed end-of-life planning. Although he would not have been an obvious candidate for lung transplantation because of his weight, I discussed this with him again and he declined to even consider it. About 8 days ago, he went out shopping with his , used a motorized cart and more oxygen and felt fairly well. He went for a haircut on that day and they remember it as a fairly good one. On that day or the next day, he fell at home injuring his right rib cage. He could not recall exactly how it happened and believes he blacked out first. Over the days that followed, he complained of pain on the right side with breathing and some cough but no fever or central chest pain. Breathlessness increased and on the Sunday before admission, he fell again. He believes he blacked out. Although most of my history is from his family and the medical record, he was able to give me a little bit of information. Communication was difficult because he is so breathless and because he required BiPAP. He had been eating fairly well before this and had not noticed any swelling of his legs. Since admission, he has not improved and is somewhat agitated and certainly uncomfortable breathing. Oxygenation has been helped by BiPAP with high oxygen concentrations. He has not responded to intravenous corticosteroids or antib iotics. Hospice has assumed some responsibility for his care and he is receiving morphine and sedative drugs. [facility] History Medical History: Reports:: Gastroesophageal Reflux Disease(GERD), Hepatitis (as a kid), Home Oxygen, Hyperlipidemia, Hypertension, Lung Disease (Pulmonary fibrosis) Denies:: Cancer, Diabetes Mellitus Type 1, Diabetes Mellitus Type 2, MRSA, Pulmonary Embolism Have you ever received a pneumonia vaccine?: No Have you received a flu vaccine this season?: Yes Other Surgeries: Yes: Appendectomy Amputation: No Fractures: No - *Social History Smoking Status: Former smoker Tobacco Type: e-cigarettes Alcohol Intake: current Alcohol Intake Frequency:: a few times a week Substance Use Type: denies use Occupational Status: retired Housing: house Household Members: spouse Travel in the last 8 weeks: None - Psychiatric History Expresses thoughts of harming self/others: None Suicide Plan Description: No Plan Family Hx:: No significant family history Review of Systems - Review of Systems Review of systems:: pertinent systems reviewed and negative unless documented below - ENT Reports other Comments: Shortness of breath - *Neurologic Reports unsteadiness, Reports dizziness, Reports weakness, Denies abnormal hearing, Denies behavioral changes, Denies confusion, Denies seizure-like activity Meds Home Medications
--- NOTE | 2018-11-07 15:46 | PC.NURSE ---
1515-Dr Cartagena here to see pt.
--- NOTE | 2018-11-07 15:46 | PC.NURSE ---
1520- Notified Jazmin Nagy APRN that Dr. Cartagena feels like pt needs to be on the ventilator. States she will talk to Dr. Saez. 1550- Notified pts nurse, Maya at Hospice.
--- NOTE | 2018-11-07 17:27 | PC.NURSE ---
RESPIRATORY CARE NOTE: ( AT 1715) PLACED A TEGADERM DOT ON PATIENT'S NOSE DUE TO REDNESS, AND IRRITATION TO HELP PREVENT SKIN BREAKDOWN FROM CONTINUOUS BIPAP WEAR. NURSE AND ONCOMING RT ARE AWARE THIS WAS PLACED ON PATIENT.
--- NOTE | 2018-11-07 18:17 | P.PN_ITS ---
Internal Medicine - PN: Subj *Date: 11/07/18 *Time: 18:12 Interval history: Spoke to Drs. Saez and Osiel today. Just spoke to the patient and his at the bedside with the primary RN. Discussed end of life care. Patient indicated to me that he does not want to be intubated and does not want a tracheotomy. He would like to be kept comfortable. Patient states this is consistent with all of their previous conversations about the treatment he would want at the end of his life. Patient has been accepted into Hospice care. Will plan to convert him to comfort measures only. Plan to increase his dose of as needed Lorazepam and Morphine. Exam Vital signs and Labs for Last 24 Hours: Temp Pulse Resp BP Pulse Ox 97.3 F L 96 H 34 H 148/87 H 87 L 11/07/18 08:00 11/07/18 17:03 11/07/18 08:00 11/07/18 08:00 11/07/18 17:03 Laboratory Results - last 24 hr 11/06/18 18:49: Urine Color Yellow, Urine Appearance Clear, Urine pH 6.5, Ur Specific [place] 1.015, Urine Protein Negative, Urine Glucose (UA) Negative, Urine Ketones 1+, Urine Blood Negative, Urine Nitrate Negative, Urine Bilirubin Negative, Urine Urobilinogen 0.2, Ur Leukocyte Esterase Negative, Urine RBC None, Urine WBC Occasional, Ur Squamous Epith Cells Occasional, Urine Bacteria Trace I & O for Last 24 hours: Intake & Output 11/05/18 11/06/18 11/07/18 11/08/18 11:59 11:59 11:59 11:59 Intake Total 240 / 240 420 / 420 1097 / 1097 360 / 360 Output Total 1350 / 1350 1250 / 1250 1175 / 1175 Balance -1110 / -1110 -830 / -830 -78 / -78 360 / 360 Weight 226 lb 9 oz Microbiology Reports for the Last 24 Hours: Microbiology 11/02/18 17:22 Blood Blood Culture - Final NO GROWTH AFTER 5 DAYS 11/02/18 17:13 Blood Blood Culture - Final NO GROWTH AFTER 5 DAYS Assessment and Plan (1) LLL pneumonia Current visit: Yes Status: Acute Category: Medical Code(s): J18.1 - Lobar pneumonia, unspecified organism (2) Respiratory failure Current visit: Yes Status: Acute Qualifiers: Chronicity: acute on chronic Respiratory failure complication: hypoxia Qualified Code(s): J96.21 - Acute and chronic respiratory failure with hypoxia Category: Medical Code(s): J96.90 - Respiratory failure, unspecified, unspecified whether with hypoxia or hypercapnia (3) Pulmonary fibrosis Current visit: Yes Status: Chronic Category: Medical Code(s): J84.10 - Pulmonary fibrosis, unspecified (4) End of life care Current visit: Yes Status: Acute Category: Medical Code(s): Z51.5 - Encounter for palliative care - Assessment and plan all Dx Assessment and Plan for all problems:: Will change to comfort measures only now.
--- NOTE | 2018-11-07 19:10 | PC.NURSE ---
PT DNR, VERIFIED SIGNED AND ON CHART, REPORT FROM JOESPH BUENO.
--- NOTE | 2018-11-07 22:45 | PC.NURSE ---
PT'S STATED PT HAD TALKED TO THEM IN [place] EARLIER AND WANTS BIPAP OFF. STATES PATIENT SAYING HE WANTS GOD TO COME TAKE HIM HOME. EXPLAINED PT MAY STRUGGLE WITH BREATHING OR GASP, AND HE CAN HAVE ANOTHER DOSE OF MORPHINE AND ATIVAN TOGETHER AT 0025, THIS WOULD HELP WITH PT'S COMFORT. STATES OK.
--- NOTE | 2018-11-07 23:10 | PC.NURSE ---
PT'S AND CHILDREN IN [facility], STATES PT WANTS IT OFF NOW. I TOLD THEM I'D CALL DR. KO AND ASK FOR EITHER AN EXTRA DOSE OF MED TO BE GIVEN EARLY, OR FREQUENCY CHANGE.
--- NOTE | 2018-11-07 23:20 | PC.NURSE ---
SPOKE WITH DR. KO ABOUT SITUATION. HE SAID IT'S FINE IF HE WANTS IT REMOVED. STATES I CAN PUT NC OR SIMPLE MASK ON IF THEY WANT. HE ALSO INCREASED FREQUENCY TIMES FOR ATIVAN AND MORPHINE.
--- NOTE | 2018-11-07 23:28 | PC.NURSE ---
PT TOOK BIPAP ON OFF WHILE I WAS DRAWING UP MEDS. PT ALMOST IMMEDIATELY CYANOTIC IN FACE AND AROUND LIPS. IV MORPHINE 2MG GIVEN, FLUSHED THEN 1MG IV ATIVAN GIVEN AND FLUSHED AFTER. PT GASPING SOME. NC 2L PLACED ON PT. AND 2 ADULT CHILDREN AT BEDSIDE. TOLD I WOULD BE BACK TO CHECK ON THEM AND PLEASE EITHER COME GET ME OR USE CALL LIGHT IF THEY NEED ME BEFORE I COME BACK IN.
--- NOTE | 2018-11-08 00:20 | PC.NURSE ---
SPOKE WITH DR. KO TO NOTIFY HIM OF PT . STATES HE WOULD LIKE ME TO DR. KC FROM ER A COURTESY TO PLEASE COME AND PRONOUNCE PT.
--- NOTE | 2018-11-08 00:23 | PC.NURSE ---
SPOKE WITH DR. KC, STATED HE WILL COME PRONOUNCE PT.
--- NOTE | 2018-11-08 00:27 | PC.NURSE ---
DR. KC AT BEDSIDE TO PRONOUNCE PT.
--- NOTE | 2018-11-08 00:37 | HMH.DEATH ---
Pronouncement Note - Date and Time of Date of : 11/08/18 Time of : 00:05 - PCOD Preliminary cause of : Acute respiratory failure - Additional Data Confirmation of : no pulse, no respirations, no heart sounds, pupils fixed and dilated Family: at bedside Attending/PCP notified?: Yes Attending physician: Pilar Saez MD Was code activated?: No Autopsy requested?: No wrapper layer and examiner soft work notified?: No Organ bank notified?: Yes Advance directives: Yes
--- NOTE | 2018-11-08 00:40 | PC.NURSE ---
SPOKE WITH NHAN REED WITH [facility], SHE STATES PT IS CANDIDATE FOR [facility]. SHE ASKED IF I WOULD GIVE HER A CALL FLOOR LAYER TO TIME WHEN FAMILY PLANS TO LEAVE AND BEFORE NOTIFYING HOME.
--- NOTE | 2018-11-08 01:15 | PC.NURSE ---
CALLED [facility] WHEELAGE CLERK BACK AND TOLD PT'S THAT CARE AFTER WHEELAGE CLERK WOULD LIKE TO SPEAK WITH HER. DECLINED DONATION.
--- NOTE | 2018-11-08 01:30 | PC.NURSE ---
PT'S MEDS RETURNED TO IN BELONGING BAG. STATED [facility] FROM [facility] IS WHO WE NOTIFY TO TIME CHECKER BODY. ALL FAMILY MEMBERS LEFT TOGETHER.
--- NOTE | 2018-11-08 01:45 | PC.NURSE ---
[facility] NOTIFIED. STATED THEY WOULD BE HERE IN APPROXIMATELY 1.5HR.
--- NOTE | 2018-11-08 01:50 | PC.NURSE ---
IV AND ESCOBAR CATHETER REMOVED FROM PT. SRNA'S AT BEDSIDE GIVING POST MORTEM BATH.
--- NOTE | 2018-11-08 03:57 | PC.NURSE ---
PT LEFT FACILITY WITH LOADING MACHINE TOOL SETTER FROM [facility]. PT WEARING HIS EYE GLASSES REQUESTED PER .
--- NOTE | 2018-11-10 14:13 | HMH.DCSUM ---
General - General Admission date:: 11/02/18 Discharge date: 11/08/18 HPI HPI: This 68-year-old white male was admitted through the emergency room yesterday evening. He has known pulmonary fibrosis. He is followed by Dr. saez and by Dr. Medina. He states that he did well after his discharge in August. 6 days ago, however, he passed out and fell. Injuring his right lower rib area. He has remained more short of breath ever since. Thus his presented to the emergency room. See the ER record. He was on BiPAP for a period of time in the emergency room. He has been maintained on Vapotherm since then. He feels somewhat better. Resting his sats have been in the 90% range but declined with any exertion whatsoever. He has had a cough with little sputum production. Hospital Course Hospital Course: The patient had a chest x-ray showing cardiomegaly with pulmonary fibrosis and a possible left lower lobe pneumonia. He was started on duonebs and antibiotics as well as BIPAP. He was having a difficult time tolerating the BiPAP, therefore he was switched to Vapotherm, however the Vapotherm did not work. His oxygen saturations were dropping to the point where he was so hypoxic he was on the verge of having a seizure. He had to be placed temporarily on 100% nonrebreather because he felt like he was going to pass out. He had to be switched back to BiPAP and his sats came back up to 80%. He was given a dose of IV Lasix and another dose of IV Solu-Medrol. He was also scheduled on some pain medication. He did have a DNR order and did not wish to be intubated. He had a repeat chest x-ray showing diffuse bilateral infiltrates. It was felt his prognosis was very guarded. Dr. Saez did have a conversation with the patient's and daughter and they understood the gravity of situation and decided to involve hospice. Dr. Medina was consulted. Dr. Medina went to see the patient and ordered a venous Doppler which was negative and an echo which showed an EF of 55%. He felt the patient was too unstable to undergo a CT scan. He did speak with the patient and his about the gravity of his condition and felt hospice was an appropriate course of action. The patient did have a Cruz catheter placed as he became short of breath even trying to urinate in the urinal. His sats increased into the 90s on BiPAP. The patient became more alert and had a conversation with Dr. Saez about a possible tracheostomy. Dr. Cartagena was therefore consulted for possible tracheostomy placement. Dr. Cartagena saw the patient and felt he was in respiratory distress and would need intubation rather than tracheostomy placement. Dr. Toth went and spoke with the patient, his , and his nurse about end-of-life care. The patient did not wish to be intubated or have a tracheostomy and wanted to be kept comfortable. The patient was converted to comfort measures only and his doses of lorazepam and morphine were increased as his sats were dropping even on BiPAP. Dr. Rosales was called to pronounce the patient on 11/08/18 at 0:05. Objective Vital signs: Temp Pulse Resp BP Pulse Ox 98.6 F 96 H 36 H 149/95 H 88 L 11/07/18 20:00 11/07/18 22:46 11/07/18 20:20 11/07/18 20:00 11/07/18 20:20 Narrative: - Constitutional no acute distress (But obviously short of air and using supplemental oxygen per Vapotherm.) - *Routine HEENT Exam Head: Present: normocephalic. Absent: atraumatic Eye: Present: PERRL ENT: Present: mucous membranes moist - *Routine Neck Exam Absent: lymphadenopathy, thyromegaly - Routine Chest/Breast/Axilla Exam Chest wall: Absent: tenderness Axillae: Absent: lymphadenopathy - *Routine Respiratory Exam Comments: He is moving air fairly well. He has bilateral fibrotic rales. - *Routine Cardiovascular Exam Present: RRR - *Routine Abdominal Exam Present: soft, distended. Absent: tenderness - *Routine Extremities Exam
== END 2018-11-08 03:57 | disposition expired | DRG 189 ==
LOC: ER 17:16 → 2ND 18:38
PROVIDERS: Internal Medicine; Nurse Practitioner Family; Admitting Provider Family Medicine; Emergency Provider Emergency Medicine; PCP Family Medicine; Visit Provider Family Medicine
DX: J96.01 Acute respiratory failure with hypoxia (principal); J18.9 Pneumonia, unspecified organism; J84.10 Pulmonary fibrosis, unspecified; Z99.81 Dependence on supplemental oxygen; Z79.899 Other long term (current) drug therapy; Z66 Do not resuscitate; I10 Essential (primary) hypertension; E78.5 Hyperlipidemia, unspecified; Z72.0 Tobacco use; Z79.82 Long term (current) use of aspirin
CPT/HCPCS: 94660; 36415; 71045; 71101; 80048; 80053; 81001; 82550; 82553; 82803; 82962; 83605; 83615; 83735; 83880; 84484; 85025; 85378; 87040; 87086; 87205; 93005; 93306; 93970; 94640; 94760; 94761; 96365; 96367; 96375; 99283; 99285; J0692; J1956